=== PATIENT | male | born 1950 | race Caucasian/White ===

== ENCOUNTER 2022-07-27 19:35 | Inpatient (IN) ==
[2022-07-27] MEDS ORDERED: SODIUM CHLORIDE 0.9% 500 ML IV STA (20:04)
[2022-07-27] MEDS ORDERED: SODIUM CHLORIDE 0.9% 1000ML 2,000 ML IV ONE (20:15)
[2022-07-27] MEDS ORDERED: PIPERACILLIN/TAZOBACTAM 4.5 GM/120 ML BAG IV ONE (20:16)
--- NOTE | 2022-07-27 20:17 | Emergency Department Note ---
Impression & Plan Sepsis, Syncope, Anemia, Leukocytosis, Pyelonephritis, GUSTAVO (acute kidney injury) ED Provider Note NAME: CONNIE MENESES AGE: 71 SEX: M : 1950 ARRIVES VIA: Walk-In INFORMANT: Patient ED PROVIDER(S): Rock Marques DO CHIEF COMPLAINT: syncope HPI: Patient is a 71-year-old male with a past medical history of bladder cancer with a right nephrostomy tube in place who presents to the ER for syncopal event earlier today. Patient denies any head or neck pain. He notes he was on the ground for 1 to 2 hours as he was unable to get himself up. Family notes that he was a little confused yesterday. He denies any focal weakness or numbness in the arms or legs. He notes he is feeling slightly better right now. No chest pain or shortness of breath. No cough or congestion. No urinary symptoms but they are concerned that he may have a infection of his nephrostomy tube. PAST MEDICAL HISTORY:See Below PAST SURGICAL HISTORY:See Below FAMILY HISTORY:See Below SOCIAL HISTORY:See Below HOME MEDICATIONS:See Below ALLERGIES:See Below VITALS:See Below PHYSICAL EXAMINATION: GENERAL: Sitting up in bed, alert, well appearing, well nourished, no distress, non-toxic HEAD: Normal cephalic atraumatic EYE EXAM: normal conjunctiva. PERRL and EOM's grossly intact. OROPHARYNX: no exudate, no erythema, lips, buccal mucosa, and tongue normal and mucous membranes are moist NECK: supple, no nuchal rigidity, no adenopathy, non-tender CHEST: No reproducible tenderness LUNGS: Clear to auscultation. Normal chest wall mechanics HEART: no murmurs, S1 normal and S2 normal ABDOMEN: abdomen soft, non-tender, normo-active bowel sounds, no masses, no rebound or guarding. BACK: Nephrostomy tube in place on the right SKIN: no rashes and no bruising UPPER EXTREMITIES: upper extremities are grossly normal. LOWER EXTREMITIES: No pitting edema. NEURO EXAM: Normal sensorium, cranial nerves II-XII grossly intact, normal speech, no gross weakness of arms, no gross weakness of legs. No drift. Finger to nose intact. Gross sensation intact. MEDICAL DECISION MAKING: Patient is a 71-year-old male who presents ER for syncopal episode. IV was established blood work was obtained. External records were reviewed. Labs show leukocytosis of 35,000. Mild anemia at 7.9 down from baseline of what appears to be 9. INR unremarkable. BMP with a creatinine of 2.9 with known GUSTAVO. CO2 slightly low at 18 and a question of this secondary to renal failure. Troponin elevated at 124. Pro-Walker elevated at 91. UA does suggest a UTI with leuks whites and bacteria although contaminated. CT abdomen pelvis showed urothelial thickening bilaterally. Do favor this consistent with [place]. Patient was given IV fluids 2.5 L. He was given IV antibiotics. Updated bedside admitted to the hospital for further work-up. Triage Nursing notes reviewed. Limited review of prior medical records performed Vital Signs: reviewed and remarkable for hypotension and tachy Differential diagnosis: Differential diagnosis includes etiologies such as sepsis, UTI, pneumonia, metabolic, electrolyte abnormalities, cardiac sources, intracerebral event, t oxicologic, neurological, as well as others were entertained. ER treatment provided: See below Diagnostics interpreted by me include EKG and cardiac monitoring as listed below: -Cardiac Monitoring: An order was placed for continuous cardiac monitoring. The monitor shows a rate of 101 with sinus rhythm. -ECG: Sinus rhythm rate of 91 Normal axis No PVCs Mild ST segment -Laboratory studies:Interpreted by me as stated above in MDM and shown below. Imaging studies: Xrays: As interpreted by me: Portable AP upright 1 view of the chest shows no pneumonia CTs show: CT head and abdomen pelvis as described above Consultation(s): As described in MDM Procedures:none Critical Care: None Past Med/Surg History Medical History Bladder cancer Diabetes mellitus Dyslipidemia GERD (gastroesophageal reflux disease) HTN (hypertension) Surgical History S/P urological surgery Social History Smoking Status: Never smoker Preferred Language: Armenian Feels Safe at Home: Yes Allergies Allergies Allergy/AdvReac Type Severity Reaction Status Date / Time No Known Allergies Allergy Verified 07/27/22 21:21 Home Meds Home Medications Medication Instructions Recorded Confirmed allopurinol 100 mg tablet 100 mg PO QAM 01/02/22 07/27/22 atorvastatin 20 mg tablet 20 mg PO DAILY 01/02/22 07/27/22 cinnamon bark 500 mg capsule 2,000 mg PO DAILY 01/02/22 07/27/22 (Cinnamon) metformin 500 mg tablet,extended 500 mg PO DAILY 01/02/22 07/27/22 release 24 hr omeprazole 20 mg capsule,delayed 20 mg PO DAILYBB 01/02/22 07/27/22 release vitamin B complex 1 cap PO DAILY 01/02/22 07/27/22 acetaminophen 500 mg tablet 1,000 mg PO TID PRN Pain 07/27/22 07/27/22 (Tylenol Extra Strength) amlodipine 5 mg tablet 5 mg PO DAILY 07/27/22 07/27/22 linagliptin 5 mg tablet (Tradjenta) 5 mg PO DAILY 07/27/22 07/27/22 losartan 50 mg tablet 50 mg PO DAILY 07/27/22 07/27/22 sodium chloride 0.9 % (flush) 10 ml intra-catheter DAILY 07/27/22 07/27/22 thiamine HCl (vitamin B1) 50 mg 100 mg PO DAILY 07/27/22 07/27/22 tablet Results & Data (ED) Vital Signs Vital Signs - 24 hr 07/27/22 19:45 07/27/22 20:20 07/27/22 20:20 Temperature 36.3 C L Temperature Source Temporal Artery Scan Pulse Rate 103 H Pulse Rate [Apical] 85 Pulse Rate from SpO2 Sensor Pulse Rhythm Regular Pulse Strength Normal Respiratory Rate 18 20 Respiratory Effort / Characteristics Non-Labored Spontaneous Respiratory Depth Normal Respiratory Pattern Regular Blood Pressure 82/57 L Blood Pressure [Right Arm] 103/59 L Blood Pressure Mean 65 Blood Pressure Mean [Right Arm] 73 Blood Pressure Position Sitting Pulse Oximetry 98 98 98 Oxygen Delivery Method Room Air Room Air Room Air Sepsis Recent Fever Within 48 Hours No Sepsis New/Unexplained Change in Mental Status No Sepsis Action Taken by Nursing No Action Required 07/27/22 20:10 07/27/22 20:10 07/27/22 20:30 Temperature Temperature Source Pulse Rate 90 89 Pulse Rate [Apical] Pulse Rate from SpO2 Sensor 90 Pulse Rhythm Pulse Strength Respiratory Rate 18 Respiratory Effort / Characteristics Respiratory Depth Respiratory Pattern Blood Pressure 97/54 L Blood Pressure [Right Arm] Blood Pressure Mean 68 Blood Pressure Mean [Right Arm] Blood Pressure Position Pulse Oximetry 99 Oxygen Delivery Method Sepsis Recent Fever Within 48 Hours Sepsis New/Unexplained Change in Mental Status Sepsis Action Taken by Nursing 07/27/22 20:30 07/27/22 21:00 07/27/22 21:00 Temperature Temperature Source Pulse Rate 79 77 Pulse Rate [Apical] Pulse Rate from SpO2 Sensor 79 76 Pulse Rhythm Pulse Strength Respiratory Rate 15 16 Respiratory Effort / Characteristics Respiratory Depth Respiratory Pattern Blood Pressure 99/55 L Blood Pressure [Right Arm] Blood Pressure Mean 69 Blood Pressure Mean [Right Arm] Blood Pressure Position Pulse Oximetry 98 95 Oxygen Delivery Method Sepsis Recent Fever Within 48 Hours Sepsis New/Unexplained Change in Mental Status Sepsis Action Taken by Nursing 07/27/22 21:30 07/27/22 21:30 07/27/22 22:00 Temperature Temperature Source Pulse Rate 72 Pulse Rate [Apical] Pulse Rate from SpO2 Sensor 72 Pulse Rhythm Pulse Strength Respiratory Rate 16 Respiratory Effort / Characteristics Respiratory Depth Respiratory Pattern Blood Pressure 109/55 L 99/56 L Blood Pressure [Right Arm] Blood Pressure Mean 73 70 Blood Pressure Mean [Right Arm] Blood Pressure Position Pulse Oximetry 97 Oxygen Delivery Method Sepsis Recent Fever Within 48 Hours Sepsis New/Unexplained Change in Mental Status Sepsis Action Taken by Nursing 07/27/22 22:00 07/27/22 22:30 07/27/22 22:30 Temperature Temperature Source Pulse Rate 80 70 Pulse Rate [Apical] Pulse Rate from SpO2 Sensor 74 70 Pulse Rhythm Pulse Strength Respiratory Rate 14 18 Respiratory Effort / Characteristics Respiratory Depth Respiratory Pattern Blood Pressure 110/56 L Blood Pressure [Right Arm] Blood Pressure Mean 74 Blood Pressure Mean [Right Arm] Blood Pressure Position Pulse Oximetry 87 L 98 Oxygen Delivery Method Sepsis Recent Fever Within 48 Hours Sepsis New/Unexplained Change in Mental Status Sepsis Action Taken by Nursing 07/28/22 00:38 Temperature Temperature Source Pulse Rate 69 Pulse Rate [Apical] Pulse Rate from SpO2 Sensor Pulse Rhythm Pulse Strength Respiratory Rate Respiratory Effort / Characteristics Respiratory Depth Respiratory Pattern Blood Pressure Blood Pressure [Right Arm] Blood Pressure Mean Blood Pressure Mean [Right Arm] Blood Pressure Position Pulse Oximetry Oxygen Delivery Method Sepsis Recent Fever Within 48 Hours Sepsis New/Unexplained Change in Mental Status Sepsis Action Taken by Nursing Laboratory Data 07/27/22 22:35 07/27/22 20:08 Lab Results 07/27/22 07/27/22 07/27/22 Range/Units 20:08 20:08 20:08 WBC 35.13 H* (4.8-10.8) K/ul RBC 3.43 L (4.70-6.10) M/uL Hgb 7.9 L (14.0-18.0) g/dl Hct 24.8 L (42.0-52.0) % MCV 72.3 L (80.0-100.0) fL MCH 23.0 L (25.0-34.0) pg MCHC 31.9 L (32.0-36.0) g/dL RDW Std Deviation 45.5 (36.4-46.3) fL RDW Coeff of Krystal 17.4 H (11.5-14.5) % Plt Count 423 H (130-400) K/uL MPV 8.4 L (9.4-12.4) fL Immature Gran % (Auto) 1.3 % Neut % (Auto) 88.1 % Lymph % (Auto) 7.2 % [place] % (Auto) 3.0 % Eos % (Auto) 0.0 % Baso % (Auto) 0.4 % Neut # (Auto) 30.95 H (1.40-6.50) K/uL Lymph # (Auto) 2.53 (1.2-3.4) K/uL [place] # (Auto) 1.04 H (0.11-0.59) K/uL Eos # (Auto) 0.01 (0-0.50) K/uL Baso # (Auto) 0.13 (0-0.2) K/uL Immature Gran # (Auto) 0.47 H (0.01-0.20) K/uL Hypochromasia Present PT (9.0-12.0) Seconds INR (0.9-1.1) VBG pH (7.36-7.41) VBG pCO2 (38-50) mmHg VBG pO2 mmHg VBG HCO3 mmol/L VBG O2 Saturation % VBG Base Excess mEq/L Sodium 130 L (136-145) mmol/L Potassium 3.7 (3.5-5.1) mmol/L Chloride 100 (98-107) mmol/L Carbon Dioxide 18 L (21-32) mmol/L Anion Gap 12 H (3-11) BUN 70 H (6-23) mg/dl Creatinine 2.96 H (0.6-1.4) mg/dl Est Cr Clr Drug Dosing 22.2 ml/min Est GFR ( Amer) 23.2 ml/min Est GFR (Non-Af Amer) 20.0 ml/min BUN/Creatinine Ratio 23.6 H (10-20) Glucose 273 H (70-99(Fasting)) mg/dl Osmolality (280-300) mOsm/kg Lactate 1.5 (0.4-2.0) mmol/L Calcium 10.0 (8.6-10.3) mg/dl Magnesium (1.7-2.4) mg/dl Total Bilirubin 0.5 (0.2-1.0) mg/dl AST 18 (13-39) U/L ALT 11 (7-52) U/L Alkaline Phosphatase 141 H (34-104) U/L Ammonia (18-72) umol/L Total Creatine Kinase 478 H (30-223) U/L Troponin I High Sens 175.0 H* (0-20) pg/ml Total Protein 7.3 (6.0-8.3) gm/dl Albumin 3.0 L (3.4-5.0) gm/dl Globulin 4.3 H (2.5-4.0) gm/dl Albumin/Globulin Ratio 0.7 L (0.9-2) Lipase 24 (11-82) U/L Procalcitonin (0-0.5) ng/ml TSH (0.300-4.500) uIu/ml Urine Color Urine Appearance (Clear) Urine pH (4.5-7.5) Ur Specific [place] (1.000-1.030) Urine Protein (Negative) Urine Glucose (UA) (Negative) Urine Ketones (Negative) Urine Blood (Negative) Urine Nitrite (Negative) Urine Bilirubin (Negative) Urine Urobilinogen (Negative) Ur Leukocyte Esterase (Negative) Urine WBC (Auto) (0-5) /hpf Urine RBC (Auto) (0-4) /hpf U Hyaline Cast (Auto) (0-5) /lpf U Epithel Cells (Auto) (0-5) /lpf Urine Bacteria (Auto) (Negative) Amorphous Sediment (None Prsent) Urine Yeast Ethyl Alcohol mg/dL (<10.0) mg/dl SARS-CoV-2 (PCR) (Negative) Influenza Type A (PCR) (Neg) Influenza Type B (PCR) (Neg) RSV (RT-PCR) (Neg) Blood Type Antibody Screen 07/27/22 07/27/22 07/27/22 Range/Units 20:08 20:08 20:08 WBC (4.8-10.8) K/ul RBC (4.70-6.10) M/uL Hgb (14.0-18.0) g/dl Hct (42.0-52.0) % MCV (80.0-100.0) fL MCH (25.0-34.0) pg MCHC (32.0-36.0) g/dL RDW Std Deviation (36.4-46.3) fL RDW Coeff of Krystal (11.5-14.5) % Plt Count (130-400) K/uL MPV (9.4-12.4) fL Immature Gran % (Auto) % Neut % (Auto) % Lymph % (Auto) % [place] % (Auto) % Eos % (Auto) % Baso % (Auto) % Neut # (Auto) (1.40-6.50) K/uL Lymph # (Auto) (1.2-3.4) K/uL [place] # (Auto) (0.11-0.59) K/uL Eos # (Auto) (0-0.50) K/uL Baso # (Auto) (0-0.2) K/uL Immature Gran # (Auto) (0.01-0.20) K/uL Hypochromasia PT (9.0-12.0) Seconds INR (0.9-1.1) VBG pH (7.36-7.41) VBG pCO2 (38-50) mmHg VBG pO2 mmHg VBG HCO3 mmol/L VBG O2 Saturation % VBG Base Excess mEq/L Sodium (136-145) mmol/L Potassium (3.5-5.1) mmol/L Chloride (98-107) mmol/L Carbon Dioxide (21-32) mmol/L Anion Gap (3-11) BUN (6-23) mg/dl Creatinine (0.6-1.4) mg/dl Est Cr Clr Drug Dosing ml/min Est GFR ( Amer) ml/min Est GFR (Non-Af Amer) ml/min BUN/Creatinine Ratio (10-20) Glucose (70-99(Fasting)) mg/dl Osmolality (280-300) mOsm/kg Lactate (0.4-2.0) mmol/L Calcium (8.6-10.3) mg/dl Magnesium (1.7-2.4) mg/dl Total Bilirubin (0.2-1.0) mg/dl AST (13-39) U/L ALT (7-52) U/L Alkaline Phosphatase (34-104) U/L Ammonia (18-72) umol/L Total Creatine Kinase (30-223) U/L Troponin I High Sens (0-20) pg/ml Total Protein (6.0-8.3) gm/dl Albumin (3.4-5.0) gm/dl Globulin (2.5-4.0) gm/dl Albumin/Globulin Ratio (0.9-2) Lipase (11-82) U/L Procalcitonin 91.06 H (0-0.5) ng/ml TSH (0.300-4.500) uIu/ml Urine Color Urine Appearance (Clear) Urine pH (4.5-7.5) Ur Specific [place] (1.000-1.030) Urine Protein (Negative) Urine Glucose (UA) (Negative) Urine Ketones (Negative) Urine Blood (Negative) Urine Nitrite (Negative) Urine Bilirubin (Negative) Urine Urobilinogen (Negative) Ur Leukocyte Esterase (Negative) Urine WBC (Auto) (0-5) /hpf Urine RBC (Auto) (0-4) /hpf U Hyaline Cast (Auto) (0-5) /lpf U Epithel Cells (Auto) (0-5) /lpf Urine Bacteria (Auto) (Negative) Amorphous Sediment (None Prsent) Urine Yeast Ethyl Alcohol mg/dL < 10.0 (<10.0) mg/dl SARS-CoV-2 (PCR) NEGATIVE (Negative) Influenza Type A (PCR) Negative (Neg) Influenza Type B (PCR) Negative (Neg) RSV (RT-PCR) Negative (Neg) Blood Type Antibody Screen 07/27/22 07/27/22 07/27/22 Range/Units 20:08 20:08 20:08 WBC (4.8-10.8) K/ul RBC (4.70-6.10) M/uL Hgb (14.0-18.0) g/dl Hct (42.0-52.0) % MCV (80.0-100.0) fL MCH (25.0-34.0) pg MCHC (32.0-36.0) g/dL RDW Std Deviation (36.4-46.3) fL RDW Coeff of Krystal (11.5-14.5) % Plt Count (130-400) K/uL MPV (9.4-12.4) fL Immature Gran % (Auto) % Neut % (Auto) % Lymph % (Auto) % [place] % (Auto) % Eos % (Auto) % Baso % (Auto) % Neut # (Auto) (1.40-6.50) K/uL Lymph # (Auto) (1.2-3.4) K/uL [place] # (Auto) (0.11-0.59) K/uL Eos # (Auto) (0-0.50) K/uL Baso # (Auto) (0-0.2) K/uL Immature Gran # (Auto) (0.01-0.20) K/uL Hypochromasia PT 11.9 (9.0-12.0) Seconds INR 1.1 (0.9-1.1) VBG pH (7.36-7.41) VBG pCO2 (38-50) mmHg VBG pO2 mmHg VBG HCO3 mmol/L VBG O2 Saturation % VBG Base Excess mEq/L Sodium (136-145) mmol/L Potassium (3.5-5.1) mmol/L Chloride (98-107) mmol/L Carbon Dioxide (21-32) mmol/L Anion Gap (3-11) BUN (6-23) mg/dl Creatinine (0.6-1.4) mg/dl Est Cr Clr Drug Dosing ml/min Est GFR ( Amer) ml/min Est GFR (Non-Af Amer) ml/min BUN/Creatinine Ratio (10-20) Glucose (70-99(Fasting)) mg/dl Osmolality 304 H (280-300) mOsm/kg Lactate (0.4-2.0) mmol/L Calcium (8.6-10.3) mg/dl Magnesium (1.7-2.4) mg/dl Total Bilirubin (0.2-1.0) mg/dl AST (13-39) U/L ALT (7-52) U/L Alkaline Phosphatase (34-104) U/L Ammonia (18-72) umol/L Total Creatine Kinase (30-223) U/L Troponin I High Sens (0-20) pg/ml Total Protein (6.0-8.3) gm/dl Albumin (3.4-5.0) gm/dl Globulin (2.5-4.0) gm/dl Albumin/Globulin Ratio (0.9-2) Lipase (11-82) U/L Procalcitonin (0-0.5) ng/ml TSH 1.969 (0.300-4.500) uIu/ml Urine Color Urine Appearance (Clear) Urine pH (4.5-7.5) Ur Specific [place] (1.000-1.030) Urine Protein (Negative) Urine Glucose (UA) (Negative) Urine Ketones (Negative) Urine Blood (Negative) Urine Nitrite (Negative) Urine Bilirubin (Negative) Urine Urobilinogen (Negative) Ur Leukocyte Esterase (Negative) Urine WBC (Auto) (0-5) /hpf Urine RBC (Auto) (0-4) /hpf U Hyaline Cast (Auto) (0-5) /lpf U Epithel Cells (Auto) (0-5) /lpf Urine Bacteria (Auto) (Negative) Amorphous Sediment (None Prsent) Urine Yeast Ethyl Alcohol mg/dL (<10.0) mg/dl SARS-CoV-2 (PCR) (Negative) Influenza Type A (PCR) (Neg) Influenza Type B (PCR) (Neg) RSV (RT-PCR) (Neg) Blood Type Antibody Screen 07/27/22 07/27/22 07/27/22 Range/Units 21:18 22:35 22:35 WBC (4.8-10.8) K/ul RBC (4.70-6.10) M/uL Hgb (14.0-18.0) g/dl Hct (42.0-52.0) % MCV (80.0-100.0) fL MCH (25.0-34.0) pg MCHC (32.0-36.0) g/dL RDW Std Deviation (36.4-46.3) fL RDW Coeff of Krystal (11.5-14.5) % Plt Count (130-400) K/uL MPV (9.4-12.4) fL Immature Gran % (Auto) % Neut % (Auto) % Lymph % (Auto) % [place] % (Auto) % Eos % (Auto) % Baso % (Auto) % Neut # (Auto) (1.40-6.50) K/uL Lymph # (Auto) (1.2-3.4) K/uL [place] # (Auto) (0.11-0.59) K/uL Eos # (Auto) (0-0.50) K/uL Baso # (Auto) (0-0.2) K/uL Immature Gran # (Auto) (0.01-0.20) K/uL Hypochromasia PT (9.0-12.0) Seconds INR (0.9-1.1) VBG pH (7.36-7.41) VBG pCO2 (38-50) mmHg VBG pO2 mmHg VBG HCO3 mmol/L VBG O2 Saturation % VBG Base Excess mEq/L Sodium (136-145) mmol/L Potassium (3.5-5.1) mmol/L Chloride (98-107) mmol/L Carbon Dioxide (21-32) mmol/L Anion Gap (3-11) BUN (6-23) mg/dl Creatinine (0.6-1.4) mg/dl Est Cr Clr Drug Dosing ml/min Est GFR ( Amer) ml/min Est GFR (Non-Af Amer) ml/min BUN/Creatinine Ratio (10-20) Glucose (70-99(Fasting)) mg/dl Osmolality (280-300) mOsm/kg Lactate (0.4-2.0) mmol/L Calcium (8.6-10.3) mg/dl Magnesium (1.7-2.4) mg/dl Total Bilirubin (0.2-1.0) mg/dl AST (13-39) U/L ALT (7-52) U/L Alkaline Phosphatase (34-104) U/L Ammonia 14.0 L (18-72) umol/L Total Creatine Kinase (30-223) U/L Troponin I High Sens (0-20) pg/ml Total Protein (6.0-8.3) gm/dl Albumin (3.4-5.0) gm/dl Globulin (2.5-4.0) gm/dl Albumin/Globulin Ratio (0.9-2) Lipase (11-82) U/L Procalcitonin (0-0.5) ng/ml TSH (0.300-4.500) uIu/ml Urine Color [place] Urine Appearance Turbid A (Clear) Urine pH 5.0 (4.5-7.5) Ur Specific [place] 1.016 (1.000-1.030) Urine Protein 3+ H (Negative) Urine Glucose (UA) Negative (Negative) Urine Ketones Negative (Negative) Urine Blood 3+ H (Negative) Urine Nitrite Negative (Negative) Urine Bilirubin Negative (Negative) Urine Urobilinogen Negative (Negative) Ur Leukocyte Esterase 3+ H (Negative) Urine WBC (Auto) >30 H (0-5) /hpf Urine RBC (Auto) 5-10 H (0-4) /hpf U Hyaline Cast (Auto) 0 (0-5) /lpf U Epithel Cells (Auto) >30 H (0-5) /lpf Urine Bacteria (Auto) 2+ H (Negative) Amorphous Sediment Present A (None Prsent) Urine Yeast Not Reportable Ethyl Alcohol mg/dL (<10.0) mg/dl SARS-CoV-2 (PCR) (Negative) Influenza Type A (PCR) (Neg) Influenza Type B (PCR) (Neg) RSV (RT-PCR) (Neg) Blood Type A Negative Antibody Screen NEGATIVE 07/27/22 07/27/22 07/27/22 Range/Units 22:35 22:35 22:35 WBC (4.8-10.8) K/ul RBC (4.70-6.10) M/uL Hgb 6.3 L* (14.0-18.0) g/dl Hct 20.2 L* (42.0-52.0) % MCV (80.0-100.0) fL MCH (25.0-34.0) pg MCHC (32.0-36.0) g/dL RDW Std Deviation (36.4-46.3) fL RDW Coeff of Krystal (11.5-14.5) % Plt Count (130-400) K/uL MPV (9.4-12.4) fL Immature Gran % (Auto) % Neut % (Auto) % Lymph % (Auto) % [place] % (Auto) % Eos % (Auto) % Baso % (Auto) % Neut # (Auto) (1.40-6.50) K/uL Lymph # (Auto) (1.2-3.4) K/uL [place] # (Auto) (0.11-0.59) K/uL Eos # (Auto) (0-0.50) K/uL Baso # (Auto) (0-0.2) K/uL Immature Gran # (Auto) (0.01-0.20) K/uL Hypochromasia PT (9.0-12.0) Seconds INR (0.9-1.1) VBG pH 7.29 L (7.36-7.41) VBG pCO2 36 L (38-50) mmHg VBG pO2 22 mmHg VBG HCO3 17 mmol/L VBG O2 Saturation < 60.0 % VBG Base Excess -8.5 mEq/L Sodium (136-145) mmol/L Potassium (3.5-5.1) mmol/L Chloride (98-107) mmol/L Carbon Dioxide (21-32) mmol/L Anion Gap (3-11) BUN (6-23) mg/dl Creatinine (0.6-1.4) mg/dl Est Cr Clr Drug Dosing ml/min Est GFR ( Amer) ml/min Est GFR (Non-Af Amer) ml/min BUN/Creatinine Ratio (10-20) Glucose (70-99(Fasting)) mg/dl Osmolality (280-300) mOsm/kg Lactate (0.4-2.0) mmol/L Calcium (8.6-10.3) mg/dl Magnesium 1.6 L (1.7-2.4) mg/dl Total Bilirubin (0.2-1.0) mg/dl AST (13-39) U/L ALT (7-52) U/L Alkaline Phosphatase (34-104) U/L Ammonia (18-72) umol/L Total Creatine Kinase (30-223) U/L Troponin I High Sens 124.9 H* D (0-20) pg/ml Total Protein (6.0-8.3) gm/dl Albumin (3.4-5.0) gm/dl Globulin (2.5-4.0) gm/dl Albumin/Globulin Ratio (0.9-2) Lipase (11-82) U/L Procalcitonin (0-0.5) ng/ml TSH (0.300-4.500) uIu/ml Urine Color Urine Appearance (Clear) Urine pH (4.5-7.5) Ur Specific [place] (1.000-1.030) Urine Protein (Negative) Urine Glucose (UA) (Negative) Urine Ketones (Negative) Urine Blood (Negative) Urine Nitrite (Negative) Urine Bilirubin (Negative) Urine Urobilinogen (Negative) Ur Leukocyte Esterase (Negative) Urine WBC (Auto) (0-5) /hpf Urine RBC (Auto) (0-4) /hpf U Hyaline Cast (Auto) (0-5) /lpf U Epithel Cells (Auto) (0-5) /lpf Urine Bacteria (Auto) (Negative) Amorphous Sediment (None Prsent) Urine Yeast Ethyl Alcohol mg/dL (<10.0) mg/dl SARS-CoV-2 (PCR) (Negative) Influenza Type A (PCR) (Neg) Influenza Type B (PCR) (Neg) RSV (RT-PCR) (Neg) Blood Type Antibody Screen Administered Medications Discontinued Medications Sodium Chloride (Nss) 500 mls @ 999 mls/hr IV .Q31M STA Stop: 07/27/22 20:34 Last Infusion: 07/27/22 21:37 Dose: 0 mls/hr Documented By: Admin: 07/27/22 21:37 Dose: 999 mls/hr Documented By: CORKY Sodium Chloride (Nss 1000ml) 2,000 mls @ 999 mls/hr IV .Q2H1M ONE Stop: 07/27/22 22:15 Last Infusion: 07/27/22 21:37 Dose: 0 mls/hr Documented By: Admin: 07/27/22 20:23 Dose: 999 mls/hr Documented By: CORKY Piperacillin Sod/Tazobactam Sod (Zosyn) 4.5 gm in 120 mls @ 240 mls/hr IV NOW ONE Stop: 07/27/22 20:45 Last Infusion: 07/27/22 20:54 Dose: 0 mls/hr Documented By: Admin: 07/27/22 20:31 Dose: 240 mls/hr Documented By: CORKY Vancomycin HCl 1,500 mg/ (Sodium Chloride) 530 mls @ 200 mls/hr IV NOW ONE Stop: 07/28/22 00:08 Last Admin: 07/27/22 22:24 Dose: 200 mls/hr Documented By: CORKY Sodium Chloride (Nss 1000ml) 500 mls @ 999 mls/hr IV .Q31M ONE Stop: 07/27/22 22:00 Last Infusion: 07/27/22 22:25 Dose: 0 mls/hr Documented By: Admin: 07/27/22 21:51 Dose: 999 mls/hr Documented By: CORKY Thiamine HCl 100 mg/ Syringe 10 mls @ 2 mls/min IV NOW ONE Stop: 07/27/22 22:04 Last Admin: 07/27/22 22:25 Dose: 2 mls/min Documented By: CORKY Imaging Data Radiologist's Impression: Abdomen/Pelvis CT 07/27/22 20:15 CT OF THE ABDOMEN AND PELVIS WITHOUT CONTRAST CLINICAL HISTORY: Sepsis. Right nephrostomy tube in place. COMPARISON STUDY: No previous studies for comparison. TECHNIQUE: Axial images of the abdomen and pelvis were obtained without IV contrast. Images were reviewed in the axial, sagittal, and coronal planes. Automated exposure control was utilized for the study. A dose lowering [place] was utilized adhering to the principles of ALARA. FINDINGS: Moderate cardiomegaly and a small pericardial effusion are noted. Evaluation of the abdomen and pelvis is suboptimal on this unenhanced examination. There is mild splenomegaly. A 8 mm lateral segment hepatic lesion favors a cyst. There are gallstones within the gallbladder. There is no evidence for acute cholecystitis. The adrenal glands and pancreas are unremarkable. There is no biliary or pancreatic ductal dilatation. There is no hydronephrosis. A percutaneous right nephroureterostomy catheter is in place. No ureteral calculi are identified. There is urothelial thickening of the left ureter. There is also urothelial thickening with mild stranding adjacent to the right ureter. Mass- like thickening of the anterior wall the bladder is noted. This measures approximately 4 cm. The remainder of the bladder wall is irregular and thickened as well. Brachytherapy seeds within the prostate are noted. There is soft tissue thickening and fluid adjacent to the prostate and the base of the bladder. This extends to the adjacent medial bilateral pubic bones with associated small bone erosions of the medial bilateral pubic bones. No pathologic fracture is identified. Note is made of moderate perirectal stranding. There are prominent perirectal lymph nodes. There is also stranding adjacent to the bladder and the prostate. Mild rectal wall thickening is noted. There is no evidence for a bowel obstruction. Colonic diverticulosis is present without evidence for acute divert iculitis. There are multiple mildly enlarged pelvic lymph nodes. Index left external iliac lymph node on image 305 of [id number] measures 1.6 x 1.2 cm. Index right external iliac node measures 1.6 x 1.3 cm. IMPRESSION: 1. Right percutaneous nephroureterostomy catheter in place. No hydronephrosis. Urothelial thickening of the bilateral ureters which could be correlated with urinalysis to exclude an infectious process. No renal abscess. 2. Irregular mass-like thickening of the bladder wall, most pronounced anteriorly. This is suggestive of a urothelial neoplasm. 3. Soft tissue thickening and a small amount of associated fluid adjacent to the apex of the prostate. Associated subtle erosions of the medial bilateral pubic bones. These findings are nonspecific and may be neoplastic or infectious. 4. Multiple mildly enlarged pelvic lymph nodes, as described above. These may be reactive or neoplastic. 5. Pelvic infiltration, including perirectal stranding. This may be treatment related. A mild proctitis cannot be excluded. No extraluminal gas. 6. Small pericardial effusion. 7. Cholelithiasis. 8. No bowel obstruction. ACT 112: Negative or not required by law. Electronically signed by: Dylon Keene M.D. 07/27/2022 9:[address] 07/27/22 20:15 CT OF THE HEAD WITHOUT CONTRAST CLINICAL HISTORY: fall COMPARISON STUDY: No previous studies for comparison. TECHNIQUE: Helical axial images of the head were obtained without IV contrast. Automated exposure control was utilized for the study. A dose lowering technique was utilized adhering to the principles of ALARA. FINDINGS: No acute intracranial hemorrhage, midline shift or mass effect is present. The ventricular system is unremarkable. The basal cisterns are patent. No extra-axial collections are present. There are no findings to suggest acute dural sinus thrombosis or acute territorial infarct. No significant calvarial abnormalities are present. Visualized portions of the sinuses and mastoid air cells are clear. IMPRESSION: 1. No acute intracranial findings. 2. No acute calvarial fracture. ACT 112: Negative or not required by law. Electronically signed by: Dylon Keene M.D. 07/27/2022 8:54 PM Discharge Plan Visit Data Chief Complaint: Fall Stated Complaint: CHILLS,CONFUSION,FALL,WEAKNESS ED Provider: Rock Marques Discharge Problem: Sepsis, Syncope, Anemia, Leukocytosis, Pyelonephritis, GUSTAVO (acute kidney injury) Forms Stand Alone Forms: My [facility] Prescriptions Prescriptions: No Action metformin 500 mg tablet extended release 24 hr 500 mg PO DAILY allopurinol 100 mg tablet 100 mg PO QAM omeprazole 20 mg capsule,delayed release(DR/EC) 20 mg PO DAILYBB atorvastatin 20 mg tablet 20 mg PO DAILY vitamin B complex Capsule 1 cap PO DAILY cinnamon bark [Cinnamon] 500 mg Capsule 2,000 mg PO DAILY losartan 50 mg Tablet 50 mg PO DAILY amlodipine 5 mg Tablet 5 mg PO DAILY acetaminophen [Tylenol Extra Strength] 500 mg Tablet 1,000 mg PO TID PRN (Reason: Pain) thiamine HCl (vitamin B1) 50 mg Tablet 100 mg PO DAILY sodium chloride 0.9 % (flush) Syringe 10 ml intra-catheter DAILY Tradjenta 5 mg Tablet 5 mg PO DAILY Referrals Referrals: Carlitos Chaparro MD [Primary Care Provider] -
[2022-07-27 20:40] LABS: Hematocrit (blood only) 24.8 % (42.0-52.0); Hemoglobin 7.9 g/dl (14.0-18.0); Mean Corpuscular Hgb Conc 31.9 g/dL (32.0-36.0); Mean Corpuscular Volume 72.3 fL (80.0-100.0); Mean Platelet Volume 8.4 fL (9.4-12.4); Platelet Count 423 K/uL (130-400); RDW Coefficient of Variation 17.4 % (11.5-14.5); RDW Standard Deviation 45.5 fL (36.4-46.3); Red Blood Count 3.43 M/uL (4.70-6.10); White Blood Count 35.13 K/ul (4.8-10.8)
[2022-07-27 20:53] LABS: Albumin Globulin Ratio 0.7 (0.9-2); BUN Creatinine Ratio 23.6 (10-20); Bilirubin,Total 0.5 mg/dl (0.2-1.0); Creatinine Clr Calc Pharmacy 22.2 ml/min; Est GFR (African American) 23.2 ml/min; Globulin 4.3 gm/dl (2.5-4.0); Potassium 3.7 mmol/L (3.5-5.1); Total Protein 7.3 gm/dl (6.0-8.3)
--- NOTE | 2022-07-27 20:55 | CT Scan Report ---
CT OF THE HEAD WITHOUT CONTRAST CLINICAL HISTORY: fall COMPARISON STUDY: No previous studies for comparison. TECHNIQUE: Helical axial images of the head were obtained without IV contrast. Automated exposure con trol was utilized for the study. A dose lowering technique was utilized adhering to the principles o f ALARA. FINDINGS: No acute intracranial hemorrhage, midline shift or mass effect is present. The ventricular system is unremarkable. The basal cisterns are patent. No extra-axial collections are present. There are no findings to suggest acute dural sinus thrombosis or acute territorial infarct. No significant calvarial abnormalities are present. Visualized portions of the sinuses and mastoid air cells are ashly ar. IMPRESSION: 1. No acute intracranial findings. 2. No acute calvarial fracture. ACT 112: Negative or not required by law. Electronically signed by: Dylon Keene M.D. 07/27/2022 8:54 PM
[2022-07-27 20:57] LABS: Basophils # (auto) 0.13 K/uL (0-0.2); Basophils % (auto) 0.4 %; Eosinophils # (auto) 0.01 K/uL (0-0.50); Hypochromasia Present; Immature Granulocytes # (auto) 0.47 K/uL (0.01-0.20); Immature Granulocytes % (auto) 1.3 %; Lymphocytes # (auto) 2.53 K/uL (1.2-3.4); Lymphocytes % (auto) 7.2 %; Monocytes # (auto) 1.04 K/uL (0.11-0.59); Neutrophils # (auto) 30.95 K/uL (1.40-6.50); Neutrophils % (auto) 88.1 %
--- NOTE | 2022-07-27 21:13 | CT Scan Report ---
CT OF THE ABDOMEN AND PELVIS WITHOUT CONTRAST CLINICAL HISTORY: Sepsis. Right nephrostomy tube in place. COMPARISON STUDY: No previous studies for comparison. TECHNIQUE: Axial images of the abdomen and pelvis were obtained without IV contrast. Images were revi ewed in the axial, sagittal, and coronal planes. Automated exposure control was utilized for the angel dy. A dose lowering technique was utilized adhering to the principles of ALARA. FINDINGS: Moderate cardiomegaly and a small pericardial effusion are noted. Evaluation of the abdomen and pelvis is suboptimal on this unenhanced examination. There is mild splenomegaly. A 8 mm lateral segment hepatic lesion favors a cyst. There are gallstones within the gallbladder. There is no eviden ce for acute cholecystitis. The adrenal glands and pancreas are unremarkable. There is no biliary or pancreatic ductal dilatation. There is no hydronephrosis. A percutaneous right nephroureterostomy cat heter is in place. No ureteral calculi are identified. There is urothelial thickening of the left ure ter. There is also urothelial thickening with mild stranding adjacent to the right ureter. Mass-like thickening of the anterior wall the bladder is noted. This measures approximately 4 cm. The remainder of the bladder wall is irregular and thickened as well. Brachytherapy seeds within the prostate are noted. There is soft tissue thickening and fluid adjacent to the prostate and the base of the bladder . This extends to the adjacent medial bilateral pubic bones with associated small bone erosions of th e medial bilateral pubic bones. No pathologic fracture is identified. Note is made of moderate perire ctal stranding. There are prominent perirectal lymph nodes. There is also stranding adjacent to the b ladder and the prostate. Mild rectal wall thickening is noted. There is no evidence for a bowel obstr uction. Colonic diverticulosis is present without evidence for acute diverticulitis. There are multip le mildly enlarged pelvic lymph nodes. Index left external iliac lymph node on image 305 of [id number] measu res 1.6 x 1.2 cm. Index right external iliac node measures 1.6 x 1.3 cm. IMPRESSION: 1. Right percutaneous nephroureterostomy catheter in place. No hydronephrosis. Urothelial thickening of the bilateral ureters which could be correlated with urinalysis to exclude an infectious process. No renal abscess. 2. Irregular mass-like thickening of the bladder wall, most pronounced anteriorly. This is suggestive of a urothelial neoplasm. 3. Soft tissue thickening and a small amount of associated fluid adjacent to the apex of the prostate . Associated subtle erosions of the medial bilateral pubic bones. These findings are nonspecific and may be neoplastic or infectious. 4. Multiple mildly enlarged pelvic lymph nodes, as described above. These may be reactive or neoplast ic. 5. Pelvic infiltration, including perirectal stranding. This may be treatment related. A mild proctit is cannot be excluded. No extraluminal gas. 6. Small pericardial effusion. 7. Cholelithiasis. 8. No bowel obstruction. ACT 112: Negative or not required by law. Electronically signed by: Dylon Keene M.D. 07/27/2022 9:11 PM
[2022-07-27 21:16] LABS: Influenza A virus by PCR Negative (Neg); Influenza B virus by PCR Negative (Neg); RSV by PCR Negative (Neg); SARS CoV2 RNA(COVID-19) Ceph NEGATIVE (Negative)
[2022-07-27] MEDS ORDERED: VANCOMYCIN HCL 1,500 MG in SODIUM CHLORIDE 0.9% 500 ML IV ONE (21:30)
[2022-07-27] MEDS ORDERED: SODIUM CHLORIDE 0.9% 1000ML 500 ML IV ONE (21:30)
[2022-07-27] MEDS ORDERED: VANCOMYCIN CONSULT ACTIVE PRN (21:30)
[2022-07-27 21:49] LABS: Appearance Urine Turbid (Clear); Bacteria Urine Automated 2+ (Negative); Bilirubin Urine Negative (Negative); Blood Urine 3+ (Negative); Color Urine Orange; Epithelial Cell Urine Auto >30 /lpf (0-5); Glucose Urine UA Negative (Negative); Ketones Urine Negative (Negative); Leukocyte Esterase Urine 3+ (Negative); Nitrite Urine Negative (Negative); Protein Urine 3+ (Negative); Specific Gravity Urine 1.016 (1.000-1.030); Urobilinogen Urine Negative (Negative); WBC Urine Automated >30 /hpf (0-5)
[2022-07-27] MEDS ORDERED: THIAMINE HCL 100 MG in SYRINGE 9 ML IV ONE (22:00)
[2022-07-27 22:02] LABS: Amorphous Sediment Urine Present (None Prsent); Cast Urine Automated 0 /lpf (0-5)
[2022-07-27 22:10] LABS: INR 1.1 (0.9-1.1); Prothrombin Time 11.9 Seconds (9.0-12.0)
[2022-07-27 22:44] LABS: Base Excess VBG -8.5 mEq/L; HCO3 VBG 17 mmol/L; Oxygen Saturation VBG < 60.0 %; PCO2 VBG 36 mmHg (38-50); PO2 VBG 22 mmHg; pH VBG 7.29 (7.36-7.41)
[2022-07-27] MEDS ORDERED: LACTATED RINGER'S 1,000 ML IV ONE (22:50)
[2022-07-27 22:56] LABS: Hematocrit (blood only) 20.2 % (42.0-52.0); Hemoglobin 6.3 g/dl (14.0-18.0)
[2022-07-27 23:06] LABS: Magnesium 1.6 mg/dl (1.7-2.4)
[2022-07-27 23:51] LABS: Troponin I High Sensitivity 124.9 pg/ml (0-20)
[2022-07-28] MEDS ORDERED: MAGNESIUM SULFATE / D5W 1 GM/100 ML BAG IV ONE (00:28)
[2022-07-28] MEDS ORDERED: SODIUM CHLORIDE 0.9% 250 ML IV PRN (00:59)
--- NOTE | 2022-07-28 00:59 | History & Physical Report ---
Date of Service July 28, 2022 Assessment & Plan (1) Severe sepsis: Plan: SIRS plus ARF on CKD Secondary to complicated UTI/proctitis hx bladder cancer on Keytruda, right hydronephrosis status post percutaneous nephroureteral tube placement Syncope likely secondary to orthostasis given hypotension upon arrival at the ER Rule out cardiac dysfunction AGMA secondary to kidney dysfunction Rhabdomyolysis secondary to immobility following fall Troponin elevation secondary to illness Acute on chronic anemia secondary to bleed hx prostate cancer status post radiation DM 2 on oral medications, reasonable control as of recent hemoglobin A1c of 7.6 last June 2022 past tobacco/alcohol abuse PCU given hypotension CS, Vancomycin, Zosyn Appropriate to hold home BP meds for now Monitor creatinine response to IVF Nephrology consult if without improvement Follow troponin TTE Re: Syncope Anemia work-up, transfuse PRBC if hemoglobin less than 7 and or from symptomatic anemia TTE Re: Hypotension Basal bolus insulin, ISS BG goal 1 10-1 40, carb count coverage DVT prophylaxis. SCDs Re: bleed Full code Patient requesting updates from providers. Ms. Lisa Robert, contact #[phone]. Text document was generated using [employer] voice recognition software. It may contain grammatical or spelling errors. Kindly contact undersigned for clarification of any documentation item in question. History of Present Illness Primary Care Provider: Carlitos Chaparro MD History obtained from patient, family, and records. Medical history significant for hypertension, bladder cancer on Keytruda, right hydronephrosis status post percutaneous nephroureteral tube placement, prostate cancer status post radiation, CRI, DM 2 on oral medications, CRI (baseline creatinine 2,2), chronic anemia (baseline hemoglobin of 8), past alcohol abuse. 3 weeks ago, patient underwent IR guided right percutaneous nephro ureteral tube check and exchange at [facility]. Some flank discomfort and blood in the urine noted postprocedure. Yesterday, patient noted chills. Denies headache, chest pain, SOB. 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 Patient woke up on the bathroom floor and could not get up for a few hours. Denies Denies headache or chest pain. Usual shortness of breath on exertion. No abdominal pain. Patient constipated for days. No tongue biting or incontinence. Hotel staff checked on patient and brought him to the ER. Initial SBP at the ER 80s. IVF, vancomycin and Zosyn administered at the ER for sepsis. SBP currently 100s. 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 Allergies Allergy/AdvReac Type Severity Reaction Status Date / Time No Known Allergies Allergy Verified 07/27/22 21:21 Home Medications Medication Instructions Recorded Confirmed Type allopurinol 100 mg tablet 100 mg PO QAM 01/02/22 07/27/22 History atorvastatin 20 mg tablet 20 mg PO DAILY 01/02/22 07/27/22 History cinnamon bark 500 mg capsule 2,000 mg PO DAILY 01/02/22 07/27/22 History (Cinnamon) metformin 500 mg tablet,extended 500 mg PO DAILY 01/02/22 07/27/22 History release 24 hr omeprazole 20 mg capsule,delayed 20 mg PO DAILYBB 01/02/22 07/27/22 History release vitamin B complex 1 cap PO DAILY 01/02/22 07/27/22 History acetaminophen 500 mg tablet 1,000 mg PO TID PRN Pain 07/27/22 07/27/22 History (Tylenol Extra Strength) amlodipine 5 mg tablet 5 mg PO DAILY 07/27/22 07/27/22 History linagliptin 5 mg tablet (Tradjenta) 5 mg PO DAILY 07/27/22 07/27/22 History losartan 50 mg tablet 50 mg PO DAILY 07/27/22 07/27/22 History sodium chloride 0.9 % (flush) 10 ml intra-catheter DAILY 07/27/22 07/27/22 History thiamine HCl (vitamin B1) 50 mg 100 mg PO DAILY 07/27/22 07/27/22 History tablet Past Med/Surg History Medical History Bladder cancer Diabetes mellitus Dyslipidemia GERD (gastroesophageal reflux disease) HTN (hypertension) Surgical History S/P urological surgery Social History (Reviewed 01/30/22 @ 04:48 by CALVIN Frost Smoking Status: Unknown if ever smoked Hx Alcohol Use: No Hx Substance Use: No Preferred Language: Mohawk Communication Ability: Effective Landscape Architect Required: No Beliefs That Will Affect Care: None Current Living Situation: Alone Feels Safe at Home: Yes Safety Concerns: Feels Safe At This Time Assistive Devices: None Review of Systems Review of Systems: As per HPI, all other systems reviewed and negative Physical Exam Physical Exam: GENERAL: Slightly uncomfortable, ill-appearing, no respiratory distress SKIN: Pallor , warm HEENT: Pale palpebral conjunctivae, no ptosis, dry buccal mucosa NECK : Supple, no tenderness CHEST : Decreased breath sounds, no tenderness HEART : RRR, no obvious murmurs ABDOMEN: Some distention, nontender EXTREMITIES : No LE swelling/tenderness, no other conspicuous deformities noted NEUROLOGIC : Coherent, no facial asymmetry, gait and stance not assessed Results & Data Results & Data Vital Signs (Past 12 Hours) Vital Signs Temp Pulse Pulse Resp BP BP Pulse Ox 07/28/22 00:38 69 07/27/22 22:30 70 18 98 07/27/22 22:30 110/56 L 07/27/22 22:00 80 14 87 L 07/27/22 22:00 99/56 L 07/27/22 21:30 72 16 97 07/27/22 21:30 109/55 L 07/27/22 21:00 77 16 95 07/27/22 21:00 99/55 L 07/27/22 20:30 79 15 98 07/27/22 20:30 97/54 L 07/27/22 20:10 89 18 99 07/27/22 20:10 90 07/27/22 20:20 98 07/27/22 20:20 85 20 103/59 L 98 07/27/22 19:45 36.3 C L 103 H 18 82/57 L 98 O2 Del Method 07/28/22 00:38 07/27/22 22:30 07/27/22 22:30 07/27/22 22:00 07/27/22 22:00 07/27/22 21:30 07/27/22 21:30 07/27/22 21:00 07/27/22 21:00 07/27/22 20:30 07/27/22 20:30 07/27/22 20:10 07/27/22 20:10 07/27/22 20:20 Room Air 07/27/22 20:20 Room Air 07/27/22 19:45 Room Air Laboratory Results Laboratory Results WBC 35.13 K/ul (4.8-10.8) H* 07/27/22 20:08 RBC 3.43 M/uL (4.70-6.10) L 07/27/22 20:08 Hgb 6.3 g/dl (14.0-18.0) L* 07/27/22 22:35 Hct 20.2 % (42.0-52.0) L* 07/27/22 22:35 MCV 72.3 fL (80.0-100.0) L 07/27/22 20:08 MCH 23.0 pg (25.0-34.0) L 07/27/22 20:08 MCHC 31.9 g/dL (32.0-36.0) L 07/27/22 20:08 RDW Std Deviation 45.5 fL (36.4-46.3) 07/27/22 20:08 RDW Coeff of Krystal 17.4 % (11.5-14.5) H 07/27/22 20:08 Plt Count 423 K/uL (130-400) H 07/27/22 20:08 MPV 8.4 fL (9.4-12.4) L 07/27/22 20:08 Immature Gran % (Auto) 1.3 % 07/27/22 20:08 Neut % (Auto) 88.1 % 07/27/22 20:08 Lymph % (Auto) 7.2 % 07/27/22 20:08 [place] % (Auto) 3.0 % 07/27/22 20:08 Eos % (Auto) 0.0 % 07/27/22 20:08 Baso % (Auto) 0.4 % 07/27/22 20:08 Neut # (Auto) 30.95 K/uL (1.40-6.50) H 07/27/22 20:08 Lymph # (Auto) 2.53 K/uL (1.2-3.4) 07/27/22 20:08 [place] # (Auto) 1.04 K/uL (0.11-0.59) H 07/27/22 20:08 Eos # (Auto) 0.01 K/uL (0-0.50) 07/27/22 20:08 Baso # (Auto) 0.13 K/uL (0-0.2) 07/27/22 20:08 Immature Gran # (Auto) 0.47 K/uL (0.01-0.20) H 07/27/22 20:08 Hypochromasia Present 07/27/22 20:08 PT 11.9 Seconds (9.0-12.0) 07/27/22 20:08 INR 1.1 (0.9-1.1) 07/27/22 20:08 VBG pH 7.29 (7.36-7.41) L 07/27/22 22:35 VBG pCO2 36 mmHg (38-50) L 07/27/22 22:35 VBG pO2 22 mmHg 07/27/22 22:35 VBG HCO3 17 mmol/L 07/27/22 22:35 VBG O2 Saturation < 60.0 % 07/27/22 22:35 VBG Base Excess -8.5 mEq/L 07/27/22 22:35 Sodium 130 mmol/L (136-145) L 07/27/22 20:08 Potassium 3.7 mmol/L (3.5-5.1) 07/27/22 20:08 Chloride 100 mmol/L (98-107) 07/27/22 20:08 Carbon Dioxide 18 mmol/L (21-32) L 07/27/22 20:08 Anion Gap 12 (3-11) H 07/27/22 20:08 BUN 70 mg/dl (6-23) H 07/27/22 20:08 Creatinine 2.96 mg/dl (0.6-1.4) H 07/27/22 20:08 Est Cr Clr Drug Dosing 22.2 ml/min 07/27/22 20:08 Est GFR ( Amer) 23.2 ml/min 07/27/22 20:08 Est GFR (Non-Af Amer) 20.0 ml/min 07/27/22 20:08 BUN/Creatinine Ratio 23.6 (10-20) H 07/27/22 20:08 Glucose 273 mg/dl (70-99(Fasting)) H 07/27/22 20:08 Osmolality 304 mOsm/kg (280-300) H 07/27/22 20:08 Lactate 1.5 mmol/L (0.4-2.0) 07/27/22 20:08 Calcium 10.0 mg/dl (8.6-10.3) 07/27/22 20:08 Magnesium 1.6 mg/dl (1.7-2.4) L 07/27/22 22:35 Total Bilirubin 0.5 mg/dl (0.2-1.0) 07/27/22 20:08 AST 18 U/L (13-39) 07/27/22 20:08 ALT 11 U/L (7-52) 07/27/22 20:08 Alkaline Phosphatase 141 U/L (34-104) H 07/27/22 20:08 Ammonia 14.0 umol/L (18-72) L 07/27/22 22:35 Total Creatine Kinase 478 U/L (30-223) H 07/27/22 20:08 Troponin I High Sens 124.9 pg/ml (0-20) H* D 07/27/22 22:35 Total Protein 7.3 gm/dl (6.0-8.3) 07/27/22 20:08 Albumin 3.0 gm/dl (3.4-5.0) L 07/27/22 20:08 Globulin 4.3 gm/dl (2.5-4.0) H 07/27/22 20:08 Albumin/Globulin Ratio 0.7 (0.9-2) L 07/27/22 20:08 Lipase 24 U/L (11-82) 07/27/22 20:08 Procalcitonin 91.06 ng/ml (0-0.5) H 07/27/22 20:08 TSH 1.969 uIu/ml (0.300-4.500) 07/27/22 20:08 Urine Color [place] 07/27/22 21:18 Urine Appearance Turbid (Clear) A 07/27/22 21:18 Urine pH 5.0 (4.5-7.5) 07/27/22 21:18 Ur Specific [place] 1.016 (1.000-1.030) 07/27/22 21:18 Urine Protein 3+ (Negative) H 07/27/22 21:18 Urine Glucose (UA) Negative (Negative) 07/27/22 21:18 Urine Ketones Negative (Negative) 07/27/22 21:18 Urine Blood 3+ (Negative) H 07/27/22 21:18 Urine Nitrite Negative (Negative) 07/27/22 21:18 Urine Bilirubin Negative (Negative) 07/27/22 21:18 Urine Urobilinogen Negative (Negative) 07/27/22 21:18 Ur Leukocyte Esterase 3+ (Negative) H 07/27/22 21:18 Urine WBC (Auto) >30 /hpf (0-5) H 07/27/22 21:18 Urine RBC (Auto) 5-10 /hpf (0-4) H 07/27/22 21:18 U Hyaline Cast (Auto) 0 /lpf (0-5) 07/27/22 21:18 U Epithel Cells (Auto) >30 /lpf (0-5) H 07/27/22 21:18 Urine Bacteria (Auto) 2+ (Negative) H 07/27/22 21:18 Amorphous Sediment Present (None Prsent) A 07/27/22 21:18 Urine Yeast Not Reportable 07/27/22 21:18 Ethyl Alcohol mg/dL < 10.0 mg/dl (<10.0) 07/27/22 20:08 SARS-CoV-2 (PCR) NEGATIVE (Negative) 07/27/22 20:08 Influenza Type A (PCR) Negative (Neg) 07/27/22 20:08 Influenza Type B (PCR) Negative (Neg) 07/27/22 20:08 RSV (RT-PCR) Negative (Neg) 07/27/22 20:08 Blood Type A Negative 07/27/22 22:35 Antibody Screen NEGATIVE 07/27/22 22:35 Impressions Abdomen/Pelvis CT 07/27/22 20:15 CT OF THE ABDOMEN AND PELVIS WITHOUT CONTRAST CLINICAL HISTORY: Sepsis. Right nephrostomy tube in place. COMPARISON STUDY: No previous studies for comparison. TECHNIQUE: Axial images of the abdomen and pelvis were obtained without IV contrast. Images were reviewed in the axial, sagittal, and coronal planes. Automated exposure control was utilized for the study. A dose lowering technique was utilized adhering to the principles of ALARA. FINDINGS: Moderate cardiomegaly and a small pericardial effusion are noted. Evaluation of the abdomen and pelvis is suboptimal on this unenhanced examination. There is mild splenomegaly. A 8 mm lateral segment hepatic lesion favors a cyst. There are gallstones within the gallbladder. There is no evidence for acute cholecystitis. The adrenal glands and pancreas are unremarkable. There is no biliary or pancreatic ductal dilatation. There is no hydronephrosis. A percutaneous right nephroureterostomy catheter is in place. No ureteral calculi are identified. There is urothelial thickening of the left ureter. There is also urothelial thickening with mild stranding adjacent to the right ureter. Mass- like thickening of the anterior wall the bladder is noted. This measures appro ximately 4 cm. The remainder of the bladder wall is irregular and thickened as well. Brachytherapy seeds within the prostate are noted. There is soft tissue thickening and fluid adjacent to the prostate and the base of the bladder. This extends to the adjacent medial bilateral pubic bones with associated small bone erosions of the medial bilateral pubic bones. No pathologic fracture is identified. Note is made of moderate perirectal stranding. There are prominent perirectal lymph nodes. There is also stranding adjacent to the bladder and the prostate. Mild rectal wall thickening is noted. There is no evidence for a bowel obstruction. Colonic diverticulosis is present without evidence for acute diverticulitis. There are multiple mildly enlarged pelvic lymph nodes. Index left external iliac lymph node on image 305 of 425 measures 1.6 x 1.2 cm. Index right external iliac node measures 1.6 x 1.3 cm. IMPRESSION: 1. Right percutaneous nephroureterostomy catheter in place. No hydronephrosis. Urothelial thickening of the bilateral ureters which could be correlated with urinalysis to exclude an infectious process. No renal abscess. 2. Irregular mass-like thickening of the bladder wall, most pronounced anteriorly. This is suggestive of a urothelial neoplasm. 3. Soft tissue thickening and a small amount of associated fluid adjacent to the apex of the prostate. Associated subtle erosions of the medial bilateral pubic bones. These findings are nonspecific and may be neoplastic or infectious. 4. Multiple mildly enlarged pelvic lymph nodes, as described above. These may be reactive or neoplastic. 5. Pelvic infiltration, including perirectal stranding. This may be treatment related. A mild proctitis cannot be excluded. No extraluminal gas. 6. Small pericardial effusion. 7. Cholelithiasis. 8. No bowel obstruction. ACT 112: Negative or not required by law. Electronically signed by: Dylon Keene M.D. 07/27/2022 9:[address] 07/27/22 20:15 CT OF THE HEAD WITHOUT CONTRAST CLINICAL HISTORY: fall COMPARISON STUDY: No previous studies for comparison. TECHNIQUE: Helical axial images of the head were obtained without IV contrast. Automated exposure control was utilized for the study. A dose lowering technique was utilized adhering to the principles of ALARA. FINDINGS: No acute intracranial hemorrhage, midline shift or mass effect is present. The ventricular system is unremarkable. The basal cisterns are patent. No extra-axial collections are present. There are no findings to suggest acute dural sinus thrombosis or acute territorial infarct. No significant calvarial abnormalities are present. Visualized portions of the sinuses and mastoid air cells are clear. IMPRESSION: 1. No acute intracranial findings. 2. No acute calvarial fracture. ACT 112: Negative or not required by law. Electronically signed by: Dylon Keene M.D. 07/27/2022 8:54 PM Diagnostic Findings Chest x-ray as per my interpretation, cardiomegaly, atelectasis EKG as per my interpretation : Rate 90, NSR, normal axis, T wave abnormality septal leads
[2022-07-28] MEDS ORDERED: GLUCOSE 40% GEL 15 GM TUBE PO PRN (02:41)
[2022-07-28] MEDS ORDERED: CARBOHYDRATES FOR HYPOGLYCEMIA PO PRN (02:41)
[2022-07-28] MEDS ORDERED: GLUCAGON FOR INJ 1 MG VIAL SQ PRN (02:41)
[2022-07-28] MEDS ORDERED: ACETAMINOPHEN 325 MG TAB PO PRN (02:41)
[2022-07-28] MEDS ORDERED: DEXTROSE 50% 50 ML SYRINGE IV PRN (02:41)
[2022-07-28] MEDS ORDERED: GLUCOSE 10 TAB/TUBE PO PRN (02:41)
[2022-07-28] MEDS ORDERED: PROMETHAZINE HCL 6.25 MG in SODIUM CHLORIDE 0.9% 50 ML IV PRN (02:41)
[2022-07-28] MEDS: INSULIN ASPART PER UNIT CHARGE SC SCH ×5 (03:34→21:38)
[2022-07-28] MEDS: PANTOprazole 40 MG TAB PO SCH (05:52)
[2022-07-28 05:54] LABS: Base Excess VBG -8.2 mEq/L; HCO3 VBG 17 mmol/L; Oxygen Saturation VBG 86.2 %; PCO2 VBG 34 mmHg (38-50); PO2 VBG 53 mmHg; pH VBG 7.31 (7.36-7.41)
[2022-07-28] MEDS ORDERED: CEFEPIME 1,000 MG in SYRINGE 0 ML IV SCH (06:00)
[2022-07-28 06:11] LABS: Basophils % (auto) 0.5 %; Eosinophils # (auto) 0.15 K/uL (0-0.50); Eosinophils % (auto) 0.7 %; Hematocrit (blood only) 23.3 % (42.0-52.0); Hemoglobin 7.2 g/dl (14.0-18.0); Immature Granulocytes # (auto) 0.14 K/uL (0.01-0.20); Immature Granulocytes % (auto) 0.6 %; Lymphocytes # (auto) 2.38 K/uL (1.2-3.4); Lymphocytes % (auto) 10.9 %; Mean Corpuscular Hemoglobin 23.5 pg (25.0-34.0); Mean Corpuscular Hgb Conc 30.9 g/dL (32.0-36.0); Mean Corpuscular Volume 75.9 fL (80.0-100.0); Mean Platelet Volume 8.3 fL (9.4-12.4); Monocytes # (auto) 1.06 K/uL (0.11-0.59); Monocytes % (auto) 4.8 %; Neutrophils # (auto) 18.06 K/uL (1.40-6.50); Neutrophils % (auto) 82.5 %; Platelet Count 293 K/uL (130-400); RDW Coefficient of Variation 18.5 % (11.5-14.5); RDW Standard Deviation 50.3 fL (36.4-46.3); Red Blood Count 3.07 M/uL (4.70-6.10); White Blood Count 21.89 K/ul (4.8-10.8)
[2022-07-28 06:24] LABS: BUN Creatinine Ratio 26.2 (10-20); Calcium 8.4 mg/dl (8.6-10.3); Creatinine Clr Calc Pharmacy 24.5 ml/min; Est GFR (African American) 27.1 ml/min; Est GFR (Non-African American) 23.4 ml/min; Potassium 3.7 mmol/L (3.5-5.1)
[2022-07-28 06:37] LABS: Echinocytes 1+
[2022-07-28] MEDS ORDERED: VANCOMYCIN CONSULT ACTIVE PRN (06:56)
[2022-07-28] MEDS ORDERED: LACTULOSE SYRUP 30 GM/45 ML UDP PO STA (07:09)
--- NOTE | 2022-07-28 07:09 | XRay Report ---
XR chest 1V portable HISTORY: 71 years-old Male renal failure acute shortest breath with renal failure COMPARISON: CT abdomen and pelvis of same day TECHNIQUE: AP view of the chest. FINDINGS: Cardiac silhouette is enlarged. No pneumothorax, pleural effusion or overt pulmonary edema. Mild retr ocardiac left basilar opacities. Degenerative changes of the shoulders and spine. IMPRESSION: 1. Cardiomegaly without acute process. 2. Mild retrocardiac atelectasis. ACT 112: Negative or not required by law. The above report was generated using voice recognition software. It may contain grammatical, syntax o r spelling errors. Electronically signed by: Jae Zabala M.D. 07/28/2022 7:08 AM
[2022-07-28] MEDS: DOCUSATE SODIUM/SENNA 50/8.6MG TAB PO SCH (07:33)
[2022-07-28] MEDS: VITAMIN B COMPLEX TAB PO SCH (07:33)
[2022-07-28] MEDS: THIAMINE HCL 100 MG TAB PO SCH (07:34)
[2022-07-28] MEDS: allopurinoL 100 MG TAB PO SCH (07:34)
[2022-07-28] MEDS ORDERED: DAPTOmycin 425 MG in SYRINGE 0 ML IV SCH (08:00)
[2022-07-28] MEDS ORDERED: VANCOMYCIN HCL 750 MG in SODIUM CHLORIDE 0.9% 250 ML IV SCH (09:30)
--- NOTE | 2022-07-28 09:58 | Pharmacy Report ---
Pharmacy PK ABX Note - Date of Service July 28, 2022 - Assessment and Plan Assessment * 71 year old M admitted last night for Sepsis and complicated UTI. He has history of bladder cancer, CKD and Type 2 diabetes. Has nephrostomy tubes. * Around 3 weeks ago he underwent nephrostomy tube check procedure at [facility]. * Last night he was started on Vancomycin and Zosyn for treatment of Sepsis with complicated UTI/proctitis. * Blood and Urine cultures pending. Serum creatinine elevated. * Today is day 2 of antimicrobial therapy. Plan Vancomycin * Loading dose: 1500 mg (20 mg/kg) IV x 1 given last night ~22:00 * S.creatinine is elevated 2.96 mg/dl yesterday and 2.6 mg/dl today. CrCl = 24.5 ml/min today. * Since renal function is poor and not stable at this time, will utilize Vancomycin dosing based on levels. * Vancomycin 750 mg IV x1 ordered for this AM. Random Vancomycin level ordered with AM labs tomorrow. * Will assess the level tomorrow before re-dosing. Plan to re-dose if level is below 20 mcg/ml. Pharmacy will continue to follow and will adjust dose/frequency as necessary. Thank you. Pharmacy has transitioned to AUC monitoring for vancomycin. AUC/JUAN is the preferred PK/PD target and is associated with decreased risk of nephrotoxicity compared to traditional trough targets.
[2022-07-28 11:16] LABS: A calco-baum cmplx NotReported Not Detected (NotDetected); Bact fragilis Not Reported Not Detected (NotDetected); C auris Not Reported Not Detected (NotDetected); CTX-M Resistant Gene Not Detected (NotDetected); Calbicans Not Reported Not Detected (NotDetected); Candida glabrata Not Reported Not Detected (NotDetected); Candida krusei Not Reported Not Detected (NotDetected); Cneoformans/gatti Not Reported Not Detected (NotDetected); Cparapsilosis Not Reported Not Detected (NotDetected); Ctropicalis Not Reported Not Detected (NotDetected); E cloacae compx Not Reported Not Detected (NotDetected); Efaecalis Not Reported Not Detected (NotDetected); Efaecium Not Reported Not Detected (NotDetected); Enterobacterales Not Reported DETECTED (NotDetected); Escherichia coli Not Reported Not Detected (NotDetected); H influenzae Not Reported Not Detected (NotDetected); IMP Resistant Gene Not Detected (NotDetected); K aerogenes Not Reported Not Detected (NotDetected); KPC Resistant Gene Not Detected (NotDetected); Koxytoca Not Reported Not Detected (NotDetected); Kpneumoniae grp Not Reported DETECTED (NotDetected); Lmonocyt Not Reported Not Detected (NotDetected); N meningitidis Not Reported Not Detected (NotDetected); NDM Resistant Gene Not Detected (NotDetected); OXA 48 Like Resistant Gene Not Detected (NotDetected); P aeruginosa Not Reported Not Detected (NotDetected); Proteus spp Not Reported Not Detected (NotDetected); Salmonella spp Not Reported Not Detected (NotDetected); Smarcescens Not Reported Not Detected (NotDetected); Staph lugdunensis Not Reported Not Detected (NotDetected); Staph spp. Not Reported Not Detected (NotDetected); Staphaureus Not Reported Not Detected (NotDetected); Staphepi Not Reported Not Detected (NotDetected); Stenmaltophilia Not Reported Not Detected (NotDetected); Strep agal(GrpB) Not Reported Not Detected (NotDetected); Strep pneum Not Reported Not Detected (NotDetected); Strep pyog (GrpA) Not Reported Not Detected (NotDetected); Strep spp Not Reported Not Detected (NotDetected); VIM Resistant Gene Not Detected (NotDetected); mcr-1 Colistin Resistant Gene Not Detected (NotDetected)
[2022-07-28 11:23] LABS: Enterobacterales DETECTED (NotDetected); Klebsiella pneumoniae group DETECTED (NotDetected)
[2022-07-28 12:18] LABS: Hematocrit (blood only) 25.3 % (42.0-52.0); Hemoglobin 7.8 g/dl (14.0-18.0)
[2022-07-28] MEDS: LACTATED RINGER'S 1,000 ML IV SCH (12:35)
[2022-07-28] MEDS: PIPERACILLIN/TAZOBACTAM 4.5 GM in DEXTROSE 5% 100 ML IV SCH ×2 (12:36→20:37)
--- NOTE | 2022-07-28 14:33 | Hospitalist Progress Note ---
Date of Service July 28, 2022 Assessment & Plan (1) Severe sepsis: Plan: SIRS plus ARF on CKD Secondary to complicated UTI/proctitis hx bladder cancer on Keytruda, right hydronephrosis status post percutaneous nephroureteral tube placement Has been started on intravenous Zosyn and vancomycin Blood culture 1 out of 2 bottles and urine culture growing gram-negative bacilli-await further identification and sensitivity Patient has been feeling better We will get ID consult Continue with Zosyn and vancomycin for now Syncope likely secondary to orthostasis given hypotension upon arrival at the ER Has had fever the day before Extremely weak in the bathroom and difficulty to get up following the fall Likely secondary to sepsis and hypotension Rule out cardiac dysfunction -doubt any cardiac dysfunction Troponin elevation secondary to illness Bladder cancer Status post right percutaneous nephrostomy tube about 3 weeks ago Has been on Keytruda every 3 weeks and the next dose is on Oncologist Dr. Weiss hx prostate cancer status post radiation DM 2 on oral medications, reasonable control as of recent hemoglobin A1c of 7.6 last June 2022 Continue with SSI-Basal bolus insulin, ISS BG goal 1 10-1 40, carb count coverage past tobacco/alcohol abuse AGMA secondary to kidney dysfunction Rhabdomyolysis secondary to immobility following fall Acute on chronic anemia secondary to bleed Received 1 unit of blood transfusion Hemoglobin remains more than 7 Anemia work-up, transfuse PRBC if hemoglobin less than 7 and or from symptomatic anemia Will monitor DVT prophylaxis. SCDs Re: bleed Full code Patient requesting updates from providers. Ms. Lisa Robert, contact #[phone]. Admission and Anticipated Discharge Date Admission Date: July 28, 2022 Subjective 07/28/2022 The patient was seen and examined in telemetry unit History of CVA of the bladder and recent right percutaneous nephrostomy tube placement 3 weeks ago Was admitted with fall in the bathroom and generally weak to get up with the history of chills the day before Has been feeling much better since admission Review of Systems Review of Systems: All systems reviewed and are unremarkable except as noted below Physical Exam Physical Exam: Lying in bed comfortably Constitutional: + ill appearing and average body habitus Eyes: PERRL, conjunctivae normal, anicteric sclerae ENMT: external ear and nose normal, oropharynx normal Respiratory: no respiratory distress Auscultation: lungs clear to auscultation bilaterally Cardiovascular: Rate/Rhythm: regular rate and regular rhythm; not tachycardic Heart Sounds: normal S1, normal S2 and + murmur Extremities: no edema Gastrointestinal (Abdomen): Inspection/Auscultation: normal bowel sounds; abdomen not distended Percussion/Palpation: abdomen soft; abdomen nontender Right renal angle slightly tender Musculoskeletal: No acute arthritis involving any of the joint Neurologic: Alert, awake and oriented x3. No focal sensory or no motor deficit appreciated Psychiatric: A+Ox3, euthymic affect Lymphatic: no cervical or axillary lymphadenopathy Results & Data Results & Data Vital Signs (Past 12 Hours) Vital Signs Temp Pulse Pulse Resp BP BP Pulse Ox 07/28/22 11:37 36.4 C L 77 18 117/63 98 07/28/22 07:32 36.3 C L 71 20 104/45 L 99 07/28/22 06:10 36.4 C L 07/28/22 03:00 69 22 109/63 96 07/28/22 03:46 35 C L 70 16 102/60 98 07/28/22 03:17 68 07/28/22 02:45 35 C L 66 16 104/59 L 95 07/28/22 02:43 34.7 C L 72 18 110/59 L 99 O2 Del Method 07/28/22 11:37 Room Air 07/28/22 07:32 Room Air 07/28/22 06:10 07/28/22 03:00 Room Air 07/28/22 03:46 07/28/22 03:17 07/28/22 02:45 07/28/22 02:43 Room Air Laboratory Results Short CBC 07/27/22 07/27/22 07/28/22 Range/Units 20:08 22:35 05:19 WBC 35.13 H* 21.89 H (4.8-10.8) K/ul Hgb 7.9 L 6.3 L* 7.2 L (14.0-18.0) g/dl Hct 24.8 L 20.2 L* 23.3 L (42.0-52.0) % Plt Count 423 H 293 (130-400) K/uL 07/28/22 Range/Units 11:45 WBC (4.8-10.8) K/ul Hgb 7.8 L (14.0-18.0) g/dl Hct 25.3 L (42.0-52.0) % Plt Count (130-400) K/uL BMP 07/27/22 07/28/22 20:08 05:19 Sodium 130 L 135 L Potassium 3.7 3.7 Chloride 100 109 H Carbon Dioxide 18 L 17 L BUN 70 H 68 H Creatinine 2.96 H 2.60 H D Glucose 273 H 124 H Calcium 10.0 8.4 L Cardiac Enzymes 07/27/22 07/28/22 Range/Units 20:08 05:19 Total Creatine Kinase 478 H 520 H (30-223) U/L Liver Function 07/27/22 Range/Units 20:08 Total Bilirubin 0.5 (0.2-1.0) mg/dl AST 18 (13-39) U/L ALT 11 (7-52) U/L Alkaline Phosphatase 141 H (34-104) U/L Albumin 3.0 L (3.4-5.0) gm/dl Urine 07/27/22 Range/Units 21:18 Urine Color [place] Urine Appearance Turbid A (Clear) Urine pH 5.0 (4.5-7.5) Ur Specific [place] 1.016 (1.000-1.030) Urine Protein 3+ H (Negative) Urine Glucose (UA) Negative (Negative) Medications Administered Current Inpatient Medications Acetaminophen (Acetaminophen 325 Mg Tab) 650 mg PO Q4H PRN PRN Reason: Pain or Fever Stop: 08/27/22 02:40 Allopurinol ([facility]ol 100 Mg Tab) [facility] [place] Stop: 08/27/22 08:59 Last Admin: 07/28/22 07:34 Dose: 100 mg Dextrose (Dextrose 50% 50 Ml Syringe) 25 - 50 ml IV UD PRN; Protocol PRN Reason: Hypoglycemia Protocol Stop: 08/27/22 02:40 Glucagon (Glucagon For Inj 1 Mg Vial) 1 mg SQ UD PRN; Protocol PRN Reason: Hypoglycemia Protocol Stop: 08/27/22 02:40 Glucose (Glucose 10 Tab/Tube) 4 - 8 tab PO UD PRN; Protocol PRN Reason: Hypoglycemia Treatment Stop: 08/27/22 02:40 Glucose (Glucose 40% Gel 15 Gm Tube) 15 - 30 gm PO UD PRN; Protocol PRN Reason: Hypoglycemia Protocol Stop: 08/27/22 02:40 Promethazine HCl 6.25 mg/ (Sodium Chloride) 50.25 mls @ 201 mls/hr IV Q6H PRN PRN Reason: Nausea And Vomiting Stop: 08/27/22 02:40 Lactated Ringer's (Lr) 1,000 mls @ 80 mls/hr IV .[id number] [facility] Stop: 07/29/22 11:59 Last Admin: 07/28/22 12:35 Dose: 80 mls/hr Piperacillin Sod/Tazobactam (Sod 4.5 gm/ Dextrose) 120 mls @ 30 mls/hr IV Q8H [facility]; Protocol Stop: 08/07/22 11:59 Last Admin: 07/28/22 12:36 Dose: 30 mls/hr Insulin Aspart (Insulin Aspart Per Unit Charge) 0 units SC ACHS [facility] Stop: 08/27/22 03:29 Last Admin: 07/28/22 12:35 Dose: 2 units Miscellaneous (Carbohydrates For Hypoglycemia ) 15 - 30 gm PO UD PRN PRN Reason: Hypoglycemia Protocol Stop: 08/27/22 02:40 Miscellaneous Information (Vancomycin Consult Active) 1 each N/A UD PRN PRN Reason: Consult Stop: 08/27/22 06:55 Oxycodone HCl (Oxycodone Hcl Ir 5 Mg Tab (Immediate Release)) 5 mg PO Q4H PRN PRN Reason: Pain Stop: 08/11/22 02:40 Pantoprazole Sodium (Pantoprazole 40 Mg Tab) 40 mg PO DAILYBB [facility] Stop: 08/27/22 06:29 Last Admin: 07/28/22 05:52 Dose: 40 mg Senna/Docusate Sodium (Docusate Sodium/Senna 50/8.6mg Tab) 1 tab PO QAM [facility] Stop: 08/27/22 07:09 Last Admin: 07/28/22 07:33 Dose: 1 tab Thiamine HCl (Thiamine Hcl 100 Mg Tab) 100 mg PO DAILY [facility] Stop: 08/27/22 08:59 Last Admin: 07/28/22 07:34 Dose: 100 mg Vitamin B Complex (Vitamin B Complex Tab) 1 tab PO DAILY [facility] Stop: 08/27/22 08:59 Last Admin: 07/28/22 07:33 Dose: 1 tab
--- NOTE | 2022-07-29 00:26 | Electrocardiogram Report ---
Test Reason : Blood Pressure : / mmHG Vent. Rate : 091 BPM Atrial Rate : 091 BPM P-R Int : 142 ms QRS Dur : 080 ms QT Int : 382 ms P-R-T Axes : 045 018 034 degrees QTc Int : 469 ms Normal sinus rhythm ST elevation, consider early repolarization, pericarditis, or injury When compared with ECG of 04-MAY-2004 16:42, ST elevation is now present in inferolateral leads Confirmed by Jassi Doherty ([id number]) on 07/29/2022 12:25:58 AM Referred By: REFERRED SELF Confirmed By:Jassi Doherty
[2022-07-29] MEDS: PIPERACILLIN/TAZOBACTAM 4.5 GM in DEXTROSE 5% 100 ML IV SCH ×3 (04:57→20:39)
[2022-07-29] MEDS: LACTATED RINGER'S 1,000 ML IV SCH (05:00)
[2022-07-29 06:01] LABS: Hematocrit (blood only) 25.4 % (42.0-52.0); Hemoglobin 7.8 g/dl (14.0-18.0); Mean Corpuscular Hemoglobin 23.4 pg (25.0-34.0); Mean Corpuscular Hgb Conc 30.7 g/dL (32.0-36.0); Mean Corpuscular Volume 76.3 fL (80.0-100.0); Mean Platelet Volume 8.1 fL (9.4-12.4); Platelet Count 363 K/uL (130-400); RDW Coefficient of Variation 18.6 % (11.5-14.5); RDW Standard Deviation 50.7 fL (36.4-46.3); Red Blood Count 3.33 M/uL (4.70-6.10); White Blood Count 25.98 K/ul (4.8-10.8)
[2022-07-29 06:11] LABS: Albumin Globulin Ratio 0.7 (0.9-2); Albumin Level 2.6 gm/dl (3.4-5.0); BUN Creatinine Ratio 22.1 (10-20); Bilirubin,Total 0.4 mg/dl (0.2-1.0); Calcium 9.3 mg/dl (8.6-10.3); Creatinine Clr Calc Pharmacy 24.2 ml/min; Est GFR (African American) 26.8 ml/min; Est GFR (Non-African American) 23.1 ml/min; Globulin 3.7 gm/dl (2.5-4.0); Magnesium 1.9 mg/dl (1.7-2.4); Potassium 3.7 mmol/L (3.5-5.1); Total Protein 6.3 gm/dl (6.0-8.3)
[2022-07-29 06:25] LABS: Acanthocytes 2+; Basophils # (auto) 0.16 K/uL (0-0.2); Basophils % (auto) 0.6 %; Eosinophils # (auto) 0.32 K/uL (0-0.50); Eosinophils % (auto) 1.2 %; Immature Granulocytes # (auto) 0.21 K/uL (0.01-0.20); Immature Granulocytes % (auto) 0.8 %; Lymphocytes # (auto) 2.24 K/uL (1.2-3.4); Lymphocytes % (auto) 8.6 %; Monocytes # (auto) 1.07 K/uL (0.11-0.59); Monocytes % (auto) 4.1 %; Neutrophils # (auto) 21.98 K/uL (1.40-6.50); Neutrophils % (auto) 84.7 %; Polychromasia 1+
[2022-07-29] MEDS: PANTOprazole 40 MG TAB PO SCH (06:28)
[2022-07-29] MEDS: INSULIN ASPART PER UNIT CHARGE SC SCH ×4 (08:16→20:28)
[2022-07-29] MEDS: THIAMINE HCL 100 MG TAB PO SCH (08:45)
[2022-07-29] MEDS: DOCUSATE SODIUM/SENNA 50/8.6MG TAB PO SCH (08:45)
[2022-07-29] MEDS: allopurinoL 100 MG TAB PO SCH (08:45)
[2022-07-29] MEDS: VITAMIN B COMPLEX TAB PO SCH (08:45)
--- NOTE | 2022-07-29 11:33 | Hospitalist Progress Note ---
Date of Service July 29, 2022 Assessment & Plan (1) Severe sepsis: Plan: SIRS plus ARF on CKD Secondary to complicated UTI/proctitis hx bladder cancer on Keytruda, right hydronephrosis status post percutaneous nephroureteral tube placement Has been started on intravenous Zosyn and vancomycin Blood culture 1 out of 2 bottles and urine culture growing gram-negative bacilli-await further identification and sensitivity Patient has been feeling better We will get ID consult Continue with Zosyn and vancomycin for now Urine culture is growing Klebsiella pneumoniae which is more or less pansensitive Blood culture is growing gram-negative bacilli and further identification is pending We will continue Vanco and Zosyn for now until final blood cultures are back Discussed with Dr. Yang-we will let him know about final culture and decide on antibiotic Patient will have appointment with the urologist as an outpatient sooner than later following discharge Syncope likely secondary to orthostasis given hypotension upon arrival at the ER Has had fever the day before Extremely weak in the bathroom and difficulty to get up following the fall Likely secondary to sepsis and hypotension Rule out cardiac dysfunction -doubt any cardiac dysfunction Troponin elevation secondary to illness No cardiac issues Bladder cancer Status post right percutaneous nephrostomy tube about 3 weeks ago Has been on Keytruda every 3 weeks and the next dose is on Oncologist Dr. Weiss-Will inform Dr. Weiss about hospitalization and infection hx prostate cancer status post radiation DM 2 on oral medications, reasonable control as of recent hemoglobin A1c of 7.6 last June 2022 Continue with SSI-Basal bolus insulin, ISS BG goal 1 10-1 40, carb count coverage past tobacco/alcohol abuse AGMA secondary to kidney dysfunction Rhabdomyolysis secondary to immobility following fall Acute on chronic anemia secondary to bleed Received 1 unit of blood transfusion Hemoglobin remains more than 7 Anemia work-up, transfuse PRBC if hemoglobin less than 7 and or from symptomatic anemia Will monitor DVT prophylaxis. SCDs Re: bleed Full code Patient requesting updates from providers. Vira Lisa Robert, contact #[phone]. Admission and Anticipated Discharge Date Admission Date: July 28, 2022 Subjective 07/28/2022 The patient was seen and examined in telemetry unit History of carcinoma of the bladder and recent right percutaneous nephrostomy tube placement 3 weeks ago Was admitted with fall in the bathroom and generally weak to get up with the history of chills the day before Has been feeling much better since admission 07/29/2022 The patient was seen and examined in telemetry unit He has been feeling much better and denies any fever and or chills No abdominal pain, nausea and or vomiting Has had partial ID consult yesterday due to loss of connection Review of Systems Review of Systems: All systems reviewed and are unremarkable except as noted below Physical Exam Physical Exam: Lying in bed comfortably Constitutional: + ill appearing and average body habitus Eyes: PERRL, conjunctivae normal, anicteric sclerae ENMT: external ear and nose normal, oropharynx normal Respiratory: no respiratory distress Auscultation: lungs clear to auscultation bilaterally Cardiovascular: Rate/Rhythm: regular rate and regular rhythm; not tachycardic Heart Sounds: normal S1, normal S2 and + murmur Extremities: no edema Gastrointestinal (Abdomen): Inspection/Auscultation: normal bowel sounds; abdomen not distended Percussion/Palpation: abdomen soft; abdomen nontender Psychiatric: A+Ox3, euthymic affect Lymphatic: no cervical or axillary lymphadenopathy Results & Data Results & Data Vital Signs (Past 12 Hours) Vital Signs Temp Pulse Pulse Resp BP BP Pulse Ox 07/29/22 07:00 79 07/29/22 07:20 36.7 C 82 19 148/71 H 97 07/29/22 03:59 36.9 C 89 18 140/75 97 O2 Del Method 07/29/22 07:00 07/29/22 07:20 Room Air 07/29/22 03:59 Room Air Laboratory Results Short CBC 07/28/22 07/29/22 Range/Units 11:45 05:35 WBC 25.98 H (4.8-10.8) K/ul Hgb 7.8 L 7.8 L (14.0-18.0) g/dl Hct 25.3 L 25.4 L (42.0-52.0) % Plt Count 363 (130-400) K/uL BMP 07/29/22 05:35 Sodium 133 L Potassium 3.7 Chloride 107 Carbon Dioxide 17 L BUN 58 H Creatinine 2.63 H Glucose 126 H Calcium 9.3 Liver Function 07/29/22 Range/Units 05:35 Total Bilirubin 0.4 (0.2-1.0) mg/dl AST 20 (13-39) U/L ALT 14 (7-52) U/L Alkaline Phosphatase 90 (34-104) U/L Albumin 2.6 L (3.4-5.0) gm/dl Medications Administered Current Inpatient Medications Acetaminophen (Acetaminophen 325 Mg Tab) 650 mg PO Q4H PRN PRN Reason: Pain or Fever Stop: 08/27/22 02:40 Allopurinol (Allopurinol 100 Mg Tab) 100 mg PO QAM [facility] Stop: 08/27/22 08:59 Last Admin: 07/29/22 08:45 Dose: 100 mg Dextrose (Dextrose 50% 50 Ml Syringe) 25 - 50 ml IV UD PRN; Protocol PRN Reason: Hypoglycemia Protocol Stop: 08/27/22 02:40 Glucagon (Glucagon For Inj 1 Mg Vial) 1 mg SQ UD PRN; Protocol PRN Reason: Hypoglycemia Protocol Stop: 08/27/22 02:40 Glucose (Glucose 10 Tab/Tube) 4 - 8 tab PO UD PRN; Protocol PRN Reason: Hypoglycemia Treatment Stop: 08/27/22 02:40 Glucose (Glucose 40% Gel 15 Gm Tube) 15 - 30 gm PO UD PRN; Protocol PRN Reason: Hypoglycemia Protocol Stop: 08/27/22 02:40 Promethazine HCl 6.25 mg/ (Sodium Chloride) 50.25 mls @ 201 mls/hr IV Q6H PRN PRN Reason: Nausea And Vomiting Stop: 08/27/22 02:40 Lactated Ringer's (Lr) 1,000 mls @ 80 mls/hr IV .[id number] [facility] Stop: 07/29/22 11:59 Last Admin: 07/29/22 05:00 Dose: 80 mls/hr Piperacillin Sod/Tazobactam (Sod 4.5 gm/ Dextrose) 120 mls @ 30 mls/hr IV Q8H [facility]; Protocol Stop: 08/07/22 11:59 Last Infusion: 07/29/22 09:09 Dose: Infused Insulin Aspart ([facility] Per Unit Charge) [facility]: 08/27/22 03:29 Last Admin: 07/29/22 08:16 Dose: Not Given Miscellaneous (Carbohydrates For Hypoglycemia ) 15 - 30 gm PO UD PRN PRN Reason: Hypoglycemia Protocol Stop: 08/27/22 02:40 Oxycodone HCl (Oxycodone Hcl Ir 5 Mg Tab (Immediate Release)) 5 mg PO Q4H PRN PRN Reason: Pain Stop: 08/11/22 02:40 Pantoprazole Sodium (Pantoprazole 40 Mg Tab) 40 mg PO DAILYBB [facility] Stop: 08/27/22 06:29 Last Admin: 07/29/22 06:28 Dose: 40 mg Senna/Docusate Sodium (Docusate Sodium/Senna 50/8.6mg Tab) 1 tab PO QAM [facility] Stop: 08/27/22 07:09 Last Admin: 07/29/22 08:45 Dose: Not Given Thiamine HCl (Thiamine Hcl 100 Mg Tab) 100 mg PO DAILY [facility] Stop: 08/27/22 08:59 Last Admin: 07/29/22 08:45 Dose: 100 mg Vitamin B Complex (Vitamin B Complex Tab) 1 tab PO DAILY [facility] Stop: 08/27/22 08:59 Last Admin: 07/29/22 08:45 Dose: 1 tab
[2022-07-30] MEDS: PIPERACILLIN/TAZOBACTAM 4.5 GM in DEXTROSE 5% 100 ML IV SCH ×3 (04:21→20:46)
[2022-07-30] MEDS: PANTOprazole 40 MG TAB PO SCH (05:53)
[2022-07-30 06:54] LABS: Hematocrit (blood only) 24.9 % (42.0-52.0); Hemoglobin 7.7 g/dl (14.0-18.0); Mean Corpuscular Hemoglobin 23.4 pg (25.0-34.0); Mean Corpuscular Hgb Conc 30.9 g/dL (32.0-36.0); Mean Corpuscular Volume 75.7 fL (80.0-100.0); Mean Platelet Volume 8.5 fL (9.4-12.4); Platelet Count 380 K/uL (130-400); RDW Standard Deviation 52.4 fL (36.4-46.3); Red Blood Count 3.29 M/uL (4.70-6.10); White Blood Count 24.69 K/ul (4.8-10.8)
[2022-07-30 07:23] LABS: BUN Creatinine Ratio 18.6 (10-20); Calcium 9.1 mg/dl (8.6-10.3); Creatinine Clr Calc Pharmacy 22.3 ml/min; Est GFR (African American) 24.3 ml/min; Potassium 4.6 mmol/L (3.5-5.1)
[2022-07-30 07:34] LABS: Basophils # (auto) 0.12 K/uL (0-0.2); Basophils % (auto) 0.5 %; Eosinophils # (auto) 0.31 K/uL (0-0.50); Eosinophils % (auto) 1.3 %; Immature Granulocytes # (auto) 0.18 K/uL (0.01-0.20); Immature Granulocytes % (auto) 0.7 %; Lymphocytes # (auto) 2.43 K/uL (1.2-3.4); Lymphocytes % (auto) 9.8 %; Monocytes # (auto) 1.23 K/uL (0.11-0.59); Neutrophils # (auto) 20.42 K/uL (1.40-6.50); Neutrophils % (auto) 82.7 %; Polychromasia 1+; Tear Drop Cells 1+
[2022-07-30] MEDS: INSULIN ASPART PER UNIT CHARGE SC SCH ×4 (08:52→20:46)
[2022-07-30] MEDS: DOCUSATE SODIUM/SENNA 50/8.6MG TAB PO SCH (08:53)
[2022-07-30] MEDS: VITAMIN B COMPLEX TAB PO SCH (08:54)
[2022-07-30] MEDS: allopurinoL 100 MG TAB PO SCH (08:54)
[2022-07-30] MEDS: THIAMINE HCL 100 MG TAB PO SCH (08:54)
--- NOTE | 2022-07-30 13:07 | Hospitalist Progress Note ---
Date of Service July 30, 2022 Assessment & Plan (1) Severe sepsis: Plan: SIRS plus ARF on CKD Secondary to complicated UTI/proctitis hx bladder cancer on Keytruda, right hydronephrosis status post percutaneous nephroureteral tube placement Has been started on intravenous Zosyn and vancomycin Blood culture 1 out of 2 bottles and urine culture growing gram-negative bacilli-await further identification and sensitivity Patient has been feeling better We will get ID consult Continue with Zosyn and vancomycin for now Urine culture is growing Klebsiella pneumoniae which is more or less pansensitive Blood culture is growing gram-negative bacilli and further identification is pending We will continue Vanco and Zosyn for now until final blood cultures are back Discussed with Dr. Yang-we will let him know about final culture and decide on antibiotic Patient will have appointment with the urologist as an outpatient sooner than later following discharge White count remains elevated at 24,000. No fever and no chills and the patient has been getting better Blood culture 1 out of 2 bottle gram-negative bacilli and further identification is pending, urine culture and 1 out of 2 blood cultures positive for Klebsiella pneumoniae which seems to pansensitive Will await further identification of the culture and sensitivity We will get PT and OT evaluation for discharge tomorrow Syncope likely secondary to orthostasis given hypotension upon arrival at the ER Has had fever the day before Extremely weak in the bathroom and difficulty to get up following the fall Likely secondary to sepsis and hypotension Rule out cardiac dysfunction -doubt any cardiac dysfunction Troponin elevation secondary to illness No cardiac issues Echo of the heart showed-EF of 60 to 65%, moderate concentric LVH, mild mitral regurgitation, there is mild tricuspid regurgitation, Doppler findings do not suggest pulmonary hypertension, small circumferential pericardial effusion there are no echocardiographic indications of cardiac tamponade Bladder cancer Status post right percutaneous nephrostomy tube about 3 weeks ago Has been on Keytruda every 3 weeks and the next dose is on Oncologist Dr. Weiss-Will inform Dr. Weiss about hospitalization and infection hx prostate cancer status post radiation DM 2 on oral medications, reasonable control as of recent hemoglobin A1c of 7.6 last June 2022 Continue with SSI-Basal bolus insulin, ISS BG goal 1 10-1 40, carb count coverage past tobacco/alcohol abuse AGMA secondary to kidney dysfunction Rhabdomyolysis secondary to immobility following fall Acute on chronic anemia secondary to bleed Received 1 unit of blood transfusion Hemoglobin remains more than 7 Anemia work-up, transfuse PRBC if hemoglobin less than 7 and or from symptomatic anemia Will monitor DVT prophylaxis. SCDs Re: bleed Full code Patient requesting updates from providers. Ms. Lisa Robert, contact #[phone]. We will get PT and OT evaluation and possible discharge tomorrow or day after Admission and Anticipated Discharge Date Admission Date: July 28, 2022 Subjective 07/28/2022 The patient was seen and examined in telemetry unit History of carcinoma of the bladder and recent right percutaneous nephrostomy tube placement 3 weeks ago Was admitted with fall in the bathroom and generally weak to get up with the history of chills the day before Has been feeling much better since admission 07/29/2022 The patient was seen and examined in telemetry unit He has been feeling much better and denies any fever and or chills No abdominal pain, nausea and or vomiting Has had partial ID consult yesterday due to loss of connection 07/30/2022 The patient was seen and examined in telemetry unit He has been stable without any acute symptoms No fever and no chills, no abdominal pain and no nausea and/or vomiting Review of Systems Review of Systems: All systems reviewed and are unremarkable except as noted below Physical Exam Physical Exam: Lying in bed comfortably Constitutional: + ill appearing and average body habitus Eyes: PERRL, conjunctivae normal, anicteric sclerae ENMT: external ear and nose normal, oropharynx normal Respiratory: no respiratory distress Auscultation: lungs clear to auscultation bilaterally Cardiovascular: Rate/Rhythm: regular rate and regular rhythm; not tachycardic Heart Sounds: normal S1, normal S2 and + murmur Extremities: no edema Gastrointestinal (Abdomen): Inspection/Auscultation: normal bowel sounds; abdomen not distended Percussion/Palpation: abdomen soft; abdomen nontender Psychiatric: A+Ox3, euthymic affect Lymphatic: no cervical or axillary lymphadenopathy Results & Data Results & Data Vital Signs (Past 12 Hours) Vital Signs Temp Pulse Pulse Resp BP Pulse Ox O2 Del Method 07/30/22 11:21 37.1 C 82 19 137/67 97 Room Air 07/30/22 07:00 80 07/30/22 07:29 37.0 C 79 19 137/67 98 Room Air 07/30/22 03:45 36.9 C 87 17 146/69 H 96 Room Air Laboratory Results Short CBC 07/30/22 Range/Units 05:36 WBC 24.69 H (4.8-10.8) K/ul Hgb 7.7 L (14.0-18.0) g/dl Hct 24.9 L (42.0-52.0) % Plt Count 380 (130-400) K/uL BMP 07/30/22 05:36 Sodium 135 L Potassium 4.6 D Chloride 109 H Carbon Dioxide 20 L BUN 53 H Creatinine 2.85 H Glucose 138 H Calcium 9.1 Medications Administered Current Inpatient Medications Acetaminophen (Acetaminophen 325 Mg Tab) 650 mg PO Q4H PRN PRN Reason: Pain or Fever Stop: 08/27/22 02:40 Allopurinol (Allopurinol 100 Mg Tab) 100 mg PO QAM [facility] Stop: 08/27/22 08:59 Last Admin: 07/30/22 08:54 Dose: 100 mg Dextrose (Dextrose 50% 50 Ml Syringe) 25 - 50 ml IV UD PRN; Protocol PRN Reason: Hypoglycemia Protocol Stop: 08/27/22 02:40 Glucagon (Glucagon For Inj 1 Mg Vial) 1 mg SQ UD PRN; Protocol PRN Reason: Hypoglycemia Protocol Stop: 08/27/22 02:40 Glucose (Glucose 10 Tab/Tube) 4 - 8 tab PO UD PRN; Protocol PRN Reason: Hypoglycemia Treatment Stop: 08/27/22 02:40 Glucose (Glucose 40% Gel 15 Gm Tube) 15 - 30 gm PO UD PRN; Protocol PRN Reason: Hypoglycemia Protocol Stop: 08/27/22 02:40 Promethazine HCl 6.25 mg/ (Sodium Chloride) 50.25 mls @ 201 mls/hr IV Q6H PRN PRN Reason: Nausea And Vomiting Stop: 08/27/22 02:40 Piperacillin Sod/Tazobactam (Sod 4.5 gm/ Dextrose) 120 mls @ 30 mls/hr IV Q8H [facility]; Protocol Stop: 08/07/22 11:59 Last Admin: 07/30/22 12:07 Dose: 30 mls/hr Insulin Aspart (Insulin Aspart Per Unit Charge) 0 units SC ACHS [facility] Stop: 08/27/22 03:29 Last Admin: 07/30/22 12:03 Dose: 3 units Miscellaneous (Carbohydrates For Hypoglycemia ) 15 - 30 gm PO UD PRN PRN Reason: Hypoglycemia Protocol Stop: 08/27/22 02:40 Oxycodone HCl (Oxycodone Hcl Ir 5 Mg Tab (Immediate Release)) 5 mg PO Q4H PRN PRN Reason: Pain Stop: 08/11/22 02:40 Pantoprazole Sodium (Pantoprazole 40 Mg Tab) 40 mg PO DAILYBB [facility] Stop: 08/27/22 06:29 Last Admin: 07/30/22 05:53 Dose: 40 mg Senna/Docusate Sodium (Docusate Sodium/Senna 50/8.6mg Tab) 1 tab PO QAM [facility] Stop: 08/27/22 07:09 Last Admin: 07/30/22 08:53 Dose: Not Given Thiamine HCl (Thiamine Hcl 100 Mg Tab) 100 mg PO DAILY [facility] Stop: 08/27/22 08:59 Last Admin: 07/30/22 08:54 Dose: 100 mg Vitamin B Complex (Vitamin B Complex Tab) 1 tab PO DAILY [facility] Stop: 08/27/22 08:59 Last Admin: 07/30/22 08:54 Dose: 1 tab
[2022-07-31] MEDS ORDERED: LOPERAMIDE HCL 2 MG CAP PO PRN (02:15)
[2022-07-31] MEDS: PIPERACILLIN/TAZOBACTAM 4.5 GM in DEXTROSE 5% 100 ML IV SCH ×3 (04:23→20:49)
[2022-07-31] MEDS: PANTOprazole 40 MG TAB PO SCH (05:57)
[2022-07-31 06:48] LABS: Hematocrit (blood only) 27.5 % (42.0-52.0); Hemoglobin 8.3 g/dl (14.0-18.0); Mean Corpuscular Hemoglobin 23.5 pg (25.0-34.0); Mean Corpuscular Hgb Conc 30.2 g/dL (32.0-36.0); Mean Corpuscular Volume 77.9 fL (80.0-100.0); Mean Platelet Volume 8.3 fL (9.4-12.4); Platelet Count 409 K/uL (130-400); RDW Coefficient of Variation 19.1 % (11.5-14.5); RDW Standard Deviation 53.3 fL (36.4-46.3); Red Blood Count 3.53 M/uL (4.70-6.10)
[2022-07-31 07:05] LABS: BUN Creatinine Ratio 17.7 (10-20); Calcium 9.4 mg/dl (8.6-10.3); Creatinine Clr Calc Pharmacy 22.6 ml/min; Est GFR (African American) 24.6 ml/min; Est GFR (Non-African American) 21.2 ml/min; Potassium 4.3 mmol/L (3.5-5.1)
[2022-07-31 07:22] LABS: Basophils % (auto) 0.4 %; Eosinophils # (auto) 0.28 K/uL (0-0.50); Eosinophils % (auto) 1.1 %; Immature Granulocytes # (auto) 0.19 K/uL (0.01-0.20); Immature Granulocytes % (auto) 0.7 %; Lymphocytes # (auto) 2.45 K/uL (1.2-3.4); Lymphocytes % (auto) 9.6 %; Monocytes # (auto) 1.23 K/uL (0.11-0.59); Monocytes % (auto) 4.8 %; Neutrophils # (auto) 21.35 K/uL (1.40-6.50); Neutrophils % (auto) 83.4 %
[2022-07-31] MEDS: INSULIN ASPART PER UNIT CHARGE SC SCH ×4 (08:41→20:45)
[2022-07-31] MEDS: THIAMINE HCL 100 MG TAB PO SCH (10:09)
[2022-07-31] MEDS: allopurinoL 100 MG TAB PO SCH (10:09)
[2022-07-31] MEDS: VITAMIN B COMPLEX TAB PO SCH (10:09)
--- NOTE | 2022-07-31 11:36 | CT Scan Report ---
CT abd pelvis wo con CLINICAL HISTORY: R/O intraabdominal collectiom/Abscess TECHNIQUE: Helical axial images of the abdomen and pelvis were obtained. Automated dose lowering tech niques and/or adjustment according to patient size were utilized for this exam. This exam was perfor med without intravenous contrast. CT DOSE: 962.84 mGy.cm COMPARISON: Comparison is made to CT abdomen pelvis 07/27/2022 FINDINGS: Lower chest: No acute abnormality. Liver: Unremarkable. No focal lesions are seen. Gallbladder and biliary tree: Layering stones are seen in the gallbladder. Calcifications in the gall bladder wall are also noted. No intra- or extrahepatic biliary ductal dilation. Pancreas: Unremarkable, no focal lesions. Spleen: Splenomegaly is noted, the spleen measures 14.5 cm. Adrenals: Unremarkable. Kidneys and ureters: Right percutaneous nephrostomy tube to nephroureteral stent are seen. Prominence of the bilateral ureters noted. Bladder: Diffuse homogeneous wall thickening is seen. Irregular masslike lesion in the anterior wall is again seen. Reproductive organs: Brachytherapy seeds are seen in the prostate. Bowel: Diverticulosis is seen without evidence of diverticulitis. The appendix is normal. Perirectal fat stranding and nodularity is noted with minimal rectal wall thickening. Lymph nodes Retroperitoneal: Subcentimeter lymph nodes are noted. Pelvic: Left external iliac node measures up to 12 mm in short axis. Right external iliac nodes measu re up to 9 mm. Mesenteric: Unremarkable. Peritoneum: Normal. Vessels: Atherosclerotic calcifications are seen. Abdominal wall: Bilateral fat-containing inguinal hernias are seen. Bones: Degenerative changes in the visualized spine. IMPRESSION: 1. No evidence of abscess in this patient with sepsis. 2. The appendix is normal. Perirectal thickening and rectal wall thickening may be seen in proctitis . 3. Nephrostomy tube and nephroureteral stents noted. Hydroureter on the left is unchanged. 4. Redemonstration of irregular masslike density in the bladder wall compatible with known neoplasm. 5. Additional findings as above. ACT 112: Negative or not required by law. Electronically signed by: Geraldo Foy M.D. 07/31/2022 11:34 AM
--- NOTE | 2022-07-31 13:39 | Hospitalist Progress Note ---
Date of Service July 31, 2022 Assessment & Plan (1) Severe sepsis: Plan: SIRS plus ARF on CKD Secondary to complicated UTI/proctitis hx bladder cancer on Keytruda, right hydronephrosis status post percutaneous nephroureteral tube placement Has been started on intravenous Zosyn and vancomycin Blood culture 1 out of 2 bottles and urine culture growing gram-negative bacilli-await further identification and sensitivity Patient has been feeling better Continue with Zosyn and vancomycin for now Urine culture is growing Klebsiella pneumoniae which is more or less pansensitive Blood culture is growing gram-negative bacilli and further identification is pending We will continue Vanco and Zosyn for now until final blood cultures are back Discussed with Dr. Yang-we will let him know about final culture and decide on antibiotic Patient will have appointment with the urologist as an outpatient sooner than later following discharge White count remains elevated at 24,000. No fever and no chills and the patient has been getting better Blood culture 1 out of 2 bottle gram-negative bacilli and further identification is pending, urine culture and 1 out of 2 blood cultures positive for Klebsiella pneumoniae which seems to pansensitive Will await further identification of the culture and sensitivity-cultures came out positive for Klebsiella pneumoniae both in urine and blood culture. Repeat blood cultures taken on 07/31/2022 Has had terrible night yesterday with increasing abdominal pain, lower abdominal pressure and diarrhea Still complaining of abdominal discomfort this morning and noted to have mild fever of 37.8 last evening Repeat blood cultures were taken CT of the abdomen pelvis was done-which did not show any intra-abdominal abscess, any further increase in hydronephrosis on the left side or any other significant findings We will get a urology consult for further evaluation Syncope likely secondary to orthostasis given hypotension upon arrival at the ER Has had fever the day before Extremely weak in the bathroom and difficulty to get up following the fall Likely secondary to sepsis and hypotension Rule out cardiac dysfunction -doubt any cardiac dysfunction Troponin elevation secondary to illness No cardiac issues Echo of the heart showed-EF of 60 to 65%, moderate concentric LVH, mild mitral regurgitation, there is mild tricuspid regurgitation, Doppler findings do not suggest pulmonary hypertension, small circumferential pericardial effusion there are no echocardiographic indications of cardiac tamponade Bladder cancer Status post right percutaneous nephrostomy tube about 3 weeks ago Has been on Keytruda every 3 weeks and the next dose is on Oncologist Dr. Weiss-Will inform Dr. Weiss about hospitalization and infection Repeat CT of the abdomen pelvis showed: -IMPRESSION: 1. No evidence of abscess in this patient with sepsis. 2. The appendix is normal. Perirectal thickening and rectal wall thickening may be seen in proctitis. 3. Nephrostomy tube and nephroureteral stents noted. Hydroureter on the left is unchanged. 4. Redemonstration of irregular masslike density in the bladder wall compatible with known neoplasm. 5. Additional findings as above. Likely to need more pain medications hx prostate cancer status post radiation DM 2 on oral medications, reasonable control as of recent hemoglobin A1c of 7.6 last June 2022 Continue with SSI-Basal bolus insulin, ISS BG goal 1 10-1 40, carb count coverage past tobacco/alcohol abuse AGMA secondary to kidney dysfunction Rhabdomyolysis secondary to immobility following fall Acute on chronic anemia secondary to bleed Received 1 unit of blood transfusion Hemoglobin remains more than 7 Anemia work-up, transfuse PRBC if hemoglobin less than 7 and or from symptomatic anemia Will monitor DVT prophylaxis. SCDs Re: bleed Full code Patient requesting updates from providers. Ms. Lisa Robert, contact #[phone]. Appreciate PT and OT evaluation-did very well and recommended home Admission and Anticipated Discharge Date Admission Date: July 28, 2022 Subjective 07/28/2022 The patient was seen and examined in telemetry unit History of carcinoma of the bladder and recent right percutaneous nephrostomy tube placement 3 weeks ago Was admitted with fall in the bathroom and generally weak to get up with the history of chills the day before Has been feeling much better since admission 07/29/2022 The patient was seen and examined in telemetry unit He has been feeling much better and denies any fever and or chills No abdominal pain, nausea and or vomiting Has had partial ID consult yesterday due to loss of connection 07/30/2022 The patient was seen and examined in telemetry unit He has been stable without any acute symptoms No fever and no chills, no abdominal pain and no nausea and/or vomiting 07/31/2022 The patient was seen and examined in telemetry unit Since last night he has been having diarrhea was negative for C. difficile He has been complaining of lower abdominal discomfort and pressure which has been worsening No nausea or vomiting and he has had 1 episode of slightly high temperature last evening Review of Systems Review of Systems: All systems reviewed and are unremarkable except as noted below Physical Exam Physical Exam: Going to go for physical therapy and seems to be in distress Constitutional: + ill appearing and average body habitus Eyes: PERRL, conjunctivae normal, anicteric sclerae ENMT: external ear and nose normal, oropharynx normal Respiratory: no respiratory distress Auscultation: lungs clear to auscultation bilaterally Cardiovascular: Rate/Rhythm: regular rate and regular rhythm; not tachycardic Heart Sounds: normal S1, normal S2 and + murmur Extremities: no edema Gastrointestinal (Abdomen): Inspection/Auscultation: normal bowel sounds; abdomen not distended Percussion/Palpation: abdomen soft; abdomen nontender Musculoskeletal: No acute arthritis involving any joint Neurologic: Alert, awake and oriented x3 Psychiatric: A+Ox3, euthymic affect Lymphatic: no cervical or axillary lymphadenopathy Results & Data Results & Data Vital Signs (Past 12 Hours) Vital Signs Temp Pulse Pulse Pulse Resp BP Pulse Ox 07/31/22 11:52 36.8 C 103 H 19 165/85 H 100 07/31/22 07:00 95 H 07/31/22 07:42 36.7 C 117 H 20 177/98 H 99 07/31/22 03:39 37.3 C 87 18 155/73 H 98 07/31/22 02:00 O2 Del Method O2 Del Method 07/31/22 11:52 Room Air 07/31/22 07:00 07/31/22 07:42 Room Air 07/31/22 03:39 Room Air 07/31/22 02:00 Room Air Laboratory Results Short CBC 07/31/22 Range/Units 05:56 WBC 25.60 H (4.8-10.8) K/ul Hgb 8.3 L (14.0-18.0) g/dl Hct 27.5 L (42.0-52.0) % Plt Count 409 H (130-400) K/uL BMP 07/31/22 05:56 Sodium 133 L Potassium 4.3 Chloride 105 Carbon Dioxide 18 L BUN 50 H Creatinine 2.82 H Glucose 155 H Calcium 9.4 Medications Administered Current Inpatient Medications Acetaminophen (Acetaminophen 325 Mg Tab) 650 mg PO Q4H PRN PRN Reason: Pain or Fever Stop: 08/27/22 02:40 Allopurinol (Allopurinol 100 Mg Tab) 100 mg PO QAM [facility] Stop: 08/27/22 08:59 Last Admin: 07/31/22 10:09 Dose: Not Given Dextrose (Dextrose 50% 50 Ml Syringe) 25 - 50 ml IV UD PRN; Protocol PRN Reason: Hypoglycemia Protocol Stop: 08/27/22 02:40 Glucagon (Glucagon For Inj 1 Mg Vial) 1 mg SQ UD PRN; Protocol PRN Reason: Hypoglycemia Protocol Stop: 08/27/22 02:40 Glucose (Glucose 10 Tab/Tube) 4 - 8 tab PO UD PRN; Protocol PRN Reason: Hypoglycemia Treatment Stop: 08/27/22 02:40 Glucose (Glucose 40% Gel 15 Gm Tube) 15 - 30 gm PO UD PRN; Protocol PRN Reason: Hypoglycemia Protocol Stop: 08/27/22 02:40 Promethazine HCl 6.25 mg/ (Sodium Chloride) 50.25 mls @ 201 mls/hr IV Q6H PRN PRN Reason: Nausea And Vomiting Stop: 08/27/22 02:40 Piperacillin Sod/Tazobactam (Sod 4.5 gm/ Dextrose) 120 mls @ 30 mls/hr IV Q8H CARLOS; Protocol Stop: 08/07/22 11:59 Last Infusion: 07/31/22 08:24 Dose: Infused Insulin Aspart (Insulin Aspart Per Unit Charge) 0 units SC ACHS [facility] Stop: 08/27/22 03:29 Last Admin: 07/31/22 12:08 Dose: 3 units Loperamide HCl (Loperamide Hcl 2 Mg Cap) 2 mg PO UD PRN PRN Reason: Diarrhea Stop: 08/30/22 02:14 Last Admin: 07/31/22 02:52 Dose: 2 mg Miscellaneous (Carbohydrates For Hypoglycemia ) 15 - 30 gm PO UD PRN PRN Reason: Hypoglycemia Protocol Stop: 08/27/22 02:40 Oxycodone HCl (Oxycodone Hcl Ir 5 Mg Tab (Immediate Release)) 5 mg PO Q4H PRN PRN Reason: Pain Stop: 08/11/22 02:40 Pantoprazole Sodium (Pantoprazole 40 Mg Tab) 40 mg PO DAILYBB [facility] Stop: 08/27/22 06:29 Last Admin: 07/31/22 05:57 Dose: 40 mg Senna/Docusate Sodium (Docusate Sodium/Senna 50/8.6mg Tab) 1 tab PO QAM [facility] Stop: 08/27/22 07:09 Last Admin: 07/30/22 08:53 Dose: Not Given Thiamine HCl (Thiamine Hcl 100 Mg Tab) 100 mg PO DAILY CARLOS Stop: 08/27/22 08:59 Last Admin: 07/31/22 10:09 Dose: Not Given Vitamin B Complex (Vitamin B Complex Tab) 1 tab PO DAILY CARLOS Stop: 08/27/22 08:59 Last Admin: 07/31/22 10:09 Dose: Not Given
--- NOTE | 2022-07-31 14:58 | Urology Consultation ---
Date of Consultation July 31, 2022 Assessment & Plan (1) Sepsis: (2) UTI (urinary tract infection): (3) Bladder cancer: (4) GUSTAVO (acute kidney injury): Plan 71yo/M with a hx of bladder cancer on Keytruda and a right nephrostomy tube admitted with sepsis and GUSTAVO secondary to complicated UTI/proctitis. - Afebrile at present, hemodynamically stable. - Labs reviewed - WBC 25.60, Hemoglobin 8.3, Creatinine 2.82. - UCx 07/27 with Klebsiella and alpha strep not entero. BCx 07/27 with Klebsiella, repeat pending. - On IV Zosyn, follow cultures. - Right nephrostomy tube intact and draining cloudy yellow urine. Continue to monitor. - Repeat CT abd pelvis today shows no evidence of abscess, right nephrostomy tube and nephroureteral stent intact, unchanged left hydroureter, redemonstration of the irregular masslike density in the bladder. - If there is a suspicion for left-sided pyelonephritis, worsening infection, and/or renal function, will need transferred to a tertiary center with IR for a left-sided nephrostomy tube. - Continue supportive care and antibiotic therapy. - Recommend patient follow-up with his primary urologist at [facility] for continued care. Continue to follow with oncology. - Urology will follow along. Case discussed with Dr. Shah, on-call urologist. History of Present Illness Attending Physician: Trish Wills MD History of Present Illness 71-year-old male with a complicated urological history admitted with sepsis and GUSTAVO on CKD secondary to complicated UTI/proctitis. Patient follows with [facility] Dr. Weiss. Hx prostate cancer status post radiation. Hx Brachytherapy. Hx bladder cancer on Keytruda for 3 weeks, right hydronephrosis status post percutaneous nephroureteral tube placement. CT abd pelvis 07/31- 1. No evidence of abscess in this patient with sepsis. 2. The appendix is normal. Perirectal thickening and rectal wall thickening may be seen in proctitis. 3. Nephrostomy tube and nephroureteral stents noted. Hydroureter on the left is unchanged. 4. Redemonstration of irregular masslike density in the bladder wall compatible with known neoplasm. CT abd pelvis 07/27- . Right percutaneous nephroureterostomy catheter in place. No hydronephrosis. Urothelial thickening of the bilateral ureters which could be correlated with urinalysis to exclude an infectious process. No renal abscess. 2. Irregular mass-like thickening of the bladder wall, most pronounced anteriorly. This is suggestive of a urothelial neoplasm. 3. Soft tissue thickening and a small amount of associated fluid adjacent to the apex of the prostate. Associated subtle erosions of the medial bilateral pubic bones. These findings are nonspecific and may be neoplastic or infectious. 4. Multiple mildly enlarged pelvic lymph nodes, as described above. These may be reactive or neoplastic. 5. Pelvic infiltration, including perirectal stranding. This may be treatment related. A mild proctitis cannot be excluded. No extraluminal gas. 6. Small pericardial effusion. 7. Cholelithiasis. 8. No bowel obstruction. Pt examined at bedside this afternoon. No acute distress. at bedside. Has noted increasing abdominal pain and lower abdominal pressure. Has been having diarrhea. was negative for C. difficile. No nausea or vomiting. Afebrile at present. Tmax 37.8 yesterday evening. Right nephrostomy tube is intact and draining cloudy yellow urine. Allergies Allergy/AdvReac Type Severity Reaction Status Date / Time No Known Allergies Allergy Verified 07/27/22 21:21 Home Medications Medication Instructions Recorded Confirmed Type allopurinol 100 mg tablet 100 mg PO QAM 01/02/22 07/27/22 History atorvastatin 20 mg tablet 20 mg PO DAILY 01/02/22 07/27/22 History cinnamon bark 500 mg capsule 2,000 mg PO DAILY 01/02/22 07/27/22 History (Cinnamon) metformin 500 mg tablet,extended 500 mg PO DAILY 01/02/22 07/27/22 History release 24 hr omeprazole 20 mg capsule,delayed 20 mg PO DAILYBB 01/02/22 07/27/22 History release vitamin B complex 1 cap PO DAILY 01/02/22 07/27/22 History acetaminophen 500 mg tablet 1,000 mg PO TID PRN Pain 07/27/22 07/27/22 History (Tylenol Extra Strength) amlodipine 5 mg tablet 5 mg PO DAILY 07/27/22 07/27/22 History linagliptin 5 mg tablet (Tradjenta) 5 mg PO DAILY 07/27/22 07/27/22 History losartan 50 mg tablet 50 mg PO DAILY 07/27/22 07/27/22 History sodium chloride 0.9 % (flush) 10 ml intra-catheter DAILY 07/27/22 07/27/22 History thiamine HCl (vitamin B1) 50 mg 100 mg PO DAILY 07/27/22 07/27/22 History tablet Patient History Medical History Bladder cancer Diabetes mellitus Dyslipidemia GERD (gastroesophageal reflux disease) HTN (hypertension) Surgical History S/P urological surgery Social History Smoking Status: Unknown if ever smoked Hx Alcohol Use: No Hx Substance Use: No Preferred Language: Yakut Communication Ability: Effective Web Administrator Required: No Beliefs That Will Affect Care: None Current Living Situation: Alone Feels Safe at Home: Yes Safety Concerns: Feels Safe At This Time Assistive Devices: None Review of Systems Review of Systems: All systems reviewed & are unremarkable except as noted in HPI & below Physical Exam Constitutional: + ill appearing; no acute distress Eyes: PERRL, conjunctivae normal, anicteric sclerae ENMT: external ear and nose normal, oropharynx normal Neck: normal visual inspection Respiratory: no respiratory distress and no labored breathing Musculoskeletal: Head/Neck/Chest: normocephalic Skin: no rashes Neurologic: moves all extremities and awake Psychiatric: Orientation: alert and oriented x 3 Genitourinary: Right nephrostomy tube, draining cloudy yellow urine Results & Data Vital Signs (Past 12 Hours) Vital Signs Temp Pulse Pulse Pulse Resp BP Pulse Ox 07/31/22 11:52 36.8 C 103 H 19 165/85 H 100 07/31/22 07:00 95 H 07/31/22 07:42 36.7 C 117 H 20 177/98 H 99 07/31/22 03:39 37.3 C 87 18 155/73 H 98 O2 Del Method 07/31/22 11:52 Room Air 07/31/22 07:00 07/31/22 07:42 Room Air 07/31/22 03:39 Room Air PG Care Time/CCT Total # of Minutes Spent Total Time Spent with Patient: Total time spent is greater than 50% in coordination of care (as documented) at patient's floor/unit and/or counseling patient: Coding Level of Care Code 28852 INT INP/OBS CARE MIN Diagnoses Sepsis A41.9 UTI (urinary tract infection) N39.0 Bladder cancer C67.9 GUSTAVO (acute kidney injury) N17.9
[2022-07-31] MEDS ORDERED: SOD PHOSPHATE/SOD BIPHOSPHATE ENEMA 132 ML BTL PR STA (15:48)
[2022-07-31] MEDS: oxyCODONE HCL IR 5 MG TAB (IMMEDIATE RELEASE) PO PRN ×2 (16:38→20:55)
[2022-08-01] MEDS: oxyCODONE HCL IR 5 MG TAB (IMMEDIATE RELEASE) PO PRN ×2 (01:27→08:14)
[2022-08-01] MEDS: PIPERACILLIN/TAZOBACTAM 4.5 GM in DEXTROSE 5% 100 ML IV SCH (04:36)
[2022-08-01] MEDS: PANTOprazole 40 MG TAB PO SCH (05:59)
[2022-08-01 06:28] LABS: Basophils # (auto) 0.11 K/uL (0-0.2); Basophils % (auto) 0.5 %; Eosinophils # (auto) 0.41 K/uL (0-0.50); Eosinophils % (auto) 1.8 %; Hematocrit (blood only) 22.7 % (42.0-52.0); Immature Granulocytes # (auto) 0.16 K/uL (0.01-0.20); Immature Granulocytes % (auto) 0.7 %; Lymphocytes # (auto) 2.37 K/uL (1.2-3.4); Lymphocytes % (auto) 10.4 %; Mean Corpuscular Hemoglobin 23.7 pg (25.0-34.0); Mean Corpuscular Hgb Conc 30.8 g/dL (32.0-36.0); Mean Corpuscular Volume 76.9 fL (80.0-100.0); Mean Platelet Volume 8.2 fL (9.4-12.4); Monocytes # (auto) 1.11 K/uL (0.11-0.59); Monocytes % (auto) 4.9 %; Neutrophils # (auto) 18.62 K/uL (1.40-6.50); Neutrophils % (auto) 81.7 %; Platelet Count 320 K/uL (130-400); RDW Coefficient of Variation 19.1 % (11.5-14.5); RDW Standard Deviation 53.1 fL (36.4-46.3); Red Blood Count 2.95 M/uL (4.70-6.10); White Blood Count 22.78 K/ul (4.8-10.8)
[2022-08-01 06:46] LABS: BUN Creatinine Ratio 16.4 (10-20); Calcium 9.1 mg/dl (8.6-10.3); Creatinine Clr Calc Pharmacy 21.3 ml/min; Est GFR (African American) 22.9 ml/min; Est GFR (Non-African American) 19.8 ml/min
[2022-08-01 06:56] LABS: RBC Morphology Unremarkable
[2022-08-01] MEDS: INSULIN ASPART PER UNIT CHARGE SC SCH ×2 (08:03→12:09)
[2022-08-01] MEDS: VITAMIN B COMPLEX TAB PO SCH (08:15)
[2022-08-01] MEDS: THIAMINE HCL 100 MG TAB PO SCH (08:15)
[2022-08-01] MEDS: allopurinoL 100 MG TAB PO SCH (08:15)
--- NOTE | 2022-08-01 11:50 | Hospitalist Progress Note ---
Date of Service August 01, 2022 Assessment & Plan (1) Severe sepsis: Plan: SIRS plus ARF on CKD Secondary to complicated UTI/proctitis hx bladder cancer on Keytruda, right hydronephrosis status post percutaneous nephroureteral tube placement Has been started on intravenous Zosyn and vancomycin Blood culture 1 out of 2 bottles and urine culture growing gram-negative bacilli-await further identification and sensitivity Patient has been feeling better Continue with Zosyn and vancomycin for now Urine culture is growing Klebsiella pneumoniae which is more or less pansensitive Blood culture is growing gram-negative bacilli and further identification is pending We will continue Vanco and Zosyn for now until final blood cultures are back Discussed with Dr. Yang-we will let him know about final culture and decide on antibiotic Patient will have appointment with the urologist as an outpatient sooner than later following discharge White count remains elevated at 24,000. No fever and no chills and the patient has been getting better Blood culture 1 out of 2 bottle gram-negative bacilli and further identification is pending, urine culture and 1 out of 2 blood cultures positive for Klebsiella pneumoniae which seems to pansensitive Will await further identification of the culture and sensitivity-cultures came out positive for Klebsiella pneumoniae both in urine and blood culture. Repeat blood cultures taken on 07/31/2022 Has had terrible night yesterday with increasing abdominal pain, lower abdominal pressure and diarrhea Still complaining of abdominal discomfort this morning and noted to have mild fever of 37.8 last evening Repeat blood cultures were taken CT of the abdomen pelvis was done-which did not show any intra-abdominal abscess, any further increase in hydronephrosis on the left side or any other significant findings We will get a urology consult for further evaluation -appreciate input and recommendation for follow-up with his own urologist Discussed with ID and he will be given Cipro to continue for a total of 14 days of antibiotic He was strongly advised to have follow-up with his urologist sooner than later Syncope likely secondary to orthostasis given hypotension upon arrival at the ER Has had fever the day before Extremely weak in the bathroom and difficulty to get up following the fall Likely secondary to sepsis and hypotension Rule out cardiac dysfunction -doubt any cardiac dysfunction Troponin elevation secondary to illness No cardiac issues Echo of the heart showed-EF of 60 to 65%, moderate concentric LVH, mild mitral regurgitation, there is mild tricuspid regurgitation, Doppler findings do not suggest pulmonary hypertension, small circumferential pericardial effusion there are no echocardiographic indications of cardiac tamponade Bladder cancer Status post right percutaneous nephrostomy tube about 3 weeks ago Has been on Keytruda every 3 weeks and the next dose is on Oncologist Dr. Weiss-Will inform Dr. Weiss about hospitalization and infection Repeat CT of the abdomen pelvis showed: -IMPRESSION: 1. No evidence of abscess in this patient with sepsis. 2. The appendix is normal. Perirectal thickening and rectal wall thickening may be seen in proctitis. 3. Nephrostomy tube and nephroureteral stents noted. Hydroureter on the left is unchanged. 4. Redemonstration of irregular masslike density in the bladder wall compatible with known neoplasm. 5. Additional findings as above. Likely to need more pain medications Advised to see his oncologist as soon as possible as well hx prostate cancer status post radiation DM 2 on oral medications, reasonable control as of recent hemoglobin A1c of 7.6 last June 2022 Continue with SSI-Basal bolus insulin, ISS BG goal 1 10-1 40, carb count coverage past tobacco/alcohol abuse AGMA secondary to kidney dysfunction Rhabdomyolysis secondary to immobility following fall Acute on chronic anemia secondary to bleed Received 1 unit of blood transfusion Hemoglobin remains more than 7 Anemia work-up, transfuse PRBC if hemoglobin less than 7 and or from symptomatic anemia Will monitor DVT prophylaxis. SCDs Re: bleed Full code Patient requesting updates from providers. Ms. Lisa Robert, contact #[phone]. Appreciate PT and OT evaluation-did very well and recommended home We will be discharged home this afternoon Admission and Anticipated Discharge Date Admission Date: July 28, 2022 Subjective 07/28/2022 The patient was seen and examined in telemetry unit History of carcinoma of the bladder and recent right percutaneous nephrostomy tube placement 3 weeks ago Was admitted with fall in the bathroom and generally weak to get up with the history of chills the day before Has been feeling much better since admission 07/29/2022 The patient was seen and examined in telemetry unit He has been feeling much better and denies any fever and or chills No abdominal pain, nausea and or vomiting Has had partial ID consult yesterday due to loss of connection 07/30/2022 The patient was seen and examined in telemetry unit He has been stable without any acute symptoms No fever and no chills, no abdominal pain and no nausea and/or vomiting 07/31/2022 The patient was seen and examined in telemetry unit Since last night he has been having diarrhea was negative for C. difficile He has been complaining of lower abdominal discomfort and pressure which has been worsening No nausea or vomiting and he has had 1 episode of slightly high temperature last evening 08/01/2022 The patient was seen and examined in telemetry unit He has been feeling much better and denies any significant symptoms His diarrhea is improved and now has constipation Abdominal pain is better No fever and or chills Review of Systems Review of Systems: All systems reviewed and are unremarkable except as noted below Physical Exam Physical Exam: Going to go for physical therapy and seems to be in distress Constitutional: + ill appearing and average body habitus Eyes: PERRL, conjunctivae normal, anicteric sclerae ENMT: external ear and nose normal, oropharynx normal Respiratory: no respiratory distress Auscultation: lungs clear to auscultation bilaterally Cardiovascular: Rate/Rhythm: regular rate and regular rhythm; not tachycardic Heart Sounds: normal S1, normal S2 and + murmur Extremities: no edema Gastrointestinal (Abdomen): Inspection/Auscultation: normal bowel sounds; abdomen not distended Percussion/Palpation: abdomen soft; abdomen nontender Musculoskeletal: No acute arthritis involving any joint Neurologic: Alert, awake and oriented x3. Generally weak but no focal sensory or no motor deficit appreciated Psychiatric: A+Ox3, euthymic affect Lymphatic: no cervical or axillary lymphadenopathy Results & Data Results & Data Vital Signs (Past 12 Hours) Vital Signs Temp Pulse Pulse Resp BP BP O2 Del Method 08/01/22 08:24 36.7 C 80 16 131/62 Room Air 08/01/22 07:55 88 08/01/22 03:59 37.5 C 97 H 18 152/84 H Room Air 08/01/22 00:16 Room Air 07/31/22 23:49 89 Laboratory Results Short CBC 08/01/22 Range/Units 05:56 WBC 22.78 H (4.8-10.8) K/ul Hgb 7.0 L (14.0-18.0) g/dl Hct 22.7 L (42.0-52.0) % Plt Count 320 (130-400) K/uL [facility] 08/01/22 05:56 Sodium 132 L Potassium 4.0 Chloride 106 Carbon Dioxide 18 L BUN 49 H Creatinine 2.99 H Glucose 119 H Calcium 9.1 Medications Administered Current Inpatient Medications Acetaminophen (Acetaminophen 325 Mg Tab) 650 mg PO Q4H PRN PRN Reason: Pain or Fever Stop: 08/27/22 02:40 Allopurinol (Allopurinol 100 Mg Tab) 100 mg PO QAM [facility] Stop: 08/27/22 08:59 Last Admin: 08/01/22 08:15 Dose: 100 mg Ciprofloxacin (Ciprofloxacin 500 Mg Tab) 500 mg PO DAILY [facility] Stop: 08/11/22 11:44 Dextrose (Dextrose 50% 50 Ml Syringe) 25 - 50 ml IV UD PRN; Protocol PRN Reason: Hypoglycemia Protocol Stop: 08/27/22 02:40 Glucagon (Glucagon For Inj 1 Mg Vial) 1 mg SQ UD PRN; Protocol PRN Reason: Hypoglycemia Protocol Stop: 08/27/22 02:40 Glucose (Glucose 10 Tab/Tube) 4 - 8 tab PO UD PRN; Protocol PRN Reason: Hypoglycemia Treatment Stop: 08/27/22 02:40 Glucose (Glucose 40% Gel 15 Gm Tube) 15 - 30 gm PO UD PRN; Protocol PRN Reason: Hypoglycemia Protocol Stop: 08/27/22 02:40 Promethazine HCl 6.25 mg/ (Sodium Chloride) 50.25 mls @ 201 mls/hr IV Q6H PRN PRN Reason: Nausea And Vomiting Stop: 08/27/22 02:40 Insulin Aspart (Insulin Aspart Per Unit Charge) 0 units SC ACHS [facility] Stop: 08/27/22 03:29 Last Admin: 08/01/22 08:03 Dose: 2 units Loperamide HCl (Loperamide Hcl 2 Mg Cap) 2 mg PO UD PRN PRN Reason: Diarrhea Stop: 08/30/22 02:14 Last Admin: 07/31/22 02:52 Dose: 2 mg Miscellaneous (Carbohydrates For Hypoglycemia ) 15 - 30 gm PO UD PRN PRN Reason: Hypoglycemia Protocol Stop: 08/27/22 02:40 Oxycodone HCl (Oxycodone Hcl Ir 5 Mg Tab (Immediate Release)) 5 mg PO Q4H PRN PRN Reason: Pain Stop: 08/11/22 02:40 Last Admin: 08/01/22 08:14 Dose: 5 mg Pantoprazole Sodium (Pantoprazole 40 Mg Tab) 40 mg PO DAILYBB [facility] Stop: 08/27/22 06:29 Last Admin: 08/01/22 05:59 Dose: 40 mg Senna/Docusate Sodium (Docusate Sodium/Senna 50/8.6mg Tab) 1 tab PO QAM [facility] Stop: 08/27/22 07:09 Last Admin: 07/30/22 08:53 Dose: Not Given Thiamine HCl (Thiamine Hcl 100 Mg Tab) 100 mg PO DAILY [facility] Stop: 08/27/22 08:59 Last Admin: 08/01/22 08:15 Dose: 100 mg Vitamin B Complex (Vitamin B Complex Tab) 1 tab PO DAILY [facility] Stop: 08/27/22 08:59 Last Admin: 08/01/22 08:15 Dose: 1 tab
[2022-08-01] MEDS ORDERED: CIPROFLOXACIN 500 MG TAB PO SCH (12:00)
--- NOTE | 2022-08-01 14:33 | Urology Progress Note ---
Date of Service August 01, 2022 Assessment & Plan (1) Sepsis: (2) UTI (urinary tract infection): (3) Bladder cancer: (4) GUSTAVO (acute kidney injury): Plan 71yo/M with a complicated urological hx including bladder cancer on Keytruda and a right nephrostomy tube admitted with sepsis and GUSTAVO secondary to complicated UTI/proctitis. - Afebrile and hemodynamically stable. - Labs reviewed - WBC 25.60-22.78 today, Hemoglobin 7.0, Creatinine 2.99. - UCx 07/27 with Klebsiella and alpha strep not entero. BCx 07/27 with Klebsiella, repeat pending. - On IV Zosyn, follow cultures. ID consulted. - Right nephrostomy tube intact and draining marya colored urine. Continue to monitor. - Repeat CT abd pelvis yesterday shows no evidence of abscess, right nephrostomy tube and nephroureteral stent intact, unchanged left hydroureter, redemonstration of the irregular masslike density in the bladder. - If there is a suspicion for left-sided pyelonephritis, worsening infection, and/or renal function, will need transferred to a tertiary center with IR for a left-sided nephrostomy tube. - Continue supportive care and antibiotic therapy. - Recommend patient follow-up with his primary urologist at [facility] for continued care. Continue to follow with oncology. - Urology will sign-off. Please contact us with any further questions, concerns, or changes in patient status. Admission and Anticipated Discharge Date Admission Date: July 28, 2022 Subjective Pt examined at bedside this afternoon. Awake, resting in bed on arrival. No acute distress. at bedside. Feels much better today. Denies any significant pain at present. No fevers or chills. Right nephrostomy tube is intact and draining marya colored urine. Review of Systems Constitutional: as per Subjective / HPI Genitourinary: + as per Subjective / HPI Physical Exam Constitutional: no acute distress Respiratory: no respiratory distress and no labored breathing Neurologic: moves all extremities and awake Psychiatric: Orientation: alert and oriented x 3 Genitourinary: Right nephrostomy tube, draining marya urine Results & Data Vital Signs (Past 12 Hours) Vital Signs Temp Pulse Pulse Resp BP BP Pulse Ox 08/01/22 12:26 36.8 C 79 18 129/64 97 08/01/22 08:24 36.7 C 80 16 131/62 08/01/22 07:55 88 08/01/22 03:59 37.5 C 97 H 18 152/84 H O2 Del Method 08/01/22 12:26 Room Air 08/01/22 08:24 Room Air 08/01/22 07:55 08/01/22 03:59 Room Air PG Care Time/CCT Total # of Minutes Spent Total Time Spent with Patient: Total time spent is greater than 50% in coordination of care (as documented) at patient's floor/unit and/or counseling patient: Coding Level of Care Code 54293 SUB INP/OBS CARE 2/35MIN Diagnoses Sepsis A41.9 UTI (urinary tract infection) N39.0 Bladder cancer C67.9 GUSTAVO (acute kidney injury) N17.9
== END 2022-08-01 15:49 | disposition home or self-care (01) | DRG 872 ==
LOC: ED 19:35 → 2S 07-28 01:10
DX: Z85.46 Personal history of malignant neoplasm of prostate; R65.20 Severe sepsis without septic shock; Z79.84 Long term (current) use of oral hypoglycemic drugs; I95.9 Hypotension, unspecified; M62.82 Rhabdomyolysis; N13.4 Hydroureter; Z85.51 Personal history of malignant neoplasm of bladder; D53.9 Nutritional anemia, unspecified; Z93.6 Other artificial openings of urinary tract status; A41.9 Sepsis, unspecified organism; N39.0 Urinary tract infection, site not specified; N17.9 Acute kidney failure, unspecified; Z87.891 Personal history of nicotine dependence; Z79.899 Other long term (current) drug therapy

== ENCOUNTER 2022-08-11 15:31 | Inpatient (IN) ==
[2022-08-11 16:18] LABS: Appearance Urine Turbid (Clear); Bilirubin Urine Negative (Negative); Blood Urine 3+ (Negative); Color Urine Red; Glucose Urine UA Trace (Negative); Ketones Urine Negative (Negative); Leukocyte Esterase Urine 3+ (Negative); Nitrite Urine Negative (Negative); Protein Urine 3+ (Negative); Urobilinogen Urine Negative (Negative)
[2022-08-11 16:21] LABS: RBC Urine >30 /hpf (0-4)
[2022-08-11 16:22] LABS: WBC Urine >30 /hpf (0-5)
[2022-08-11 16:23] LABS: Bacteria Urine Negative (Negative); Epithelial Cell Urine 0-5 /lpf (0-5); Hematocrit (blood only) 27.8 % (42.0-52.0); Hemoglobin 8.5 g/dl (14.0-18.0); Hyaline Casts Urine 0-5 /lpf (0-5); Mean Corpuscular Hemoglobin 23.2 pg (25.0-34.0); Mean Corpuscular Hgb Conc 30.6 g/dL (32.0-36.0); Mean Platelet Volume 8.3 fL (9.4-12.4); Platelet Count 402 K/uL (130-400); RDW Coefficient of Variation 20.4 % (11.5-14.5); RDW Standard Deviation 56.2 fL (36.4-46.3); Red Blood Count 3.66 M/uL (4.70-6.10); White Blood Count 25.82 K/ul (4.8-10.8)
[2022-08-11] MEDS ORDERED: SODIUM CHLORIDE 0.9% 1000ML 500 ML IV ONE (16:35)
[2022-08-11 16:36] LABS: Albumin Globulin Ratio 0.7 (0.9-2); Albumin Level 3.2 gm/dl (3.4-5.0); BUN Creatinine Ratio 21.1 (10-20); Bilirubin,Total 0.5 mg/dl (0.2-1.0); Calcium 9.4 mg/dl (8.6-10.3); Creatinine Clr Calc Pharmacy 23.2 ml/min; Est GFR (African American) 24.4 ml/min; Globulin 4.5 gm/dl (2.5-4.0); Potassium 3.7 mmol/L (3.5-5.1); Total Protein 7.7 gm/dl (6.0-8.3)
[2022-08-11 16:43] LABS: Anisocytosis Present; Basophils # (auto) 0.19 K/uL (0-0.2); Basophils % (auto) 0.7 %; Eosinophils # (auto) 0.18 K/uL (0-0.50); Eosinophils % (auto) 0.7 %; Immature Granulocytes # (auto) 0.18 K/uL (0.01-0.20); Immature Granulocytes % (auto) 0.7 %; Lymphocytes # (auto) 2.11 K/uL (1.2-3.4); Lymphocytes % (auto) 8.2 %; Monocytes # (auto) 1.04 K/uL (0.11-0.59); Neutrophils # (auto) 22.12 K/uL (1.40-6.50); Neutrophils % (auto) 85.7 %; Polychromasia 1+
[2022-08-11] MEDS ORDERED: cefTRIAXone SODIUM 1,000 MG in DEXTROSE 5% AD-VAN 50 ML IV STA (16:51)
--- NOTE | 2022-08-11 17:20 | History & Physical Report ---
Date of Service August 11, 2022 Assessment & Plan (1) Acute renal failure: Plan: Baseline creat is 1.8-2.2 per outpatient record review. He was recently admitted for sepsis 2/2 catheter associated UTI and Klebsiella bacteremia, nephrostomy tube in place. HE has completed his outpatient antibiotics and appears resolved with no further infection at this time. Repeat blood and urine cultures are pending. as he has been feeling run down, with a persistently elevated WBC count and abnormal UA will empirically cover with broad spectrum antibiotics pending urine culture results and clinical improvement. There is also concern for blockage and mass given ongoing bladder cancer with new onset hematuria. Will consult urology for thoughts. There is no CVA tenderness today bilaterally. Patient does report pelvic pain that is intermittent, but feels this is related to constipation. He is not consistently using narcotics for this. On Keytruda nad reports most recent infusion was yesterday with a known side effect of constipation. He was given 1L NSS in the ER. Na also is 129. He reports eating and drinking. Will cont a small amt of IVF. Nephrology consulted. Holding off on repeat imaging given the last CT scan (reported below) was just performed 1-2 weeks ago. (2) Chronic kidney disease (CKD), stage III (moderate): Plan: plan as above. (3) Hyponatremia: Plan: Multifactorial. Treating with NSS now. urine studies ordered. Nephrology consulted. (4) Hematuria: Plan: New onset yesterday, this occurs intermittently per his report. Not on any blood thinners at this time. Hold DVT chemoprophylaxis as a result until this clears. Ordered urine microscopy although it is most likely the blood is coming from the known bladder cancer. (5) Complicated UTI (urinary tract infection): Plan: Abnormal UA. Recent infection was treated, however, given clinical decline and persistent groin pain (which also may be bladder tumor that persists, or constipation) will continue empiric antibiotics. (6) Bacteremia due to Klebsiella pneumoniae: Plan: Likely this has been treated. Repeating urine and blood cultures now to confirm. (7) Bladder cancer: Plan: Under the care of Dr. Weiss and Dr. Calvo. Muscle invasive bladder cancer with no known metastases (T2N2M0) s/p bladder tumor fulguration in fall 2021, immunotherapy with Keytruda since 02/2022. Last Keytruda infusion was 08/10/22. Cont per outpatient specialists. (8) Hydroureter: Plan: persistent, chronic. Right nephrostomy tube in place. Urology consulted to reassess. (9) DMII (diabetes mellitus, type 2): Plan: chronic, poorly controlled as outpatient with A1C in Debra os 7.6. Hold metformin and trajenta and continue with basal/bolus insulin. (10) Gout: Plan: chronic, stable. Cont allopurinol. (11) HTN (hypertension): Plan: chronic, stable. Cont amlodipine. (12) Constipation: Plan: chronic, uncomfortable. Cont with scheduled miralax and senna and will attempt a milk and molasses enema today. (13) Protein calorie malnutrition: Plan: 45 lb weight loss reported over the past 6 months. Weight is stable per his report for the time being. SCDs, DVT chemoprophy contraindicated given hematuria. Full code per my discussion with him on admission Dispo-to floor, PT/OT to evaluate Cristine He DO [facility] History of Present Illness Chief Complaint: abnormal labs Primary Care Provider: Carlitos Chaparro MD 71-year-old patient with history of bladder cancer on Keytruda and right hydronephrosis status post percutaneous nephroureteral tube placement prostate cancer postradiation CKD and diabetes presents as a referral from PCP office for abnormal lab results. PCP told him to get fluids and have kidneys evaluated. He was recently admitted to the hospital and discharged on 07/31/22 found to have Klebsiella bacteremia with a complicated UTI. Few weeks ago he underwent IR guided right percutaneous nephroureteral tube check and exchange at [facility]. He had developed flank discomfort and blood in the urine postprocedure with chills following this which turned into sepsis with gram- negative bacteremia. During the last admission infectious disease saw him and recommended continuation with cefepime and vancomycin as well as oral metronidazole. This was tapered to ciprofloxacin for total of 14 days at discharge. He also saw urology during the last hospital stay. Repeat CT of the abdomen pelvis at that time revealed no evidence of abscess with right nephrostomy tube and nephroureteral stent intact, unchanged left hydroureter and a redemonstration of the irregular masslike density in the bladder. No additional interventions were recommended at that time. Today he reports feeling weak, tired, feeling run down, constipated, intermittent groin pain likely related the constipation. Feels that flushing his nephrostomy tube twice daily gives him more relief, meaning he feels less urgency to void No appetite but weight is holding steady and he is eating. Dr Calvo is his urologist. urine in bag turned purple yesterday and is reportedly red today He wouldn't show me the bag because he had tight jeans on. Allergies Allergy/AdvReac Type Severity Reaction Status Date / Time No Known Allergies Allergy Verified 08/11/22 17:17 Home Medications Medication Instructions Recorded Confirmed Type allopurinol 100 mg tablet 100 mg PO QAM 01/02/22 08/11/22 History atorvastatin 20 mg tablet 20 mg PO DAILY 01/02/22 08/11/22 History cinnamon bark 500 mg capsule 2,000 mg PO DAILY 01/02/22 08/11/22 History (Cinnamon) metformin 500 mg tablet,extended 500 mg PO DAILY 01/02/22 08/11/22 History release 24 hr omeprazole 20 mg capsule,delayed 20 mg PO DAILYBB 01/02/22 08/11/22 History release vitamin B complex 1 cap PO DAILY 01/02/22 08/11/22 History acetaminophen 500 mg tablet 1,000 mg PO TID PRN Pain 07/27/22 08/11/22 History (Tylenol Extra Strength) amlodipine 5 mg tablet 5 mg PO DAILY 07/27/22 08/11/22 History linagliptin 5 mg tablet (Tradjenta) 5 mg PO DAILY 07/27/22 08/11/22 History sodium chloride 0.9 % (flush) 10 ml intra-catheter BID 07/27/22 08/11/22 History thiamine HCl (vitamin B1) 50 mg 50 mg PO DAILY 07/27/22 08/11/22 History tablet Past Med/Surg History Medical History Bladder cancer Chronic kidney disease (CKD), stage III (moderate) Diabetes mellitus DMII (diabetes mellitus, type 2) Dyslipidemia GERD (gastroesophageal reflux disease) Gout H/O prostate cancer HTN (hypertension) Melanoma Protein calorie malnutrition Surgical History H/O cystoscopy 12/2021 with fulguration of bladder tumor 11/2021 witth fulguration of bladder tumor H/O umbilical hernia repair History of mandibular surgery 1975 S/P urological surgery IR drainage catheter change right, 02/22 place percutaneous nephrostomy tube- [facility] Family History Brother Cancer Social History Smoking Status: Never smoker Tobacco Type: Smokeless Tobacco (Dip or Chew) Hx Alcohol Use: Yes Hx Substance Use: No Preferred Language: Portuguese Communication Ability: Effective Pathology Technician Required: No Beliefs That Will Affect Care: None Current Living Situation: Alone Feels Safe at Home: Yes Assistive Devices: None Review of Systems Review of Systems: All systems were reviewed and negative except as indicated on HPI above. Physical Exam Physical Exam: CONSTITUTIONAL: thin, vitals as above, generally well-appearing, NAD EYES: normal conjunctivae, no scleral icterus ENT: external ear and nose normal, oropharynx clear, MMM NECK: trachea midline RESPIRATORY: clear to auscultation bilaterally, no crackles, rales or wheezes, normal respiratory effort CARDIOVASCULAR: regular rate and rhythm, S1 and 2 heard without murmurs, gallops or rubs, no JVD, no peripheral edema CHEST: inspection of chest was normal GASTROINTESTINAL: soft, nontender, ND, no guarding MUSCULOSKELETAL: strength 5/5 throughout, head is normocephalic and atraumatic SKIN: warm and dry, posterior insertion of right nephrostomy tube. No surrounding redness or drainage present. NEUROLOGIC: CN 2-12 grossly intact, no sensory deficit, normal cognition, normal speech, no tremor PSYCHIATRIC: alert cooperative and oriented to person, place and time. Euthymic mood, makes good eye contact, language grossly intact, recent and remote memory grossly intact. Results & Data Results & Data Vital Signs (Past 12 Hours) Vital Signs Temp Pulse Pulse Resp BP BP Pulse Ox 08/11/22 16:26 90 20 117/54 L 98 08/11/22 15:32 36.7 C 97 H 18 143/76 H 99 O2 Del Method 08/11/22 16:26 Room Air 08/11/22 15:32 Room Air Laboratory Results Short CBC 08/11/22 Range/Units 15:47 WBC 25.82 H (4.8-10.8) K/ul Hgb 8.5 L (14.0-18.0) g/dl Hct 27.8 L (42.0-52.0) % Plt Count 402 H (130-400) K/uL BMP 08/11/22 15:47 Sodium 129 L Potassium 3.7 Chloride 100 Carbon Dioxide 18 L BUN 60 H Creatinine 2.84 H Glucose 231 H Calcium 9.4 Liver Function 08/11/22 Range/Units 15:47 Total Bilirubin 0.5 (0.2-1.0) mg/dl AST 11 L (13-39) U/L ALT 9 (7-52) U/L Alkaline Phosphatase 121 H (34-104) U/L Albumin 3.2 L (3.4-5.0) gm/dl Urine 08/11/22 Range/Units 15:47 Urine Color Red Urine Appearance Turbid A (Clear) Urine pH 6.0 (4.5-7.5) Ur Specific [place] 1.020 (1.000-1.030) Urine Protein 3+ H (Negative) Urine Glucose (UA) Trace H (Negative) Diagnostic Findings CT abd pelvis wo con CLINICAL HISTORY: R/O intraabdominal collectiom/Abscess TECHNIQUE: Helical axial images of the abdomen and pelvis were obtained. Automated dose lowering techniques and/or adjustment according to patient size were utilized for this exam. This exam was performed without intravenous contrast. CT DOSE: 962.84 mGy.cm COMPARISON: Comparison is made to CT abdomen pelvis 07/27/2022 FINDINGS: Lower chest: No acute abnormality. Liver: Unremarkable. No focal lesions are seen. Gallbladder and biliary tree: Layering stones are seen in the gallbladder. Calcifications in the gallbladder wall are also noted. No intra- or extrahepatic biliary ductal dilation. Pancreas: Unremarkable, no focal lesions. Spleen: Splenomegaly is noted, the spleen measures 14.5 cm. Adrenals: Unremarkable. Kidneys and ureters: Right percutaneous nephrostomy tube to nephroureteral stent are seen. Prominence of the bilateral ureters noted. Bladder: Diffuse homogeneous wall thickening is seen. Irregular masslike lesion in the anterior wall is again seen. Reproductive organs: Brachytherapy seeds are seen in the prostate. Bowel: Diverticulosis is seen without evidence of diverticulitis. The appendix is normal. Perirectal fat stranding and nodularity is noted with minimal rectal wall thickening. Lymph nodes Retroperitoneal: Subcentimeter lymph nodes are noted. Pelvic: Left external iliac node measures up to 12 mm in short axis. Right external iliac nodes measure up to 9 mm. Mesenteric: Unremarkable. Peritoneum: Normal. Vessels: Atherosclerotic calcifications are seen. Abdominal wall: Bilateral fat-containing inguinal hernias are seen. Bones: Degenerative changes in the visualized spine. IMPRESSION: 1. No evidence of abscess in this patient with sepsis. 2. The appendix is normal. Perirectal thickening and rectal wall thickening may be seen in proctitis. 3. Nephrostomy tube and nephroureteral stents noted. Hydroureter on the left is unchanged. 4. Redemonstration of irregular masslike density in the bladder wall compatible with known neoplasm. 5. Additional findings as above. ACT 112: Negative or not required by law. Electronically signed by: Geraldo Foy M.D. 07/31/2022 11:34 AM Dictated:07/31/22 1113 Transcribed: 07/31/22 1113 Medications Administered Current Inpatient Medications Ceftriaxone Sodium 1,000 mg/ (Dextrose) 50 mls @ 100 mls/hr IV NOW STA Stop: 08/11/22 17:20 Sodium Chloride (Nss) 500 mls @ 125 mls/hr IV .Q4H CARLOS Stop: 09/10/22 16:59 (4) Hematuria Hematuria type: gross Qualified Code(s): R31.0 - Gross hematuria
--- NOTE | 2022-08-11 18:35 | Emergency Department Note ---
History of Present Illness General Chief Complaint: Abnormal Labs/Diagnostic Testing Stated Complaint: ABNORMAL LABS, REFERRED BY DOCTOR Time Seen by Provider: 08/11/22 16:02 History of Present Illness Provider Complaint: + abnormal lab Associated symptoms: no fever, no chills, no chest pain, no shortness of breath, no rash, no nausea or no abdominal pain HPI narrative: 71-year-old male presents emergency department for abnormal labs. Patient states he had blood work done by Dr. Chaparro at [facility] and was told to come to the emergency department for abnormal labs. He states he is not sure what labs were abnormal. He reports constipation but no abdominal pain. No nausea or vomiting. No fevers. No chest pain difficulty breathing or coughing. Home Medications Medication Instructions Recorded Confirmed Type allopurinol 100 mg tablet 100 mg PO QAM 01/02/22 08/11/22 History atorvastatin 20 mg tablet 20 mg PO DAILY 01/02/22 08/11/22 History cinnamon bark 500 mg capsule 2,000 mg PO DAILY 01/02/22 08/11/22 History (Cinnamon) metformin 500 mg tablet,extended 500 mg PO DAILY 01/02/22 08/11/22 History release 24 hr omeprazole 20 mg capsule,delayed 20 mg PO DAILYBB 01/02/22 08/11/22 History release vitamin B complex 1 cap PO DAILY 01/02/22 08/11/22 History acetaminophen 500 mg tablet 1,000 mg PO TID PRN Pain 07/27/22 08/11/22 History (Tylenol Extra Strength) amlodipine 5 mg tablet 5 mg PO DAILY 07/27/22 08/11/22 History linagliptin 5 mg tablet (Tradjenta) 5 mg PO DAILY 07/27/22 08/11/22 History sodium chloride 0.9 % (flush) 10 ml intra-catheter BID 07/27/22 08/11/22 History thiamine HCl (vitamin B1) 50 mg 50 mg PO DAILY 07/27/22 08/11/22 History tablet ciprofloxacin HCl 500 mg tablet 500 mg PO DAILY 08/11/22 08/11/22 History (Cipro) Allergies Allergy/AdvReac Type Severity Reaction Status Date / Time No Known Allergies Allergy Verified 08/11/22 17:17 Past Med/Surg History Medical History Alcohol abuse Bladder cancer Chronic kidney disease (CKD), stage III (moderate) Diabetes mellitus DMII (diabetes mellitus, type 2) Dyslipidemia GERD (gastroesophageal reflux disease) Gout H/O prostate cancer HTN (hypertension) Melanoma Protein calorie malnutrition Surgical History H/O cystoscopy 12/2021 with fulguration of bladder tumor 11/2021 witth fulguration of bladder tumor H/O umbilical hernia repair History of mandibular surgery 1975 S/P urological surgery IR drainage catheter change right, 12/7 place percutaneous nephrostomy tube- [facility] Family History Brother Cancer Social History Smoking Status: Never smoker Tobacco Type: Smokeless Tobacco (Dip or Chew) Hx Alcohol Use: Yes Hx Substance Use: No Preferred Language: Syriac Communication Ability: Effective Mule Developer Required: No Beliefs That Will Affect Care: None Current Living Situation: Alone Feels Safe at Home: Yes Assistive Devices: None Physical Exam Vital Signs: Vital Signs - 24 hr 08/11/22 15:32 08/11/22 16:26 Temperature 36.7 C Temperature Source Temporal Artery Sc an Pulse Rate 97 H Pulse Rate [Right Finger] 90 Respiratory Rate 18 20 Respiratory Effort / Characteristics Non-Labored Respiratory Depth Normal Blood Pressure 143/76 H Blood Pressure [Ri ght Arm] 117/54 L Blood Pressure Jessa n 98 Blood Pressure Jessa n [Right Arm] 75 Pulse Oximetry 99 98 Oxygen Delivery Me thod Room Air Room Air Sepsis Recent Feve r Within 48 Hours No Sepsis New/Unexpla ined Change in Men gudelia Status No Sepsis Action Take n by Nursing No Action Required Physical Exam: Physical Exam GENERAL: oriented to person, place, and time. appears well-developed and well- nourished. HENT: Exam performed. - Head: Normocephalic and atraumatic. EYES: Conjunctivae and EOM are normal. Right eye exhibits no discharge. Left eye exhibits no discharge. No scleral icterus. NECK: Normal range of motion. Neck supple. No JVD present. CV: Normal rate, regular rhythm, normal heart sounds and intact distal pulses. There is no peripheral edema. Palpable radial pulses bue. PULM/CHEST: Effort normal and breath sounds normal. No respiratory distress. No stridor. no wheezes. no rales. ABD: The abdomen is soft. There is no tenderness. Right-sided nephrostomy tube present. NEURO: Motor and sensation grossly intact. SKIN: Skin is warm and dry. He is not diaphoretic. PSYCH: normal mood and affect. Behavior is normal. Judgment and thought content normal. Course Course 160: The patient was evaluated in room B12. A complete history and physical exam was performed Cardiac monitoring: An order was placed for continuous cardiac monitoring. The monitor shows a rate of 90 with sinus rhythm interpreted by ct 1650: Vital signs stable. Labs show leukocytosis of 25.82. This is stable for the patient as he has had leukocytosis the entire month of July 2022. Labs in the emergency department show a sodium of 129. BUN of 60. Creatinine 2.84. GFR 21. External medical records were obtained by Mark proposal manager writer and patient had blood work yesterday which showed BUN of 60 creatinine of 3.1 GFR of 21. When compared to the labs done from August 04, 2022 [facility] the patient's BUN then was 50, creatinine 2.7, GFR 25. Urinalysis is concerning for infection. Patient given dose of Rocephin in the emergency department. Discussed the case with [facility] nephrology on-call Dr. Moeller. He states Patient can be admitted for IV fluids and antibiotics and he will evaluate the patient in the morning. Discussed case with [facility] hospitalist team who stated to admit to Dr. He. Administered Medications Discontinued Medications Sodium Chloride (Nss 1000ml) 500 mls @ 999 mls/hr IV .Q31M ONE Stop: 08/11/22 17:05 Last Infusion: 08/11/22 17:45 Dose: 0 mls/hr Documented By: Admin: 08/11/22 16:39 Dose: 999 mls/hr Documented By: CORKY Ceftriaxone Sodium 1,000 mg/ (Dextrose) 50 mls @ 100 mls/hr IV NOW STA Stop: 08/11/22 17:20 Last Infusion: 08/11/22 18:32 Dose: 0 mls/hr Documented By: Admin: 08/11/22 18:00 Dose: 100 mls/hr Documented By: CORKY Medical Decision Making Medical Records Attestation: I reviewed the patient's medical records. External medical records were obtained by [facility] proposal manager writer and patient had blood work yesterday which showed BUN of 60 creatinine of 3.1 GFR of 21. When comp ared to the labs done from August 04, 2022 in the [facility] system the patient's BUN then was 50, creatinine 2.7, GFR 25. Laboratory Data Attestation: I reviewed the patient's lab results. 08/11/22 15:47 08/11/22 15:47 Lab Results 08/11/22 08/11/22 08/11/22 Range/Units 15:47 15:47 15:47 WBC 25.82 H (4.8-10.8) K/ul RBC 3.66 L (4.70-6.10) M/uL Hgb 8.5 L (14.0-18.0) g/dl Hct 27.8 L (42.0-52.0) % MCV 76.0 L (80.0-100.0) fL MCH 23.2 L (25.0-34.0) pg MCHC 30.6 L (32.0-36.0) g/dL RDW Std Deviation 56.2 H (36.4-46.3) fL RDW Coeff of Krystal 20.4 H (11.5-14.5) % Plt Count 402 H (130-400) K/uL MPV 8.3 L (9.4-12.4) fL Immature Gran % (Auto) 0.7 % Neut % (Auto) 85.7 % Lymph % (Auto) 8.2 % Cochran % (Auto) 4.0 % Eos % (Auto) 0.7 % Baso % (Auto) 0.7 % Neut # (Auto) 22.12 H (1.40-6.50) K/uL Lymph # (Auto) 2.11 (1.2-3.4) K/uL Cochran # (Auto) 1.04 H (0.11-0.59) K/uL Eos # (Auto) 0.18 (0-0.50) K/uL Baso # (Auto) 0.19 (0-0.2) K/uL Immature Gran # (Auto) 0.18 (0.01-0.20) K/uL Polychromasia 1+ Anisocytosis Present Sodium 129 L (136-145) mmol/L Potassium 3.7 (3.5-5.1) mmol/L Chloride 100 (98-107) mmol/L Carbon Dioxide 18 L (21-32) mmol/L Anion Gap 11 (3-11) BUN 60 H (6-23) mg/dl Creatinine 2.84 H (0.6-1.4) mg/dl Est Cr Clr Drug Dosing 23.2 ml/min Est GFR ( Amer) 24.4 ml/min Est GFR (Non-Af Amer) 21.0 ml/min BUN/Creatinine Ratio 21.1 H (10-20) Glucose 231 H (70-99(Fasting)) mg/dl Calcium 9.4 (8.6-10.3) mg/dl Total Bilirubin 0.5 (0.2-1.0) mg/dl AST 11 L (13-39) U/L ALT 9 (7-52) U/L Alkaline Phosphatase 121 H (34-104) U/L Total Protein 7.7 (6.0-8.3) gm/dl Albumin 3.2 L (3.4-5.0) gm/dl Globulin 4.5 H (2.5-4.0) gm/dl Albumin/Globulin Ratio 0.7 L (0.9-2) Urine Color Red Urine Appearance Turbid A (Clear) Urine pH 6.0 (4.5-7.5) Ur Specific [place] 1.020 (1.000-1.030) Urine Protein 3+ H (Negative) Urine Glucose (UA) Trace H (Negative) Urine Ketones Negative (Negative) Urine Blood 3+ H (Negative) Urine Nitrite Negative (Negative) Urine Bilirubin Negative (Negative) Urine Urobilinogen Negative (Negative) Ur Leukocyte Esterase 3+ H (Negative) Urine RBC >30 H (0-4) /hpf Urine WBC >30 H (0-5) /hpf Ur Epithelial Cells 0-5 (0-5) /lpf Urine Bacteria Negative (Negative) Hyaline Casts 0-5 (0-5) /lpf SARS-CoV-2, RNA, NAAT (NEGATIVE) 08/11/22 Range/Units 17:51 WBC (4.8-10.8) K/ul RBC (4.70-6.10) M/uL Hgb (14.0-18.0) g/dl Hct (42.0-52.0) % MCV (80.0-100.0) fL MCH (25.0-34.0) pg MCHC (32.0-36.0) g/dL RDW Std Deviation (36.4-46.3) fL RDW Coeff of Krystal (11.5-14.5) % Plt Count (130-400) K/uL MPV (9.4-12.4) fL Immature Gran % (Auto) % Neut % (Auto) % Lymph % (Auto) % Cochran % (Auto) % Eos % (Auto) % Baso % (Auto) % Neut # (Auto) (1.40-6.50) K/uL Lymph # (Auto) (1.2-3.4) K/uL Co[place]ran # (Auto) (0.11-0.59) K/uL Eos # (Auto) (0-0.50) K/uL Baso # (Auto) (0-0.2) K/uL Immature Gran # (Auto) (0.01-0.20) K/uL Polychromasia Anisocytosis Sodium (136-145) mmol/L Potassium (3.5-5.1) mmol/L Chloride (98-107) mmol/L Carbon Dioxide (21-32) mmol/L Anion Gap (3-11) BUN (6-23) mg/dl Creatinine (0.6-1.4) mg/dl Est Cr Clr Drug Dosing ml/min Est GFR ( Amer) ml/min Est GFR (Non-Af Amer) ml/min BUN/Creatinine Ratio (10-20) Glucose (70-99(Fasting)) mg/dl Calcium (8.6-10.3) mg/dl Total Bilirubin (0.2-1.0) mg/dl AST (13-39) U/L ALT (7-52) U/L Alkaline Phosphatase (34-104) U/L Total Protein (6.0-8.3) gm/dl Albumin (3.4-5.0) gm/dl Globulin (2.5-4.0) gm/dl Albumin/Globulin Ratio (0.9-2) Urine Color Urine Appearance (Clear) Urine pH (4.5-7.5) Ur Specific [place] (1.000-1.030) Urine Protein (Negative) Urine Glucose (UA) (Negative) Urine Ketones (Negative) Urine Blood (Negative) Urine Nitrite (Negative) Urine Bilirubin (Negative) Urine Urobilinogen (Negative) Ur Leukocyte Esterase (Negative) Urine RBC (0-4) /hpf Urine WBC (0-5) /hpf Ur Epithelial Cells (0-5) /lpf Urine Bacteria (Negative) Hyaline Casts (0-5) /lpf SARS-CoV-2, RNA, NAAT NEGATIVE (NEGATIVE) [facility] Narrative 1602: The patient was evaluated in room B12. A complete history and physical exam was performed Cardiac monitoring: An order was placed for continuous cardiac monitoring. The monitor shows a rate of 90 with sinus rhythm interpreted by ct 1650: Vital signs stable. Labs show leukocytosis of 25.82. This is stable for the patient as he has had leukocytosis the entire month of July 2022. Labs in the emergency department show a sodium of 129. BUN of 60. Creatinine 2.84. GFR 21. External medical records were obtained by Mark proposal manager writer and patient had blood work yesterday which showed BUN of 60 creatinine of 3.1 GFR of 21. When compared to the labs done from August 04, 2022 in the [facility] system the patient's BUN then was 50, creatinine 2.7, GFR 25. Urinalysis is concerning for infection. Patient given dose of Rocephin in the emergency department. Discussed the case with [facility] nephrology on-call Dr. Moeller. He states P atient can be admitted for IV fluids and antibiotics and he will evaluate the patient in the morning. Discussed case with [facility] hospitalist team who stated to admit to Dr. He. Impression & Plan UTI (urinary tract infection), GUSTAVO (acute kidney injury) Discharge Plan Visit Data Chief Complaint: Abnormal Labs/Diagnostic Testing Stated Complaint: ABNORMAL LABS, REFERRED BY DOCTOR ED Provider: Tian Gaitan Discharge Problem: UTI (urinary tract infection), GUSTAVO (acute kidney injury) Patient Disposition: Admitted As Inpatient Forms Stand Alone Forms: My [facility] Prescriptions Prescriptions: No Action metformin 500 mg tablet extended release 24 hr 500 mg PO DAILY Rx Instructions: PER PT "STOPPED THIS MED". allopurinol 100 mg tablet 100 mg PO QAM omeprazole 20 mg capsule,delayed release(DR/EC) 20 mg PO DAILYBB atorvastatin 20 mg tablet 20 mg PO DAILY vitamin B complex Capsule 1 cap PO DAILY cinnamon bark [Cinnamon] 500 mg Capsule 2,000 mg PO DAILY amlodipine 5 mg Tablet 5 mg PO DAILY acetaminophen [Tylenol Extra Strength] 500 mg Tablet 1,000 mg PO TID PRN (Reason: Pain) thiamine HCl (vitamin B1) 50 mg Tablet 50 mg PO DAILY sodium chloride 0.9 % (flush) Syringe 10 ml intra-catheter BID Tradjenta 5 mg Tablet 5 mg PO DAILY ciprofloxacin HCl [Cipro] 500 mg Tablet 500 mg PO DAILY Rx Instructions: STARTED 08/01/22 PER [facility] MED [facility]. Referrals Referrals: Carlitos Chaparro MD [Primary Care Provider] -
[2022-08-11] MEDS: SODIUM CHLORIDE 0.9% 500 ML IV SCH ×2 (19:30→22:11)
[2022-08-11] MEDS ORDERED: DEXTROSE 50% 50 ML SYRINGE IV PRN (21:26)
[2022-08-11] MEDS ORDERED: CARBOHYDRATES FOR HYPOGLYCEMIA PO PRN (21:26)
[2022-08-11] MEDS ORDERED: GLUCOSE 40% GEL 15 GM TUBE PO PRN (21:26)
[2022-08-11] MEDS ORDERED: GLUCAGON FOR INJ 1 MG VIAL SQ PRN (21:26)
[2022-08-11] MEDS ORDERED: ACETAMINOPHEN 325 MG TAB PO PRN (21:26)
[2022-08-11] MEDS ORDERED: SODIUM CHLORIDE 0.9% 1000ML 1,000 ML IV SCH (21:26)
[2022-08-11] MEDS ORDERED: POLYETHYLENE (MIRALAX) 17 GM PACK PO PRN (21:26)
[2022-08-11] MEDS ORDERED: GLUCOSE 10 TAB/TUBE PO PRN (21:26)
[2022-08-11] MEDS: POLYETHYLENE (MIRALAX) 17 GM PACK PO SCH (21:54)
[2022-08-11] MEDS: SENNA 8.6 MG TAB PO SCH (21:54)
[2022-08-11] MEDS: INSULIN ASPART PER UNIT CHARGE SC SCH (21:55)
[2022-08-11] MEDS: LANTUS PER UNIT CHARGE SQ SCH (21:55)
[2022-08-11] MEDS: HEPARIN SOD 5,000 UNIT/0.5 ML VIAL SQ SCH (22:00)
[2022-08-11 22:33] LABS: Appearance Urine Turbid (Clear); Bilirubin Urine Negative (Negative); Blood Urine 3+ (Negative); Color Urine Red; Glucose Urine UA Trace (Negative); Ketones Urine Negative (Negative); Leukocyte Esterase Urine 1+ (Negative); Nitrite Urine Negative (Negative); Protein Urine 3+ (Negative); Urobilinogen Urine Negative (Negative)
[2022-08-11 22:40] LABS: RBC Urine >30 /hpf (0-4); WBC Urine >30 /hpf (0-5)
[2022-08-11 22:41] LABS: Bacteria Urine Negative (Negative); Hyaline Casts Urine 0-5 /lpf (0-5)
[2022-08-11 23:43] LABS: Creatinine Urine Random 35.3 mg/dl
[2022-08-12] MEDS: PANTOprazole 40 MG TAB PO SCH (05:36)
[2022-08-12] MEDS: HEPARIN SOD 5,000 UNIT/0.5 ML VIAL SQ SCH ×2 (05:37→13:51)
[2022-08-12 07:14] LABS: Hemoglobin 6.9 g/dl (14.0-18.0); Mean Corpuscular Hgb Conc 31.4 g/dL (32.0-36.0); Mean Corpuscular Volume 76.7 fL (80.0-100.0); Mean Platelet Volume 8.2 fL (9.4-12.4); Platelet Count 318 K/uL (130-400); RDW Coefficient of Variation 20.2 % (11.5-14.5); RDW Standard Deviation 56.2 fL (36.4-46.3); Red Blood Count 2.87 M/uL (4.70-6.10); White Blood Count 20.38 K/ul (4.8-10.8)
[2022-08-12 07:25] LABS: BUN Creatinine Ratio 20.7 (10-20); Calcium 8.9 mg/dl (8.6-10.3); Creatinine Clr Calc Pharmacy 23.5 ml/min; Est GFR (African American) 25.8 ml/min; Est GFR (Non-African American) 22.3 ml/min; Magnesium 1.5 mg/dl (1.7-2.4); Phosphorus 3.8 mg/dl (2.5-4.9); Potassium 3.4 mmol/L (3.5-5.1)
[2022-08-12] MEDS ORDERED: SODIUM CHLORIDE 0.9% 250 ML IV PRN (07:48)
[2022-08-12] MEDS ORDERED: ACETAMINOPHEN 325 MG TAB PO ONE (07:48)
[2022-08-12] MEDS ORDERED: POTASSIUM CHLORIDE CRTAB 20 MEQ TABCR PO STA (08:05)
[2022-08-12] MEDS: INSULIN ASPART PER UNIT CHARGE SC SCH ×4 (08:22→21:07)
[2022-08-12] MEDS: LANTUS PER UNIT CHARGE SQ SCH ×2 (08:22→21:06)
[2022-08-12] MEDS: MAGNESIUM SULFATE / D5W 1 GM/100 ML BAG IV SCH ×2 (08:22→11:04)
[2022-08-12] MEDS: ATORVASTATIN 20 MG TAB PO SCH (08:23)
[2022-08-12] MEDS: THIAMINE HCL 50 MG TABLET PO SCH (08:23)
[2022-08-12] MEDS: amLODIPine BESYLATE 5 MG TAB PO SCH (08:23)
[2022-08-12] MEDS: allopurinoL 100 MG TAB PO SCH (08:23)
[2022-08-12] MEDS: POLYETHYLENE (MIRALAX) 17 GM PACK PO SCH ×2 (08:23→21:07)
[2022-08-12] MEDS: VITAMIN B COMPLEX TAB PO SCH (08:26)
--- NOTE | 2022-08-12 08:46 | Urology Consultation ---
Date of Consultation August 12, 2022 Assessment & Plan (1) Bladder cancer: (2) Hydroureter: (3) Complicated UTI (urinary tract infection): Plan Complex patient who required relatively extensive chart review and history review as his complex urological care has not been received through [facility] - but through [facility] Chronic hydro, chronic leukocytosis; undergoing bladder ca treatment now (Keytruda) for met TCC; R nephro-ureteral stent; no left sided drains; no spontaneous voiding through urethra; prior brachy/rad for prostate ca - unfortunately, despite my extensive review of his records, I have little additional advice to offer - he has had no new imaging, his labs are functionally stable from the time of his dc last week - his new cultures are pending - his right nephrostomy is functioning appropriately - his left side is undrained - but his bladder appears to be more abnormal around the left UO than the right - so any drainage of the left side would likely have to be via nephrostomy/nephroureteral stent placement (i.e. IR) - uncertain this is necessary right now - he also reports that he has not been voiding through his urethra for months - so all UoP is through the right nephrostomy (presumably siphoning from the left kidney/bladder in addition to draining the right kidney) - I would imagine this is a major contributing element to his CKD and also a reservoir for infection - ID previously consulted - and main treatment for infection will be abx - given his chronic left hydro and moderately distended bladder, it could be argued that adequate treatment of the infection may be contingent on elimination of the reservoir of reinfection (i.e nephrostomy placement to max drain left side and possible catheterization (likely difficult) to drain bladder). Given his hemodynamic stability and afebrile status, though, I think this would be extremely aggressive and more importantly, could easily be considered as an outpt (should discuss with Dr. Calvo and Luis Enrique - his primary urologists) - acutely, I do not feel there are any interventions at [facility] that we should pursue from a standpoint Greater than 60 minutes spent on the consultation, chart review, patient discussion/documentation today History of Present Illness Attending Physician: Fer Scott MD History of Present Illness 71y/o male, recently introduced to our service during a hospitalization, who now returns with a similar presentation hx of prostate ca s/p brachy and radiation hx of bladder ca - on immunotherapy (keytruda), chronic b/l hydro (right nephrostomy); adenopathy/met disease recently with positive cultures and admission/abx therapy CKD - cr has been around 2.6 for at least nthe past month - initial concern for rhabdo? interestingly, he reports he has not been voiding through his urethra for months (significant difficulties with hematuria/clot obstruction in late 2021 around the time of TURBT) anemia - tenative transfusion planned for today? leukocytosis (20 today - lowest in 1 month) cultures from last hospitalization - klebsiella new cultures pending now most recent imaging of the abd on 07/31 (prior admit) - appropriate right NU tube placement; left hydro (bladder was also quite distended at that time with contour abnormality at the base and visible brachy therapy seeds); some mild adenopathy (12mm largest node) - uncertain how this compares to his prior imaging ([facility]) no new imaging since arrival afebrile, hemodynamically stable came to the ER because of notable lab abnormalities discovered by PCP as an outp t - not because of subjective complaints subjectively today - feels ok. constipation is biggest bother. no left flank pain, no right flank pain. no suprapubic pain - nephrostomy had some blood earlier this week - but nothing currently Allergies Allergy/AdvReac Type Severity Reaction Status Date / Time No Known Allergies Allergy Verified 08/11/22 17:17 Home Medications Medication Instructions Recorded Confirmed Type allopurinol 100 mg tablet 100 mg PO QAM 01/02/22 08/11/22 History atorvastatin 20 mg tablet 20 mg PO DAILY 01/02/22 08/11/22 History cinnamon bark 500 mg capsule 2,000 mg PO DAILY 01/02/22 08/11/22 History (Cinnamon) metformin 500 mg tablet,extended 500 mg PO DAILY 01/02/22 08/11/22 History release 24 hr omeprazole 20 mg capsule,delayed 20 mg PO DAILYBB 01/02/22 08/11/22 History release vitamin B complex 1 cap PO DAILY 01/02/22 08/11/22 History acetaminophen 500 mg tablet 1,000 mg PO TID PRN Pain 07/27/22 08/11/22 History (Tylenol Extra Strength) amlodipine 5 mg tablet 5 mg PO DAILY 07/27/22 08/11/22 History linagliptin 5 mg tablet (Tradjenta) 5 mg PO DAILY 07/27/22 08/11/22 History sodium chloride 0.9 % (flush) 10 ml intra-catheter BID 07/27/22 08/11/22 History thiamine HCl (vitamin B1) 50 mg 50 mg PO DAILY 07/27/22 08/11/22 History tablet Patient History Medical History Bladder cancer Chronic kidney disease (CKD), stage III (moderate) Diabetes mellitus DMII (diabetes mellitus, type 2) Dyslipidemia GERD (gastroesophageal reflux disease) Gout H/O prostate cancer HTN (hypertension) Melanoma Protein calorie malnutrition Surgical History H/O cystoscopy 12/2021 with fulguration of bladder tumor 11/2021 witth fulguration of bladder tumor H/O umbilical hernia repair History of mandibular surgery 1975 S/P urological surgery IR drainage catheter change right, 02/22 place percutaneous nephrostomy tube- [facility] Family History Brother Cancer Social History Smoking Status: Unknown if ever smoked Tobacco Type: Smokeless Tobacco (Dip or Chew) Hx Alcohol Use: No Hx Substance Use: No Preferred Language: Slovak Communication Ability: Effective Plating Engineer Required: No Beliefs That Will Affect Care: None Current Living Situation: Alone Other Information That Helps Us Care for You: No Feels Safe at Home: Yes Safety Concerns: Feels Safe At This Time Assistive Devices: None Physical Exam Physical Exam: mild pallor nephrostomy draining appropriately - clear, site healthy no left CVA tenderness bladder non-tender, not massively distended Constitutional: well developed and well nourished Respiratory: no respiratory distress Cardiovascular: Extremities: no pedal edema Gastrointestinal (Abdomen): Inspection/Auscultation: abdomen normal to inspection Results & Data Vital Signs (Past 12 Hours) Vital Signs Temp Pulse Pulse Resp BP Pulse Ox O2 Del Method 08/12/22 07:40 37.0 C 77 18 142/69 H 96 Room Air 08/12/22 07:31 85 08/12/22 04:03 37.6 C H 80 20 143/68 H 95 Room Air 08/11/22 23:30 37.3 C 91 H 18 156/79 H 98 Room Air 08/12/22 01:04 96 H 08/11/22 21:00 36.9 C 96 H 18 183/91 H 100 Room Air PG Care Time/CCT Total # of Minutes Spent Total Time Spent with Patient: Total time spent is greater than 50% in coordination of care (as documented) at patient's floor/unit and/or counseling patient: Coding Level of Care Code 29021 IN/OBS CONSULT LVL 4,60M Diagnoses Bladder cancer C67.9 Hydroureter N13.4 Complicated UTI (urinary tract infection) N39.0
--- NOTE | 2022-08-12 09:21 | Nephrology Consultation ---
Date of Consultation August 12, 2022 Assessment & Plan (1) Acute renal failure: Patient with acute kidney injury likely ischemic ATN in setting of possible infection. Patient has leukocytosis and suspected UTI. He is receiving ceftriaxone. Admission creatinine was 2.99. Creatinine downtrending to 2.7 today. Patient is planned for blood transfusion today. After after transfusion we can continue Plasma-Lyte for maintenance around 75 mL/h. -We will continue to monitor renal function with daily BMP. -Avoid nephrotoxins (2) Chronic kidney disease (CKD), stage III (moderate): Patient with CKD stage III due to obstructive uropathy in setting of bladder cancer. Baseline creatinine in the lower twos. Patient has a nephrostomy tube. He has been evaluated by urology for his chronic hydronephrosis bilaterally. They recommended conservative management and outpatient urology follow-up (3) Anemia: Patient with anemia of renal disease in setting of bladder cancer and CKD. Hemoglobin of 6.9 today. He will be transfused 1 unit today. History of Present Illness Reason for Consultation: Acute kidney injury on CKD Requesting Physician: Dr. He Attending Physician: Fer Scott MD History of Present Illness This is 71-year-old male with history of bladder cancer complicated by bilateral hydronephrosis status post right nephrostomy tube, prostate cancer status postradiotherapy type 2 diabetes, hypertension, gout and CKD stage III baseline creatinine in the lower twos who was admitted yesterday with abnormal labs on recommendation of PCP. Outpatient creatinine was 2.99 which was higher than his baseline. Patient received his Keytruda 4 days ago. His main complaint is weakness. He denies shortness of breath or leg swelling. He also reports gross hematuria in the nephrostomy bag few days ago but clear today. White count was 20,000. Patient is getting ceftriaxone for suspected UTI. Blood and urine cultures are pending. His hemoglobin is 6.9 this morning and blood transfusion is being planned. Creatinine slightly down to 2.7. He also has mild metabolic acidosis with bicarb of 19. Allergies Allergy/AdvReac Type Severity Reaction Status Date / Time No Known Allergies Allergy Verified 08/11/22 17:17 Home Medications Medication Instructions Recorded Confirmed Type allopurinol 100 mg tablet 100 mg PO QAM 01/02/22 08/11/22 History atorvastatin 20 mg tablet 20 mg PO DAILY 01/02/22 08/11/22 History cinnamon bark 500 mg capsule 2,000 mg PO DAILY 01/02/22 08/11/22 History (Cinnamon) metformin 500 mg tablet,extended 500 mg PO DAILY 01/02/22 08/11/22 History release 24 hr omeprazole 20 mg capsule,delayed 20 mg PO DAILYBB 01/02/22 08/11/22 History release vitamin B complex 1 cap PO DAILY 01/02/22 08/11/22 History acetaminophen 500 mg tablet 1,000 mg PO TID PRN Pain 07/27/22 08/11/22 History (Tylenol Extra Strength) amlodipine 5 mg tablet 5 mg PO DAILY 07/27/22 08/11/22 History linagliptin 5 mg tablet (Tradjenta) 5 mg PO DAILY 07/27/22 08/11/22 History sodium chloride 0.9 % (flush) 10 ml intra-catheter BID 07/27/22 08/11/22 History thiamine HCl (vitamin B1) 50 mg 50 mg PO DAILY 07/27/22 08/11/22 History tablet Patient History Medical History Bladder cancer Chronic kidney disease (CKD), stage III (moderate) Diabetes mellitus DMII (diabetes mellitus, type 2) Dyslipidemia GERD (gastroesophageal reflux disease) Gout H/O prostate cancer HTN (hypertension) Melanoma Protein calorie malnutrition Surgical History H/O cystoscopy 12/2021 with fulguration of bladder tumor 11/2021 witth fulguration of bladder tumor H/O umbilical hernia repair History of mandibular surgery 1975 S/P urological surgery IR drainage catheter change right, 02/22 place percutaneous nephrostomy tube- [facility] Family History Brother Cancer Social History Smoking Status: Unknown if ever smoked Tobacco Type: Smokeless Tobacco (Dip or Chew) Hx Alcohol Use: No Hx Substance Use: No Preferred Language: Lithuanian Communication Ability: Effective Panel Sewer Required: No Beliefs That Will Affect Care: None Current Living Situation: Alone Other Information That Helps Us Care for You: No Feels Safe at Home: Yes Safety Concerns: Feels Safe At This Time Assistive Devices: None Review of Systems Review of Systems: All other systems were reviewed and negative except as noted in HPI Physical Exam Physical Exam: General exam: Appears comfortable, no acute distress HEENT: Pupils are equal and reactive to light Neck: No JVD, neck is supple trachea is midline Respiratory system: Clear breath sounds bilaterally. Gastrointestinal: Abdomen is soft, non distended, non tender, bowel sounds are present CVS: Regular rate and rhythm. No murmurs, rubs or gallops Musculoskeletal: No joint or muscle tenderness Extremities: Non tender, no edema, peripheral pulses are present Neuro: Oriented, no tremors, no focal neurological deficits Skin: No rashes Results & Data Vital Signs (Past 12 Hours) Vital Signs Temp Pulse Pulse Resp BP Pulse Ox O2 Del Method 08/12/22 07:40 37.0 C 77 18 142/69 H 96 Room Air 08/12/22 07:31 85 08/12/22 04:03 37.6 C H 80 20 143/68 H 95 Room Air 08/11/22 23:30 37.3 C 91 H 18 156/79 H 98 Room Air 08/12/22 01:04 96 H Laboratory Results 08/12/22 06:18 08/11/22 08/11/22 08/12/22 15:47 15:47 06:18 WBC 25.82 H RBC 3.66 L MCV 76.0 L MCH 23.2 L MCHC 30.6 L RDW Std Deviation 56.2 H RDW Coeff of Krystal 20.4 H Plt Count 402 H MPV 8.3 L Phosphorus 3.8 Albumin 3.2 L 08/12/22 06:18 WBC 20.38 H RBC 2.87 L MCV 76.7 L MCH 24.0 L MCHC 31.4 L RDW Std Deviation 56.2 H RDW Coeff of Krystal 20.2 H Plt Count 318 MPV 8.2 L Phosphorus Albumin
[2022-08-12] MEDS: cefTRIAXone SODIUM 1,000 MG in DEXTROSE 5% AD-VAN 50 ML IV SCH (13:14)
--- NOTE | 2022-08-12 15:47 | Hospitalist Progress Note ---
Date of Service August 12, 2022 Assessment & Plan (1) GUSTAVO (acute kidney injury): (2) Chronic kidney disease (CKD), stage III (moderate): Plan 71-year-old male with PMH of bladder cancer on Keytruda and right hydronephrosis status post percutaneous nephroureteral tube placement, prostate cancer status post radiation, CKD, DM presented to the hospital 08/11 upon referral from PCP office for abnormal lab results/kidney evaluation. He was recently admitted and discharged on 07/31/2022 when he was treated for Klebsiella bacteremia with a complicated UTI. Few weeks ago [employer] he underwent IR guided right percutaneous nephroureteral tube check and exchange at [facility] following which he got UTI and bacteremia. He has completed antibiotic course [employer]. He is being managed for the following: Acute renal failure over CKD stage III: likely ischemic ATN in setting of possible infection. Suspected UTI Hematuria: new onset/intermittent occurence per pt, resolved as of AM of 08/12 per pt. Per outpatient chart review, baseline creatinine of 1.8-2.2. Recent admission for sepsis secondary to catheter associated UTI and Klebsiella bacteremia. He completed his antibiotic course [employer]. He presented with a feeling of rundown and has persistently elevated WBC and abnormal UA at presentation. No CVA tenderness at presentation. Patient has right nephrostomy tube in place. Follow-up repeat blood and urine culture. Admitting creatinine of 2.84. Concern for blockage and mass given ongoing bladder cancer with new onset hematuria. Urology evaluated, no acute intervention as of now. Continue with broad spectrum antibiotic pending culture results. Nephro on board, plasma lyte at 75 ml/hr and bmp in AM. Constipation: Patient uses narcotics for pain management, is on Keytruda which has known side effect of constipation. Bowel regimen. Reports poor appetite but states he is eating. Hyponatremia: Multifactorial.Chronic, stable. Complicated UTI (urinary tract infection): Abnormal UA at presentation. Recent infection was treated, however, given clinical decline and persistent groin pain (which also may be bladder tumor that persists, or constipation) will continue empiric antibiotics. f/u on admitting urine and blood culture. Anemia: multifactorial, complicated by hematuria/ckd/cancer treatment/cancer itself. Hb 6.9 today, transfusing 1 unit prbc, will monitor HnH. Bladder cancer: Under the care of Dr. Weiss and Dr. Calvo. Muscle invasive bladder cancer with no known metastases (T2N2M0) s/p bladder tumor fulguration in fall 2021, immunotherapy with Keytruda since 02/2022. Last Keytruda infusion was 08/10/22. Cont per outpatient specialists. Hydroureter: persistent, chronic. Right nephrostomy tube in place. Urology consulted to reassess - appreciate recs. Other chronic medical conditions: Resume home meds as able DMII (diabetes mellitus, type 2): chronic, poorly controlled as outpatient with A1C in June os 7.6. Hold metformin and trajenta and continue with ba lacy/bolus insulin. Gout: chronic, stable. Cont allopurinol. HTN (hypertension): chronic, stable. Cont amlodipine. Protein calorie malnutrition: 45 lb weight loss reported over the past 6 months. Weight is stable per his report for the time being. DVT prophylaxis: SCDs, DVT chemoprophy contraindicated given hematuria. CODE STATUS: Full code Dispo-to floor, PT/OT to evaluate Admission and Anticipated Discharge Date Admission Date: August 11, 2022 Subjective Patient seen and examined at bedside as a follow-up of anemia, acute renal failure over CKD, hematuria. Patient was lying in bed, on room air, NAD, reports no new acute event overnight, reports having bloody urine collection since last 2 days which cleared today per patient, reports eating okay and moving bowels okay. Patient denies fever/chills/headache/dizziness. Patient's blood level was/hemoglobin level was 6.9 today morning. Blood transfusion consent was obtained, will transfuse 1 unit PRBC and follow-up H&H trend. Physical Exam Physical Exam: GENERAL: Alert and oriented x3. NAD, on RA. HEENT: No pallor, no icterus. Pupils equal, round and reactive to light. Oral mucosa moist. NECK: No JVD, no neck masses. HEART: S1 and S2 heard. Regular rate and rhythm. No murmur, no gallop. RESPIRATORY SYSTEM: Normal AP diameter. No accessory muscle use. No wheezing, no crackles. ABDOMEN: Soft, bowel sounds present, nontender, no distention. Rt nephrostomy tube and bag noted, yellow urine collection noted. CENTRAL NERVOUS SYSTEM: No facial droop. Speech is clear. Obeys simple commands. Moves extremities. EXTREMITIES: No edema, no erythema seen. Results & Data Results & Data Vital Signs (Past 12 Hours) Vital Signs Temp Pulse Pulse Resp BP BP Pulse Ox 08/12/22 12:54 36.4 C L 75 18 118/61 98 08/12/22 11:13 36.8 C 81 18 114/61 97 08/12/22 10:43 37.0 C 77 18 120/63 97 08/12/22 10:28 36.9 C 81 18 125/63 97 08/12/22 10:08 36.9 C 93 H 18 118/69 97 08/12/22 07:40 37.0 C 77 18 142/69 H 96 08/12/22 07:31 85 08/12/22 04:03 37.6 C H 80 20 143/68 H 95 O2 Del Method 08/12/22 12:54 08/12/22 11:13 08/12/22 10:43 08/12/22 10:28 08/12/22 10:08 08/12/22 07:40 Room Air 08/12/22 07:31 08/12/22 04:03 Room Air
[2022-08-12 15:56] LABS: Hematocrit (blood only) 24.6 % (42.0-52.0); Hemoglobin 7.9 g/dl (14.0-18.0)
[2022-08-12] MEDS: PLASMA-LYTE A 1,000 ML IV SCH (16:13)
[2022-08-12] MEDS: SENNA 8.6 MG TAB PO SCH (21:06)
[2022-08-12 22:50] LABS: Hematocrit (blood only) 26.1 % (42.0-52.0); Hemoglobin 8.3 g/dl (14.0-18.0)
[2022-08-13] MEDS: PLASMA-LYTE A 1,000 ML IV SCH ×2 (05:37→18:11)
[2022-08-13] MEDS: PANTOprazole 40 MG TAB PO SCH (05:37)
[2022-08-13 07:05] LABS: Hematocrit (blood only) 24.8 % (42.0-52.0); Mean Corpuscular Hemoglobin 24.2 pg (25.0-34.0); Mean Corpuscular Hgb Conc 32.3 g/dL (32.0-36.0); Mean Corpuscular Volume 74.9 fL (80.0-100.0); Mean Platelet Volume 8.3 fL (9.4-12.4); Platelet Count 360 K/uL (130-400); RDW Coefficient of Variation 20.2 % (11.5-14.5); RDW Standard Deviation 55.5 fL (36.4-46.3); Red Blood Count 3.31 M/uL (4.70-6.10); White Blood Count 21.55 K/ul (4.8-10.8)
[2022-08-13 07:22] LABS: BUN Creatinine Ratio 19.9 (10-20); Calcium 8.8 mg/dl (8.6-10.3); Creatinine Clr Calc Pharmacy 23.5 ml/min; Est GFR (African American) 25.8 ml/min; Est GFR (Non-African American) 22.3 ml/min; Phosphorus 3.4 mg/dl (2.5-4.9); Potassium 3.8 mmol/L (3.5-5.1)
[2022-08-13] MEDS: amLODIPine BESYLATE 5 MG TAB PO SCH (08:21)
[2022-08-13] MEDS: VITAMIN B COMPLEX TAB PO SCH (08:21)
[2022-08-13] MEDS: allopurinoL 100 MG TAB PO SCH (08:21)
[2022-08-13] MEDS: ATORVASTATIN 20 MG TAB PO SCH (08:21)
[2022-08-13] MEDS: THIAMINE HCL 50 MG TABLET PO SCH (08:21)
[2022-08-13] MEDS: LANTUS PER UNIT CHARGE SQ SCH ×2 (08:28→20:48)
[2022-08-13] MEDS: INSULIN ASPART PER UNIT CHARGE SC SCH ×4 (08:29→20:49)
[2022-08-13] MEDS: POLYETHYLENE (MIRALAX) 17 GM PACK PO SCH ×3 (09:04→20:52)
--- NOTE | 2022-08-13 09:27 | Urology Progress Note ---
Date of Service August 13, 2022 Assessment & Plan (1) Bladder cancer: (2) Hydroureter: Plan Stable overnight from a standpoint See notes from yesterday for management recommendations, however I defer all urological decisions to his primary urology team as he is a very complex patient who has had extensive prior discussions about management and I do not wish to change his plan acutely please call if any new questions arise during this hospitalization Admission and Anticipated Discharge Date Admission Date: August 11, 2022 Subjective No major changes overnight Reports that he feels relatively well No further bowel movements No hematuria from his nephrostomy, no urethral voiding overnight Physical Exam Physical Exam: Urine in the nephrostomy bag clear, no left CVA tenderness No suprapubic tenderness Constitutional: well developed and well nourished Respiratory: no respiratory distress Cardiovascular: Extremities: no pedal edema Gastrointestinal (Abdomen): Inspection/Auscultation: abdomen normal to inspection Results & Data Vital Signs (Past 12 Hours) Vital Signs Temp Pulse Pulse Pulse Resp BP Pulse Ox 08/13/22 07:15 36.9 C 86 16 120/60 98 08/13/22 07:01 85 08/13/22 04:06 37.7 C H 87 20 149/70 H 97 08/13/22 00:43 88 08/12/22 23:31 37.5 C 89 20 138/74 97 08/12/22 21:28 O2 Del Method 08/13/22 07:15 Room Air 08/13/22 07:01 08/13/22 04:06 Room Air 08/13/22 00:43 08/12/22 23:31 Room Air 08/12/22 21:28 Room Air PG Care Time/CCT Total # of Minutes Spent Total Time Spent with Patient: Total time spent is greater than 50% in coordination of care (as documented) at patient's floor/unit and/or counseling patient: Coding Level of Care Code 69694 SUB INP/OBS CARE 04/12MIN Diagnoses Bladder cancer C67.9 Hydroureter N13.4
--- NOTE | 2022-08-13 11:46 | Nephrology Progress Note ---
Date of Service August 13, 2022 Assessment & Plan (1) Acute renal failure: Plan: Patient with acute kidney injury likely ischemic ATN in setting of possible infection. Patient has leukocytosis and suspected UTI. He is receiving ceftriaxone. Admission creatinine was 2.99. Creatinine stable at 2.7 today. This might be new baseline. Stop fluids after the current bottle is finished. Patient is interested in going home. From renal standpoint he can be discharged but will need to follow-up with nephrology outpatient -Avoid nephrotoxins (2) Chronic kidney disease (CKD), stage III (moderate): Plan: Patient with CKD stage III due to obstructive uropathy in setting of bladder cancer. Baseline creatinine in the lower twos. Patient has a nephrostomy tube. He has been evaluated by urology for his chronic hydronephrosis bilaterally. They recommended conservative management and outpatient urology follow-up (3) Anemia: Plan: Patient with anemia of renal disease in setting of bladder cancer and CKD. He is status post blood transfusion 1 unit yesterday Admission and Anticipated Discharge Date Admission Date: August 11, 2022 Subjective Seen for acute kidney on CKD. He is receiving IV fluids. Patient would like to go home. No shortness of breath. Review of Systems Review of Systems: All other systems were reviewed and negative except as noted in HPI Physical Exam Physical Exam: General exam: Appears comfortable, no acute distress HEENT: Pupils are equal and reactive to light Neck: No JVD, neck is supple trachea is midline Respiratory system: Clear breath sounds bilaterally. Gastrointestinal: Abdomen is soft, non distended, non tender, bowel sounds are present CVS: Regular rate and rhythm. No murmurs, rubs or gallops Musculoskeletal: No joint or muscle tenderness Extremities: Non tender, no edema, peripheral pulses are present Neuro: Oriented, no tremors, no focal neurological deficits Skin: No rashes Results & Data Vital Signs (Past 12 Hours) Vital Signs Temp Pulse Pulse Pulse Resp BP Pulse Ox 08/13/22 11:20 37.0 C 79 20 118/68 98 08/13/22 07:15 36.9 C 86 16 120/60 98 08/13/22 07:01 85 08/13/22 04:06 37.7 C H 87 20 149/70 H 97 08/13/22 00:43 88 O2 Del Method 08/13/22 11:20 Room Air 08/13/22 07:15 Room Air 05/28/23 07:01 08/13/22 04:06 Room Air 08/13/22 00:43 Laboratory Results 08/13/22 06:21 08/13/22 08/13/22 06:21 06:21 WBC 21.55 H RBC 3.31 L MCV 74.9 L MCH 24.2 L MCHC 32.3 RDW Std Deviation 55.5 H RDW Coeff of Krystal 20.2 H Plt Count 360 MPV 8.3 L Phosphorus 3.4
[2022-08-13] MEDS: cefTRIAXone SODIUM 1,000 MG in DEXTROSE 5% AD-VAN 50 ML IV SCH (12:45)
--- NOTE | 2022-08-13 14:48 | Hospitalist Progress Note ---
Date of Service August 13, 2022 Assessment & Plan (1) GUSTAVO (acute kidney injury): (2) Chronic kidney disease (CKD), stage III (moderate): Plan 71-year-old male with PMH of bladder cancer on Keytruda and right hydronephrosis status post percutaneous nephroureteral tube placement, prostate cancer status post radiation, CKD, DM presented to the hospital 08/11 upon referral from PCP office for abnormal lab results/kidney evaluation. He was recently admitted and discharged on 07/31/2022 when he was treated for Klebsiella bacteremia with a complicated UTI. Few weeks ago [employer] he underwent IR guided right percutaneous nephroureteral tube check and exchange at [facility] following which he got UTI and bacteremia. He has completed antibiotic course [employer]. He is being managed for the following: Acute renal failure over CKD stage III: likely ischemic ATN in setting of possible infection. Suspected UTI Hematuria: new onset/intermittent occurence per pt, resolved as of AM of 08/12 per pt. Per outpatient chart review, baseline creatinine of 1.8-2.2. Recent admission for sepsis secondary to catheter associated UTI and Klebsiella bacteremia. He completed his antibiotic course [employer]. He presented with a feeling of rundown and has persistently elevated WBC and abnormal UA at presentation. No CVA tenderness at presentation. Patient has right nephrostomy tube in place. Follow-up repeat blood and urine culture - UCx contaminated, no gr 24 hours for blood Cx. Admitting creatinine of 2.84. around 2.7 today, this might be his new baseline, d/w nephro - close f/ u w/ nephro on DC. Urology evaluated, no acute intervention as of now. Continue with broad spectrum antibiotic pending culture results. Nephro on board, appreciate recs. Constipation: Patient uses narcotics for pain management, is on Keytruda which has known side effect of constipation. Bowel regimen. Reports poor appetite but states he is eating. Hyponatremia: Multifactorial.Chronic, stable. Complicated UTI (urinary tract infection): Abnormal UA at presentation. Recent infection was treated, however, given clinical decline and persistent groin pain (which also may be bladder tumor that persists, or constipation) will continue empiric antibiotics. f/u on admitting blood culture. Pt reports improvement in his s/s at presentation, will likely complete the course of atb at this time. Anemia: multifactorial, complicated by hematuria/ckd/cancer treatment/cancer itself. Hb 6.9 on 08/12, transfused 1 unit prbc, will monitor HnH. HnH stable. Bladder cancer: Under the care of Dr. Weiss and Dr. Calvo. Muscle invasive bladder cancer with no known metastases (T2N2M0) s/p bladder tumor fulguration in fall 2021, immunotherapy with Keytruda since 02/2022. Last Keytruda infusion was 08/10/22. Cont per outpatient specialists. Hydroureter: persistent, chronic. Right nephrostomy tube in place. Urology consulted to reassess - appreciate recs. f/u uro as OP. Other chronic medical conditions: Resume home meds as able DMII (diabetes mellitus, type 2): chronic, poorly controlled as outpatient with A1C in June os 7.6. Hold metformin and Tradjenta and continue with basal/bolus insulin. Gout: chronic, stable. Cont allopurinol. HTN (hypertension): chronic, stable. Cont amlodipine. Protein calorie malnutrition: 45 lb weight loss reported over the past 6 months. Weight is stable per his report for the time being. DVT prophylaxis: SCDs, DVT chemoprophy contraindicated given hematuria. CODE STATUS: Full code Dispo-to floor, PT/OT to evaluate, likely dc silvia. Admission and Anticipated Discharge Date Admission Date: August 11, 2022 Subjective Patient seen and examined at bedside as a follow-up of anemia, acute renal failure over CKD, hematuria. Patient was lying in bed, on room air, NAD, reports no new acute event overnight, reports having bloody urine collection since last 2 days [employer] which cleared 08/12 am per patient, reports eating okay and moving bowels okay. Patient denies fever/chills/headache/dizziness. Pt reports slowly feeling better. Patient's blood level was/hemoglobin level was 6.9 08/12 morning. s/p 1 unit prbc 08/12, Hb has been stable. Physical Exam Physical Exam: GENERAL: Alert and oriented x3. NAD, on RA. HEENT: No pallor, no icterus. Pupils equal, round and reactive to light. Oral mucosa moist. NECK: No JVD, no neck masses. HEART: S1 and S2 heard. Regular rate and rhythm. No murmur, no gallop. RESPIRATORY SYSTEM: Normal AP diameter. No accessory muscle use. No wheezing, no crackles. ABDOMEN: Soft, bowel sounds present, nontender, no distention. Rt nephrostomy tube and bag noted, yellow urine collection noted. CENTRAL NERVOUS SYSTEM: No facial droop. Speech is clear. Obeys simple commands. Moves extremities. EXTREMITIES: No edema, no erythema seen. Results & Data Results & Data Vital Signs (Past 12 Hours) Vital Signs Temp Pulse Pulse Pulse Resp BP Pulse Ox 08/13/22 11:20 37.0 C 79 20 118/68 98 08/13/22 07:15 36.9 C 86 16 120/60 98 08/13/22 07:01 85 08/13/22 04:06 37.7 C H 87 20 149/70 H 97 O2 Del Method 08/13/22 11:20 Room Air 08/13/22 07:15 Room Air 08/13/22 07:01 08/13/22 04:06 Room Air
[2022-08-13 20:20] LABS: Hemoglobin 7.6 g/dl (14.0-18.0)
[2022-08-13] MEDS: SENNA 8.6 MG TAB PO SCH (20:51)
--- NOTE | 2022-08-13 21:59 | Communication Note ---
Date of Service: August 13, 2022 Made aware by RN of blood clots in patient's [place] drainage. Patient without unusual flank/abdominal pain. AP Painless hematuria H&H now Transfuse PRBC if hemoglobin less than 7 and or for symptomatic anemia.
[2022-08-14] MEDS: PANTOprazole 40 MG TAB PO SCH (06:01)
[2022-08-14] MEDS: PLASMA-LYTE A 1,000 ML IV SCH (07:34)
[2022-08-14 07:57] LABS: Basophils # (auto) 0.16 K/uL (0-0.2); Basophils % (auto) 0.7 %; Eosinophils # (auto) 0.31 K/uL (0-0.50); Eosinophils % (auto) 1.4 %; Hematocrit (blood only) 26.2 % (42.0-52.0); Hemoglobin 8.2 g/dl (14.0-18.0); Immature Granulocytes # (auto) 0.14 K/uL (0.01-0.20); Immature Granulocytes % (auto) 0.7 %; Lymphocytes # (auto) 2.76 K/uL (1.2-3.4); Lymphocytes % (auto) 12.9 %; Mean Corpuscular Hemoglobin 24.3 pg (25.0-34.0); Mean Corpuscular Hgb Conc 31.3 g/dL (32.0-36.0); Mean Corpuscular Volume 77.5 fL (80.0-100.0); Mean Platelet Volume 8.1 fL (9.4-12.4); Monocytes # (auto) 1.08 K/uL (0.11-0.59); Neutrophils # (auto) 16.95 K/uL (1.40-6.50); Neutrophils % (auto) 79.3 %; Platelet Count 345 K/uL (130-400); RDW Coefficient of Variation 20.5 % (11.5-14.5); RDW Standard Deviation 57.8 fL (36.4-46.3); Red Blood Count 3.38 M/uL (4.70-6.10)
[2022-08-14 08:14] LABS: Anisocytosis Present; Polychromasia 1+
[2022-08-14 08:26] LABS: BUN Creatinine Ratio 19.4 (10-20); Calcium 8.8 mg/dl (8.6-10.3); Creatinine Clr Calc Pharmacy 23.8 ml/min; Est GFR (African American) 26.2 ml/min; Est GFR (Non-African American) 22.6 ml/min; Potassium 3.9 mmol/L (3.5-5.1)
[2022-08-14] MEDS: VITAMIN B COMPLEX TAB PO SCH (08:45)
[2022-08-14] MEDS: amLODIPine BESYLATE 5 MG TAB PO SCH (08:45)
[2022-08-14] MEDS: ATORVASTATIN 20 MG TAB PO SCH (08:46)
[2022-08-14] MEDS: allopurinoL 100 MG TAB PO SCH (08:46)
[2022-08-14] MEDS: THIAMINE HCL 50 MG TABLET PO SCH (08:46)
[2022-08-14] MEDS: LANTUS PER UNIT CHARGE SQ SCH (08:50)
[2022-08-14] MEDS: POLYETHYLENE (MIRALAX) 17 GM PACK PO SCH (08:51)
[2022-08-14] MEDS: INSULIN ASPART PER UNIT CHARGE SC SCH (08:51)
--- NOTE | 2022-08-14 09:35 | Nephrology Progress Note ---
Date of Service August 14, 2022 Assessment & Plan (1) Acute renal failure: Plan: Patient with acute kidney injury likely ischemic ATN in setting of possible infection. Patient has leukocytosis and suspected UTI. He is receiving ceftriaxone. Admission creatinine was 2.99. Creatinine stable at 2.7 today. This might be new baseline. Stop fluids. Patient is interested in going home. -From renal standpoint he can be discharged but will need to follow-up with n ephrology outpatient -Avoid nephrotoxins (2) Chronic kidney disease (CKD), stage III (moderate): Plan: Patient with CKD stage III due to obstructive uropathy in setting of bladder cancer. Baseline creatinine in the lower twos. Patient has a nephrostomy tube. He has been evaluated by urology for his chronic hydronephrosis bilaterally. They recommended conservative management and outpatient urology follow-up (3) Anemia: Plan: Patient with anemia of renal disease in setting of bladder cancer and CKD. He is status post blood transfusion 1 unit. Admission and Anticipated Discharge Date Admission Date: August 11, 2022 Subjective Seen for acute kidney injury on CKD. No shortness of breath. He had episode of slight hematuria which is again resolved this morning Review of Systems Review of Systems: All other systems were reviewed and negative except as noted in HPI Physical Exam Physical Exam: General exam: Appears comfortable, no acute distress HEENT: Pupils are equal and reactive to light Neck: No JVD, neck is supple trachea is midline Respiratory system: Clear breath sounds bilaterally. Gastrointestinal: Abdomen is soft, non distended, non tender, bowel sounds are present CVS: Regular rate and rhythm. No murmurs, rubs or gallops Musculoskeletal: No joint or muscle tenderness Extremities: Non tender, no edema, peripheral pulses are present Neuro: Oriented, no tremors, no focal neurological deficits Skin: No rashes Results & Data Vital Signs (Past 12 Hours) Vital Signs Temp Pulse Pulse Resp BP Pulse Ox O2 Del Method 08/14/22 08:15 37.0 C 92 H 20 147/70 H 96 Room Air 08/14/22 07:11 94 H 08/14/22 00:40 85 08/13/22 23:26 37.7 C H 89 20 149/74 H 96 Room Air Laboratory Results 08/14/22 07:31 08/14/22 07:31 WBC 21.40 H RBC 3.38 L MCV 77.5 L MCH 24.3 L MCHC 31.3 L RDW Std Deviation 57.8 H RDW Coeff of Krystal 20.5 H Plt Count 345 MPV 8.1 L
--- NOTE | 2022-08-14 11:54 | Discharge Summary ---
Date of Service August 14, 2022 Admission HPI Per Admitting Provider 71-year-old patient with history of bladder cancer on Keytruda and right hydronephrosis status post percutaneous nephroureteral tube placement prostate cancer postradiation CKD and diabetes presents as a referral from PCP office for abnormal lab results. PCP told him to get fluids and have kidneys evaluated. He was recently admitted to the hospital and discharged on 07/31/22 found to have Klebsiella bacteremia with a complicated UTI. Few weeks ago he underwent IR guided right percutaneous nephroureteral tube check and exchange at [facility]. He had developed flank discomfort and blood in the urine postprocedure with chills following this which turned into sepsis with gram- negative bacteremia. During the last admission infectious disease saw him and recommended continuation with cefepime and vancomycin as well as oral metronidazole. This was tapered to ciprofloxacin for total of 14 days at discharge. He also saw urology during the last hospital stay. Repeat CT of the abdomen pelvis at that time revealed no evidence of abscess with right nephrostomy tube and nephroureteral stent intact, unchanged left hydroureter and a redemonstration of the irregular masslike density in the bladder. No additional interventions were recommended at that time. Today he reports feeling weak, tired, feeling run down, constipated, intermittent groin pain likely related the constipation. Feels that flushing his nephrostomy tube twice daily gives him more relief, meaning he feels less urgency to void No appetite but weight is holding steady and he is eating. Dr Calvo is his urologist. urine in bag turned purple yesterday and is reportedly red today He wouldn't show me the bag because he had tight jeans on. Admission Exam Per Admitting Provider CONSTITUTIONAL: thin, vitals as above, generally well-appearing, NAD EYES: normal conjunctivae, no scleral icterus ENT: external ear and nose normal, oropharynx clear, MMM NECK: trachea midline RESPIRATORY: clear to auscultation bilaterally, no crackles, rales or wheezes, normal respiratory effort CARDIOVASCULAR: regular rate and rhythm, S1 and 2 heard without murmurs, gallops or rubs, no JVD, no peripheral edema CHEST: inspection of chest was normal GASTROINTESTINAL: soft, nontender, ND, no guarding MUSCULOSKELETAL: strength 5/5 throughout, head is normocephalic and atraumatic SKIN: warm and dry, posterior insertion of right nephrostomy tube. No surrounding redness or drainage present. NEUROLOGIC: CN 2-12 grossly intact, no sensory deficit, normal cognition, normal speech, no tremor PSYCHIATRIC: alert cooperative and oriented to person, place and time. Euthymic mood, makes good eye contact, language grossly intact, recent and remote memory grossly intact. Principal Diagnosis Acute renal failure over CKD stage III Suspected UTI Hematuria Constipation Discharge Exam GENERAL: Alert and oriented x3. NAD, on RA. HEENT: No pallor, no icterus. Pupils equal, round and reactive to light. Oral mucosa moist. NECK: No JVD, no neck masses. HEART: S1 and S2 heard. Regular rate and rhythm. No murmur, no gallop. RESPIRATORY SYSTEM: Normal AP diameter. No accessory muscle use. No wheezing, no crackles. ABDOMEN: Soft, bowel sounds present, nontender, no distention. Rt nephrostomy tube and bag noted, yellow urine collection noted. CENTRAL NERVOUS SYSTEM: No facial droop. Speech is clear. Obeys simple commands. Moves extremities. EXTREMITIES: No edema, no erythema seen. Discharge Data Allergies Allergy/AdvReac Type Severity Reaction Status Date / Time No Known Allergies Allergy Verified 08/11/22 17:17 Consultations 08/11/22 16:52 ED Decision to Admit Stat 08/11/22 17:27 Consult Urology Routine 08/11/22 21:26 Consult Nephrology Routine Hospital Course (1) GUSTAVO (acute kidney injury): (2) Chronic kidney disease (CKD), stage III (moderate): Plan 71-year-old male with PMH of bladder cancer on Keytruda and right hydronephrosis status post percutaneous nephroureteral tube placement, prostate cancer status post radiation, CKD, DM presented to the hospital 08/11 upon referral from PCP office for abnormal lab results/kidney evaluation. He was recently admitted and discharged on 07/31/2022 when he was treated for Klebsiella bacteremia with a complicated UTI. 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 following which he got UTI and bacteremia. 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 He was managed for the following: Acute renal failure over CKD stage III: likely ischemic ATN in setting of possible infection. Suspected UTI Hematuria: new onset/intermittent occurence per pt, resolved, uro recommends conservative Mx and OP f/u. Pt aware. Per outpatient chart review, baseline creatinine of 1.8-2.2. Recent admission for sepsis secondary to catheter associated UTI and Klebsiella bacteremia. 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 He presented with a feeling of rundown and has persistently elevated WBC and abnormal UA at presentation. No CVA tenderness at presentation. Patient has right nephrostomy tube in place. Follow-up repeat blood and urine culture - UCx contaminated, no gr 24 hours for blood Cx. Admitting creatinine of 2.84. around 2.68 today, this might be his new baseline, nephro on board - close f/ u w/ nephro on DC. Urology evaluated, no acute intervention as of now. f/u uro as OP. Pt aware. To complete atb course for suspected uti on dc. Constipation: Patient uses narcotics for pain management, is on Keytruda which has known side effect of constipation. Bowel regimen. Reports poor appetite but states he is eating. Pt advised to use OTC laxatives when needed. Hyponatremia: Multifactorial.Chronic, stable. Complicated UTI (urinary tract infection): Abnormal UA at presentation. Recent infection was treated, however, given clinical decline and persistent groin pain (which also may be bladder tumor that persists, or constipation) will continue empiric antibiotics. f/u on admitting blood culture. Pt reports improvement in his s/s at presentation, will likely complete the course of atb at this time. Anemia: multifactorial, complicated by hematuria/ckd/cancer treatment/cancer itself. Hb 6.9 on 08/12, transfused 1 unit prbc, will monitor HnH. HnH stable. Bladder cancer: Under the care of Dr. Weiss and Dr. Calvo. Muscle invasive bladder cancer with no known metastases (T2N2M0) s/p bladder tumor fulguration in fall 2021, immunotherapy with Keytruda since 02/2022. Last Keytruda infusion was 08/10/22. Cont per outpatient specialists. Hydroureter: persistent, chronic. Right nephrostomy tube in place. Urology consulted to reassess - appreciate recs. f/u uro as OP. Other chronic medical conditions: Resume home meds as able DMII (diabetes mellitus, type 2): chronic, poorly controlled as outpatient with A1C in June os 7.6. Hold metformin and Tradjenta and continue with basal/bolus insulin. Gout: chronic, stable. Cont allopurinol. HTN (hypertension): chronic, stable. Cont amlodipine. Protein calorie malnutrition: 45 lb weight loss reported over the past 6 months. Weight is stable per his report for the time being. DVT prophylaxis: SCDs, DVT chemoprophy contraindicated given hematuria. CODE STATUS: Full code Patient being discharged home with following instruction at the point of discharge: Follow-up with your primary care physician within a week time and likely you will need labs CBC/CMP/magnesium/phosphorus. Urology evaluated you for your hematuria and ongoing urological problems, follow-up with urology in 1 to 2 weeks time upon discharge. Follow-up with your kidney doctor in 2 to 3 weeks time upon discharge. For your constipation, you can use [id number] laxatives as needed. Follow-up with your outpatient cancer doctor as prior. For concern of your UTI, you will be prescribed antibiotic course to complete the course for UTI. Take your medications as prescribed. Please make sure that you are able to get your medications today by calling your pharmacy before you leave the hospital so that your treatment continuity is not broken. Home Health Attestation I certify that this patient is under my care and that I, or a physicians retail assistant store manager working with me, had a face to-face encounter that meets the home health [id number] encounter requirements with this patient. The encounter with the patient was in whole, or in part, for the following medical condition, which is the primary reason for home health care (list medical condition): I certify that, based on my findings, the following services are medically necessary home health services: My clinical findings support the need for the above services because: Further, I certify that my clinical findings support that this patient is homebound (i.e. absences from home require considerable and taxing effort and are for medical reasons or anabaptist services or infrequently or of short duration when for other reasons) because: Certification for Home Health Services: Based on the above findings, I certify that this patient is confined to the home and needs intermittent usp care, physical therapy and/or speech therapy or continues to need occupational therapy. The patient is under my care, and I have initiated the establishment of the plan of care. This patient will be followed by a physician who will periodically review the plan of care. Total Time Total Time Spent Total Time Spent (In Minutes): 45 Discharge Plan Discharge Items Patient Disposition: Home - Self-Care Reason For Visit: ACUTE ON CHRONIC KIDNEY FAILURE Discharge Diagnosis: Acute renal failure over CKD stage III Suspected UTI Hematuria Constipation Activity: Resume your previous activity Non-emergency contact: Primary Care Provider Call non-emergency contact if: you have any medication questions, your symptoms worsen, your pain is not controlled and your temperature is above 101 Follow-up/Referrals: Carlitos Chaparro MD [Primary Care Provider] - Diet: Carb Consistent or DM2 Addtl Attending Provider Instructions: Follow-up with your primary care physician within a week time and likely you will need labs CBC/CMP/magnesium/phosphorus. Urology evaluated you for your hematuria and ongoing urological problems, follow-up with urology in 1 to 2 weeks time upon discharge. Follow-up with your kidney doctor in 2 to 3 weeks time upon discharge. For your constipation, you can use [id number] laxatives as needed. Follow-up with your outpatient cancer doctor as prior. For concern of your UTI, you will be prescribed antibiotic course to complete the course for UTI. Take your medications as prescribed. Please make sure that you are able to get your medications today by calling your pharmacy before you leave the hospital so that your treatment continuity is not broken. Pending Studies at Discharge: Yes (Final results of your blood culture.) Stand-Alone Forms: [facility] [employer], Smoking Cessation Medications and DC Order Prescriptions: New cephalexin 500 mg tablet 500 mg PO Q8H 4 Days Qty: 12 0RF Probiotic 3 billion cell capsule 3,000 mmu cells PO DAILY 7 Days Qty: 7 0RF Rx Instructions: administer with a meal Continued metformin 500 mg tablet extended release 24 hr 500 mg PO DAILY Rx Instructions: PER PT "STOPPED THIS MED". allopurinol 100 mg tablet 100 mg PO QAM omeprazole 20 mg capsule,delayed release(DR/EC) 20 mg PO DAILYBB atorvastatin 20 mg tablet 20 mg PO DAILY vitamin B complex Capsule 1 cap PO DAILY cinnamon bark [Cinnamon] 500 mg Capsule 2,000 mg PO DAILY amlodipine 5 mg Tablet 5 mg PO DAILY acetaminophen [Tylenol Extra Strength] 500 mg Tablet 1,000 mg PO TID PRN (Reason: Pain) thiamine HCl (vitamin B1) 50 mg Tablet 50 mg PO DAILY sodium chloride 0.9 % (flush) Syringe 10 ml intra-catheter BID Tradjenta 5 mg Tablet 5 mg PO DAILY Discharge Orders: Discharge Order (Routine); Ordered 08/14/22 Ordered By: Fer Scott Admission Data Admit Date/Time: 08/11/22 17:26 Attending Provider: Fer Scott Admit Provider: Cristine He Primary Care Provider: Carlitos Chaparro Other Providers: Andrea De La Torre ; Cristine He ; Reggie Orr Other Interventions: Discharge Summary Assessment (RN) Last Done: 08/14/22 11:41
[2022-08-14] MEDS: cefTRIAXone SODIUM 1,000 MG in DEXTROSE 5% AD-VAN 50 ML IV SCH (12:02)
== END 2022-08-14 13:15 | disposition home or self-care (01) | DRG 689 ==
LOC: ED 15:31 → SUATTDRO 17:26 → 2N 17:26

== ENCOUNTER 2022-08-18 15:01 | Inpatient (IN) ==
[2022-08-18] MEDS ORDERED: SODIUM CHLORIDE 0.9% 500 ML IV STA (15:55)
[2022-08-18] MEDS ORDERED: MoRPHine SULFATE 4 MG/ML 1 ML CARP\\VIAL IV STA (15:55)
[2022-08-18] MEDS ORDERED: ONDANSETRON INJ 2 MG/ML 2 ML VIAL IV STA (15:55)
--- NOTE | 2022-08-18 16:09 | Emergency Department Note ---
Impression & Plan Bilateral flank pain, Hydronephrosis, Acute urinary retention, Obstructed nephrostomy tube ED Provider Note NAME: CONNIE MENESES AGE: 71 SEX: M : 1950 ARRIVES VIA: Walk-In INFORMANT: [Patient] ED PROVIDER(S): [Fazal Milan MD] CHIEF COMPLAINT: Flank pain HISTORY OF PRESENT ILLNESS: The patient is a 71-year-old male who had a right nephrostomy tube placed last February. He states it was last exchanged in early June, 2 months ago. The patient states that in the last 24 or so hours, he has noticed increasing flank pain and there has been some leakage of urine at the nephrostomy and tube connection site. He thinks the drainage tube may be clogged. He is still having some urine draining into the catheter bag. The patient also complains of constipation. He has dealt with this for some time. He has not had fever, chills, cough or congestion. He does not have any abdominal pain. The patient states that he has 2 pills left of antibiotic for a recent UTI. PMHx/PSHx: See Below SOCIAL HISTORY: See Below. PHYSICAL EXAM: GENERAL: Patient is in mild distress from pain. HEENT: No acute trauma, normocephalic atraumatic, mucous membranes moist, no nasal congestion. NECK: No stridor, no adenopathy, no meningismus, trachea is midline. LUNGS: Clear to auscultation bilaterally, no wheeze, no rhonchi, breath sounds equal. HEART: Without murmurs gallops or rubs, regular rate and rhythm. ABDOMEN: Soft, no peritonitis, no obvious abdominal distention. EXTREMITIES: No cyanosis or edema, full range of motion of all the joints without pain or difficulty, no signs for acute trauma. NEUROLOGIC: Oriented x 3, no acute motor or sensory deficits, no focal weakness. SKIN: No rash, no jaundice, no diaphoresis. Back: The patient has nephrostomy tube on the right. The insertion site looks without signs of infection, there is no leakage. There does seem to be some leakage of urine at the connection between the nephrostomy tube itself and the tube draining into his leg bag. There is significant debris in the drainage tube. There is some orange to yellow urine in the leg bag. DIFFERENTIAL DIAGNOSIS: Hydronephrosis, clogged nephrostomy tube, UTI, constipation, dehydration, electrolyte imbalance, among others. EMERGENCY DEPARTMENT COURSE/PROCEDURES: Prior/Outside records reviewed: Recent discharge summary. MEDICAL DECISION MAKING: There is a significant leukocytosis at 24,000, this has been documented before and seems baseline for the patient. The patient was anemic with a hemoglobin of 8.5, this is baseline for the patient. There is a normal platelet count. Sodium is low at 129. The patient has a history of a lower sodium. Creatinine was elevated at 2.54, this is baseline for the patient. Alk phos slightly elevated, the remaining liver enzymes were unremarkable. No evidence for pancreatitis. Urinalysis is suggestive of infection versus some contamination. Yeast was seen. No bacteria noted. COVID test returned negative. Abdominal and pelvis CT shows chronic findings of malignancy and urinary retention and urinary extravasation in the pelvis. Worsening hydronephrosis was seen. On exam, the patient appeared uncomfortable. There was minimal drainage in his nephrostomy bag. The patient had his nephrostomy tubing changed. This did not improve his draina ge. He then had the nephrostomy tube irrigated with really no improvement in the drainage. He was quite uncomfortable. He was ordered for IV saline, 1 L in total. He was ordered for IV morphine and IV Zofran for pain and nausea control. I did speak with Dr. Gregory of urology here at [facility]. He suggested attempting a Nash catheter. This was placed successfully and about 1400 cc of bloody urine drained. The patient felt markedly improved. I spoke with Dr. Pinto as well as Dr. Euceda at [facility]. Dr. Pinto was the urologist on-call. Dr. Euceda was the hospitalist. There are no beds currently available at [facility]. As the patient has had relief with the Nash catheter, emergent transfer was not felt warranted. The patient can be watched here in our hospital to ensure continued improvement in his hydronephrosis and to ensure stability of his creatinine. If he continues to do well, he can be discharged with the Nash catheter in place to have his nephrostomy tube changed electively early next week. If things worsen, he at that point may qualify for emergent transfer to [facility] for a more emergent nephrostomy exchange. The patient was happy with this plan. He was feeling markedly better after the Nash was placed. I did speak with case management, the on-call hospitalist was consulted. DISPOSITION: Patient's presentation and findings warrant a hospital stay. Past Med/Surg History Medical History Bladder cancer Chronic kidney disease (CKD), stage III (moderate) Diabetes mellitus DMII (diabetes mellitus, type 2) Dyslipidemia GERD (gastroesophageal reflux disease) Gout H/O prostate cancer HTN (hypertension) Melanoma Protein calorie malnutrition Surgical History H/O cystoscopy 12/2021 with fulguration of bladder tumor 11/2021 witth fulguration of bladder tumor H/O umbilical hernia repair History of mandibular surgery 1975 S/P urological surgery IR drainage catheter change right, 02/22 place percutaneous nephrostomy tube- GL Family History Brother Cancer Social History Smoking Status: Never smoker Tobacco Type: Smokeless Tobacco (Dip or Chew) Hx Alcohol Use: No Hx Substance Use: No Preferred Language: Czech Communication Ability: Effective Sports Media Required: No Beliefs That Will Affect Care: None Current Living Situation: Alone Feels Safe at Home: Yes Assistive Devices: None Allergies Allergies Allergy/AdvReac Type Severity Reaction Status Date / Time No Known Allergies Allergy Verified 08/18/22 22:07 Home Meds Home Medications Medication Instructions Recorded Confirmed allopurinol 100 mg tablet 100 mg PO QAM 01/02/22 08/18/22 cinnamon bark 500 mg capsule 2,000 mg PO DAILY 01/02/22 08/18/22 (Cinnamon) omeprazole 20 mg capsule,delayed 20 mg PO DAILYBB 01/02/22 08/18/22 release vitamin B complex 1 cap PO DAILY 01/02/22 08/18/22 acetaminophen 500 mg tablet 1,000 mg PO TID PRN Pain 07/27/22 08/18/22 (Tylenol Extra Strength) amlodipine 5 mg tablet 5 mg PO DAILY 07/27/22 08/18/22 linagliptin 5 mg tablet (Tradjenta) 5 mg PO DAILY 07/27/22 08/18/22 sodium chloride 0.9 % (flush) 10 ml intra-catheter BID 07/27/22 08/18/22 thiamine HCl (vitamin B1) 50 mg 50 mg PO DAILY 07/27/22 08/18/22 tablet ciprofloxacin HCl 500 mg tablet 500 mg PO TID 08/18/22 08/18/22 (Cipro) Previous Rx's Medication Instructions Recorded lactobacillus combination no.4 3 3,000 mmu cells PO DAILY 7 days #7 08/14/22 billion cell capsule (Probiotic) caps Results & Data (ED) Vital Signs Vital Signs - 24 hr 08/18/22 15:02 08/18/22 17:41 08/18/22 20:26 Temperature 36.5 C Temperature Source Temporal Artery Scan Pulse Rate 72 101 H Pulse Rate [Apical] 86 Pulse Rhythm [Apical] Pulse Strength [Apical] Respiratory Rate 20 18 Respiratory Effort / Characteristics Non-Labored Non-Labored Respiratory Depth Normal Normal Respiratory Pattern Blood Pressure 134/72 Blood Pressure [Right Arm] 142/73 H Blood Pressure Mean 92 Blood Pressure Mean [Right Arm] 96 Blood Pressure Position [Right Arm] Pulse Oximetry 99 99 Oxygen Delivery Method Room Air Room Air Sepsis Recent Fever Within 48 Hours No Sepsis New/Unexplained Change in Mental Status N/A Sepsis Action Taken by Nursing No Action Required 08/18/22 21:01 Temperature 36.4 C L Temperature Source Oral Pulse Rate Pulse Rate [Apical] 92 H Pulse Rhythm [Apical] Regular Pulse Strength [Apical] Normal Respiratory Rate 18 Respiratory Effort / Characteristics Non-Labored Spontaneous Respiratory Depth Normal Respiratory Pattern Regular Blood Pressure Blood Pressure [Right Arm] 164/84 H Blood Pressure Mean Blood Pressure Mean [Right Arm] 110 Blood Pressure Position [Right Arm] Lying Pulse Oximetry 98 Oxygen Delivery Method Room Air Sepsis Recent Fever Within 48 Hours Sepsis New/Unexplained Change in Mental Status Sepsis Action Taken by Shelter Medications Current Medication List: was personally reviewed by me Laboratory Data Attestation: I reviewed the patient's lab results. 08/18/22 15:56 08/18/22 15:56 Lab Results 08/18/22 08/18/22 08/18/22 Range/Units 15:56 15:56 18:40 WBC 24.73 H (4.8-10.8) K/ul RBC 3.56 L (4.70-6.10) M/uL Hgb 8.5 L (14.0-18.0) g/dl Hct 27.7 L (42.0-52.0) % MCV 77.8 L (80.0-100.0) fL MCH 23.9 L (25.0-34.0) pg MCHC 30.7 L (32.0-36.0) g/dL RDW Std Deviation 57.1 H (36.4-46.3) fL RDW Coeff of Krystal 20.0 H (11.5-14.5) % Plt Count 358 (130-400) K/uL MPV 8.1 L (9.4-12.4) fL Immature Gran % (Auto) 0.8 % Neut % (Auto) 85.5 % Lymph % (Auto) 8.1 % Gilpin % (Auto) 4.2 % Eos % (Auto) 0.6 % Baso % (Auto) 0.8 % Neut # (Auto) 21.14 H (1.40-6.50) K/uL Lymph # (Auto) 2.00 (1.2-3.4) K/uL Gilpin # (Auto) 1.04 H (0.11-0.59) K/uL Eos # (Auto) 0.15 (0-0.50) K/uL Baso # (Auto) 0.20 (0-0.2) K/uL Immature Gran # (Auto) 0.20 (0.01-0.20) K/uL Polychromasia 1+ Anisocytosis Present Sodium 129 L (136-145) mmol/L Potassium 4.2 (3.5-5.1) mmol/L Chloride 100 (98-107) mmol/L Carbon Dioxide 20 L (21-32) mmol/L Anion Gap 9 (3-11) BUN 64 H (6-23) mg/dl Creatinine 2.54 H (0.6-1.4) mg/dl Est Cr Clr Drug Dosing 25.9 ml/min Est GFR ( Amer) 27.9 ml/min Est GFR (Non-Af Amer) 24.1 ml/min BUN/Creatinine Ratio 25.2 H (10-20) Glucose 233 H (70-99(Fasting)) mg/dl Calcium 9.4 (8.6-10.3) mg/dl Total Bilirubin 0.5 (0.2-1.0) mg/dl AST 20 (13-39) U/L ALT 15 (7-52) U/L Alkaline Phosphatase 113 H (34-104) U/L Total Protein 7.0 (6.0-8.3) gm/dl Albumin 2.9 L (3.4-5.0) gm/dl Globulin 4.1 H (2.5-4.0) gm/dl Albumin/Globulin Ratio 0.7 L (0.9-2) Lipase 29 (11-82) U/L Procalcitonin (0-0.5) ng/ml Urine Color Rawlins Urine Appearance Cloudy A (Clear) Urine pH 6.5 (4.5-7.5) Ur Specific Ewing 1.008 (1.000-1.030) Urine Protein 3+ H (Negative) Urine Glucose (UA) Negative (Negative) Urine Ketones Negative (Negative) Urine Blood 3+ H (Negative) Urine Nitrite Negative (Negative) Urine Bilirubin Negative (Negative) Urine Urobilinogen Negative (Negative) Ur Leukocyte Esterase 3+ H (Negative) Urine WBC (Auto) >30 H (0-5) /hpf Urine RBC (Auto) >30 H (0-4) /hpf U Hyaline Cast (Auto) 5-10 H (0-5) /lpf U Epithel Cells (Auto) >30 H (0-5) /lpf Urine Bacteria (Auto) Negative (Negative) Ur Renal Epithelial Cell Not Reportable Urine Yeast Budding w/ Hyphae A (None Prsent) SARS-CoV-2, RNA, NAAT (NEGATIVE) 08/18/22 08/18/22 Range/Units 21:10 21:39 WBC (4.8-10.8) K/ul RBC (4.70-6.10) M/uL Hgb (14.0-18.0) g/dl Hct (42.0-52.0) % MCV (80.0-100.0) fL MCH (25.0-34.0) pg MCHC (32.0-36.0) g/dL RDW Std Deviation (36.4-46.3) fL RDW Coeff of Krystal (11.5-14.5) % Plt Count (130-400) K/uL MPV (9.4-12.4) fL Immature Gran % (Auto) % Neut % (Auto) % Lymph % (Auto) % [place] % (Auto) % Eos % (Auto) % Baso % (Auto) % Neut # (Auto) (1.40-6.50) K/uL Lymph # (Auto) (1.2-3.4) K/uL Gilpin # (Auto) (0.11-0.59) K/uL Eos # (Auto) (0-0.50) K/uL Baso # (Auto) (0-0.2) K/uL Immature Gran # (Auto) (0.01-0.20) K/uL Polychromasia Anisocytosis Sodium (136-145) mmol/L Potassium (3.5-5.1) mmol/L Chloride (98-107) mmol/L Carbon Dioxide (21-32) mmol/L Anion Gap (3-11) BUN (6-23) mg/dl Creatinine (0.6-1.4) mg/dl Est Cr Clr Drug Dosing ml/min Est GFR ( Amer) ml/min Est GFR (Non-Af Amer) ml/min BUN/Creatinine Ratio (10-20) Glucose (70-99(Fasting)) mg/dl Calcium (8.6-10.3) mg/dl Total Bilirubin (0.2-1.0) mg/dl AST (13-39) U/L ALT (7-52) U/L Alkaline Phosphatase (34-104) U/L Total Protein (6.0-8.3) gm/dl Albumin (3.4-5.0) gm/dl Globulin (2.5-4.0) gm/dl Albumin/Globulin Ratio (0.9-2) Lipase (11-82) U/L Procalcitonin 1.00 H (0-0.5) ng/ml Urine Color Urine Appearance (Clear) Urine pH (4.5-7.5) Ur Specific Ewing (1.000-1.030) Urine Protein (Negative) Urine Glucose (UA) (Negative) Urine Ketones (Negative) Urine Blood (Negative) Urine Nitrite (Negative) Urine Bilirubin (Negative) Urine Urobilinogen (Negative) Ur Leukocyte Esterase (Negative) Urine WBC (Auto) (0-5) /hpf Urine RBC (Auto) (0-4) /hpf U Hyaline Cast (Auto) (0-5) /lpf U Epithel Cells (Auto) (0-5) /lpf Urine Bacteria (Auto) (Negative) Ur Renal Epithelial Cell Urine Yeast (None Prsent) SARS-CoV-2, RNA, NAAT NEGATIVE (NEGATIVE) Administered Medications Discontinued Medications Sodium Chloride (Nss) 500 mls @ 999 mls/hr IV .Q31M STA Stop: 08/18/22 16:25 Last Infusion: 08/18/22 18:59 Dose: 0 mls/hr Documented By: Admin: 08/18/22 16:42 Dose: 999 mls/hr Documented By: NEGAR Sodium Chloride (Nss 1000ml) 500 mls @ 999 mls/hr IV .Q31M ONE Stop: 08/18/22 17:36 Last Infusion: 08/18/22 18:59 Dose: 0 mls/hr Documented By: Admin: 08/18/22 17:42 Dose: 999 mls/hr Documented By: SAYRA Lidocaine HCl (Lidocaine 2% Jelly 5 Ml Tube) Confirm Administered Dose 5 ml EXT .STK-MED ONE Stop: 08/18/22 20:01 Last Admin: 08/18/22 21:02 Dose: Not Given Documented By: NEGAR Lidocaine HCl (Lidocaine 2% Jelly 5 Ml Tube) 5 ml EXT NOW ONE Stop: 08/18/22 20:03 Last Admin: 08/18/22 20:44 Dose: 5 ml Documented By: NEGAR Morphine Sulfate (Morphine Sulfate 4 Mg/Ml 1 Ml Carp\Vial) 6 mg IV NOW STA Stop: 08/18/22 15:56 Last Admin: 08/18/22 20:11 Dose: 6 mg Documented By: NEGAR Morphine Sulfate (Morphine Sulfate 2 Mg/Ml Carp) Confirm Administered Dose 2 mg .ROUTE .STK-MED ONE Stop: 08/18/22 20:07 Last Admin: 08/18/22 21:02 Dose: Not Given Documented By: NEGAR Morphine Sulfate (Morphine Sulfate 4 Mg/Ml 1 Ml Carp\Vial) Confirm Administered Dose 4 mg .ROUTE .STK-MED ONE Stop: 08/18/22 20:07 Last Admin: 08/18/22 21:02 Dose: Not Given Documented By: NEGAR Ondansetron HCl (Ondansetron Inj 2 Mg/Ml 2 Ml Vial) 4 mg IV NOW STA Stop: 08/18/22 15:56 Last Admin: 08/18/22 20:12 Dose: 4 mg Documented By: NEGAR Ondansetron HCl (Ondansetron Inj 2 Mg/Ml 2 Ml Vial) Confirm Administered Dose 4 mg .ROUTE .friendfundK-MED ONE Stop: 08/18/22 20:08 Last Admin: 08/18/22 21:02 Dose: Not Given Documented By: NEGAR Imaging Data Radiologist's Impression: Abdomen/Pelvis CT 08/18/22 15:55 CT SCAN OF THE ABDOMEN AND PELVIS WITHOUT IV CONTRAST CLINICAL HISTORY: Right flank pain. Nephrostomy tube. COMPARISON STUDY: Abdominal CT dated 07/31/2022. TECHNIQUE: CT scan of the abdomen and pelvis is performed from the lung bases to the proximal femora. Images are reviewed in the axial, sagittal, and coronal planes. IV contrast was not administered for this examination. Note that the examination is suboptimal without IV contrast. A dose lowering technique was u tilized adhering to the principles of ALARA. CT DOSE: 1112.24 mGy.cm FINDINGS: Lung bases: The heart is enlarged noting a small to moderate pericardial effusion. The coronary arteries are densely calcified. There is diminished attenuation of the cardiac blood pool as compared to the myocardium suggesting anemia. The lung bases are clear. A small hiatal hernia is noted. Liver: The unenhanced liver is enlarged, measuring 20.8 cm in length. The liver is otherwise normal in contour and attenuation. There is no intrahepatic biliary ductal dilatation. A 13 mm cyst is noted in the left lobe. Gallbladder: There are calcified gallstones without CT evidence of acute santo cystitis. Spleen: The spleen is enlarged, measuring 15.3 cm in length. Pancreas: The unenhanced pancreas is grossly unremarkable. Adrenal glands: Unremarkable. Kidneys: The unenhanced kidneys are normal in size. There is moderate bilateral hydroureteronephrosis. This has increased bilaterally as compared to 07/31/2022. There is nonspecific bilateral perinephric stranding. A percutaneous nephrostomy tube is seen on the right. A right ureteral stent is in appropriate position. No calcifications are seen in the right ureter on the course of the stent. There is no evidence of contour deforming renal mass lesion. Urothelial thickening and periureteric inflammation is seen on the right. Moderate periureteric inflammation seen on the left. No renal calculi are identified. Abdominal vasculature: The abdominal aorta is normal in course and caliber noting moderate atherosclerotic calcification. Bowel: The rectal wall is circumferentially thickened with surrounding inflammation and tiny lymph nodes. No bowel obstruction is seen. There is mild colonic diverticulosis without CT evidence of acute diverticulitis. Moderate fecal retention is noted throughout the colon. The appendix is well-visualized and normal. Peritoneum: There is no intraperitoneal free air or abdominal ascites. Lymphadenopathy: Enlarged pelvic lymph nodes are unchanged. A left pelvic sidewall node on image #[id number] measures 1.9 x 1.4 cm. Prominent retroperitoneal lymph nodes measure up to 1.0 cm in short axis. Pelvic viscera: The prostate gland is enlarged and heterogeneous with evidence o f previous TURP. Brachytherapy implants are in place. The bladder is distended, and the wall is thickened and irregular. There is extensive asymmetric multifocal masslike bladder wall thickening. The largest focus measures up to 4.4 cm. There is extensive abnormal soft tissue thickening pelvis fluid extends inferiorly from the base of the bladder into the anterior pelvis and perineum. This likely represents a combination of tumor and urine. Skeletal structures: The skeletal structures are osteopenic. There is mild lumbosacral spondylosis. There is osteolytic destruction of the anterior pubic bone bilaterally. There are chronic/healed left-sided rib fractures. IMPRESSION: 1. A right-sided percutaneous nephrostomy tube and right ureteral stent are in place. 2. There is moderate bilateral hydroureteronephrosis. This has increased as compared to 07/31/2022. 3. There is nonspecific urothelial thickening in the right ureter with associated perinephric and periureteric stranding. This could be related to the presence of indwelling catheters. Correlate with clinical findings and urinalysis for evidence of superimposed infection. 4. 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 5. Soft tissue thickening and fluid extends inferiorly from the bladder into the anterior pelvis and inferiorly into the prostate and perineum. This likely represents a combination of tumor and urine, and there is associated erosive change within the pubic symphysis bilaterally. Correlate clinically for evidence of superimposed infection These findings are similar to previous. Correlate clinically. 6. Mild enlarged pelvic lymph nodes are unchanged and likely represent metastatic disease. There are also mildly enlarged retroperitoneal lymph nodes. 7. Hepatosplenomegaly. 8. Cholelithiasis. 9. Cardiomegaly with pericardial effusion. 10. The rectal wall is circumferentially thickened with surrounding inflammation. This could be treatment related. Correlate clinically for evidence of a nonspecific proctitis. 11. Additional findings as above. ACT 112: Negative or not required by law. Electronically signed by: Fazal Paulino M.D. 08/18/2022 5:09 PM Discharge Plan Visit Data Chief Complaint: Flank Pain Stated Complaint: FLUID BUILD UP, FLANK PAIN ED Provider: Fazal Milan Discharge Problem: Bilateral flank pain, Hydronephrosis, Acute urinary retention, Obstructed nephrostomy tube Patient Disposition: Admitted As Inpatient Condition: Fair Forms Stand Alone Forms: [facility] [place] Prescriptions Prescriptions: No Action allopurinol 100 mg tablet 100 mg PO QAM omeprazole 20 mg capsule,delayed release(DR/EC) 20 mg PO DAILYBB vitamin B complex Capsule 1 cap PO DAILY cinnamon bark [Cinnamon] 500 mg Capsule 2,000 mg PO DAILY amlodipine 5 mg Tablet 5 mg PO DAILY acetaminophen [Tylenol Extra Strength] 500 mg Tablet 1,000 mg PO TID PRN (Reason: Pain) thiamine HCl (vitamin B1) 50 mg Tablet 50 mg PO DAILY sodium chloride 0.9 % (flush) Syringe 10 ml intra-catheter BID Tradjenta 5 mg Tablet 5 mg PO DAILY Probiotic 3 billion cell capsule 3,000 mmu cells PO DAILY 7 Days Qty: 7 0RF Rx Instructions: administer with a meal ciprofloxacin HCl [Cipro] 500 mg Tablet 500 mg PO TID Referrals Referrals: Carlitos Chaparro MD [Primary Care Provider] -
[2022-08-18 16:32] LABS: Hematocrit (blood only) 27.7 % (42.0-52.0); Hemoglobin 8.5 g/dl (14.0-18.0); Mean Corpuscular Hemoglobin 23.9 pg (25.0-34.0); Mean Corpuscular Hgb Conc 30.7 g/dL (32.0-36.0); Mean Corpuscular Volume 77.8 fL (80.0-100.0); Mean Platelet Volume 8.1 fL (9.4-12.4); Platelet Count 358 K/uL (130-400); RDW Standard Deviation 57.1 fL (36.4-46.3); Red Blood Count 3.56 M/uL (4.70-6.10); White Blood Count 24.73 K/ul (4.8-10.8)
[2022-08-18 16:50] LABS: Albumin Globulin Ratio 0.7 (0.9-2); Albumin Level 2.9 gm/dl (3.4-5.0); BUN Creatinine Ratio 25.2 (10-20); Bilirubin,Total 0.5 mg/dl (0.2-1.0); Calcium 9.4 mg/dl (8.6-10.3); Creatinine Clr Calc Pharmacy 25.9 ml/min; Est GFR (African American) 27.9 ml/min; Est GFR (Non-African American) 24.1 ml/min; Globulin 4.1 gm/dl (2.5-4.0); Potassium 4.2 mmol/L (3.5-5.1)
[2022-08-18 16:56] LABS: Anisocytosis Present; Basophils % (auto) 0.8 %; Eosinophils # (auto) 0.15 K/uL (0-0.50); Eosinophils % (auto) 0.6 %; Immature Granulocytes % (auto) 0.8 %; Lymphocytes % (auto) 8.1 %; Monocytes # (auto) 1.04 K/uL (0.11-0.59); Monocytes % (auto) 4.2 %; Neutrophils # (auto) 21.14 K/uL (1.40-6.50); Neutrophils % (auto) 85.5 %; Polychromasia 1+
[2022-08-18] MEDS ORDERED: SODIUM CHLORIDE 0.9% 1000ML 500 ML IV ONE (17:06)
--- NOTE | 2022-08-18 17:10 | CT Scan Report ---
CT SCAN OF THE ABDOMEN AND PELVIS WITHOUT IV CONTRAST CLINICAL HISTORY: Right flank pain. Nephrostomy tube. COMPARISON STUDY: Abdominal CT dated 07/31/2022. TECHNIQUE: CT scan of the abdomen and pelvis is performed from the lung bases to the proximal femora. Images are reviewed in the axial, sagittal, and coronal planes. IV contrast was not administered for this examination. Note that the examination is suboptimal without IV contrast. A dose lowering techn ique was utilized adhering to the principles of ALARA. CT DOSE: 1112.24 mGy.cm FINDINGS: Lung bases: The heart is enlarged noting a small to moderate pericardial effusion. The coronary arter ies are densely calcified. There is diminished attenuation of the cardiac blood pool as compared to t he myocardium suggesting anemia. The lung bases are clear. A small hiatal hernia is noted. Liver: The unenhanced liver is enlarged, measuring 20.8 cm in length. The liver is otherwise normal i n contour and attenuation. There is no intrahepatic biliary ductal dilatation. A 13 mm cyst is noted in the left lobe. Gallbladder: There are calcified gallstones without CT evidence of acute cholecystitis. Spleen: The spleen is enlarged, measuring 15.3 cm in length. Pancreas: The unenhanced pancreas is grossly unremarkable. Adrenal glands: Unremarkable. Kidneys: The unenhanced kidneys are normal in size. There is moderate bilateral hydroureteronephrosis . This has increased bilaterally as compared to 07/31/2022. There is nonspecific bilateral perinephric stranding. A percutaneous nephrostomy tube is seen on the right. A right ureteral stent is in approp riate position. No calcifications are seen in the right ureter on the course of the stent. There is n o evidence of contour deforming renal mass lesion. Urothelial thickening and periureteric inflammatio n is seen on the right. Moderate periureteric inflammation seen on the left. No renal calculi are anthony ntified. Abdominal vasculature: The abdominal aorta is normal in course and caliber noting moderate atheroscle rotic calcification. Bowel: The rectal wall is circumferentially thickened with surrounding inflammation and tiny lymph no porter. No bowel obstruction is seen. There is mild colonic diverticulosis without CT evidence of acute diverticulitis. Moderate fecal retention is noted throughout the colon. The appendix is well-visuali zed and normal. Peritoneum: There is no intraperitoneal free air or abdominal ascites. Lymphadenopathy: Enlarged pelvic lymph nodes are unchanged. A left pelvic sidewall node on image #[id number] measures 1.9 x 1.4 cm. Prominent retroperitoneal lymph nodes measure up to 1.0 cm in short axis. Pelvic viscera: The prostate gland is enlarged and heterogeneous with evidence of previous TURP. Brac hytherapy implants are in place. The bladder is distended, and the wall is thickened and irregular. T here is extensive asymmetric multifocal masslike bladder wall thickening. The largest focus measures up to 4.4 cm. There is extensive abnormal soft tissue thickening pelvis fluid extends inferiorly from the base of the bladder into the anterior pelvis and perineum. This likely represents a combination of tumor and urine. Skeletal structures: The skeletal structures are osteopenic. There is mild lumbosacral spondylosis. T here is osteolytic destruction of the anterior pubic bone bilaterally. There are chronic/healed left- sided rib fractures. IMPRESSION: 1. A right-sided percutaneous nephrostomy tube and right ureteral stent are in place. 2. There is moderate bilateral hydroureteronephrosis. This has increased as compared to 07/31/2022. 3. There is nonspecific urothelial thickening in the right ureter with associated perinephric and per iureteric stranding. This could be related to the presence of indwelling catheters. Correlate with cl inical findings and urinalysis for evidence of superimposed infection. 4. 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 5. Soft tissue thickening and fluid extends inferiorly from the bladder into the anterior pelvis and inferiorly into the prostate and perineum. This likely represents a combination of tumor and urine, a nd there is associated erosive change within the pubic symphysis bilaterally. Correlate clinically fo r evidence of superimposed infection These findings are similar to previous. Correlate clinically. 6. Mild enlarged pelvic lymph nodes are unchanged and likely represent metastatic disease. There are also mildly enlarged retroperitoneal lymph nodes. 7. Hepatosplenomegaly. 8. Cholelithiasis. 9. Cardiomegaly with pericardial effusion. 10. The rectal wall is circumferentially thickened with surrounding inflammation. This could be treat ment related. Correlate clinically for evidence of a nonspecific proctitis. 11. Additional findings as above. ACT 112: Negative or not required by law. Electronically signed by: Fazal Paulino M.D. 08/18/2022 5:09 PM
[2022-08-18 19:39] LABS: Appearance Urine Cloudy (Clear); Bacteria Urine Automated Negative (Negative); Bilirubin Urine Negative (Negative); Blood Urine 3+ (Negative); Color Urine Orange; Epithelial Cell Urine Auto >30 /lpf (0-5); Glucose Urine UA Negative (Negative); Ketones Urine Negative (Negative); Leukocyte Esterase Urine 3+ (Negative); Nitrite Urine Negative (Negative); Protein Urine 3+ (Negative); Specific Gravity Urine 1.008 (1.000-1.030); Urobilinogen Urine Negative (Negative); WBC Urine Automated >30 /hpf (0-5); pH Urine 6.5 (4.5-7.5)
[2022-08-18] MEDS ORDERED: LIDOCAINE 2% JELLY 5 ML TUBE EXT ONE ×2 (20:00→20:02)
[2022-08-18 20:04] LABS: RBC Urine Automated >30 /hpf (0-4)
[2022-08-18] MEDS ORDERED: MoRPHine SULFATE 4 MG/ML 1 ML CARP\\VIAL ONE (20:06)
[2022-08-18] MEDS ORDERED: MoRPHine SULFATE 2 MG/ML CARP ONE (20:06)
[2022-08-18] MEDS ORDERED: ONDANSETRON INJ 2 MG/ML 2 ML VIAL ONE (20:07)
[2022-08-18] MEDS ORDERED: amLODIPine BESYLATE 5 MG TAB PO ONE (21:45)
--- NOTE | 2022-08-18 22:14 | History & Physical Report ---
Date of Service August 18, 2022 Assessment & Plan (1) Sepsis: Plan: Recurrent complicated UTIs hx bladder cancer on Keytruda, right hydronephrosis status post percutaneous nephroureteral tube placement Bacteriuria and funguria on today's specimen hypertension, elevated upon arrival at the ER prostate cancer status post radiation CRI, creatinine at baseline Chronic hyponatremia chronic anemia, hemoglobin at baseline DM 2 on oral medications, reasonable control as of recent hemoglobin A1c of 7.6 last June 2022 Constipation past alcohol abuse PCU given tachycardia CS, Zosyn Diflucan given history instrumentation, urologic catheter devices [facility] ID consult Re: Recurrent complicated UTI, funguria Urology consult Re: obstructive uropathy Basal bolus insulin, ISS BG goal 1 10-1 40, carb count coverage Bowel regimen DVT prophylaxis. SCDs Re: bleed Full code Patient requests for to be given periodic updates. Ms. Lisa Robert, contact #[phone]. Text document was generated using Siperian voice recognition software. It may contain grammatical or spelling errors. Kindly contact undersigned for clarification of any documentation item in question. History of Present Illness Chief Complaint: Right flank pain, nephrostomy tube issue Primary Care Provider: Carlitos Chaparro MD History obtained from patient and records. Medical history significant for hypertension, bladder cancer on Keytruda, right hydronephrosis status post percutaneous nephroureteral tube placement, prostate cancer status post radiation, DM 2 on oral medications, CRI (baseline creatinine 2,2), chronic hyponatremia, chronic anemia (baseline hemoglobin of 8), past alcohol abuse. Two admissions last month for complicated UTI, kidney dysfunction. Recent confinement August 11 to 2022. No growth on urine CS. Patient discharged on Keflex course. Yesterday, patient noted increasing right flank pain and leakage through nephrostomy tube collection site. Decreased urine catheter bag drainage. Last bowel movement was last week. Patient denies chest pain, SOB. Worsening hydronephrosis noted on CT. Minimal drainage in his nephrostomy bag despite nephrostomy tube change/irrigation at the ER. Nash catheter inserted at the ER following [facility] urologist recommendation with n ote of 1400 cc of bloody urine drainage. Transfer to tertiary center recommended for nephrostomy tube exchange. As per ER provider, no urologist cylinder honer at [facility] this weekend. No beds at [facility] currently. [facility] urologist on-call (Dr. Pinto) recommended keeping patient at [facility] overnight and discharging patient home with Nash catheter if with good urine drainage and kidney function stable. Patient to keep his follow-up appointment with his local [facility] urologist next week. Patient later noted to be tachycardic (heart rate 150s) and febrile at the ER. 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 Allergies Allergy/AdvReac Type Severity Reaction Status Date / Time No Known Allergies Allergy Verified 08/18/22 22:07 Home Medications Medication Instructions Recorded Confirmed Type allopurinol 100 mg tablet 100 mg PO QAM 01/02/22 08/18/22 History cinnamon bark 500 mg capsule 2,000 mg PO DAILY 01/02/22 08/18/22 History (Cinnamon) omeprazole 20 mg capsule,delayed 20 mg PO DAILYBB 01/02/22 08/18/22 History release vitamin B complex 1 cap PO DAILY 01/02/22 08/18/22 History acetaminophen 500 mg tablet 1,000 mg PO TID PRN Pain 07/27/22 08/18/22 History (Tylenol Extra Strength) amlodipine 5 mg tablet 5 mg PO DAILY 07/27/22 08/18/22 History linagliptin 5 mg tablet (Tradjenta) 5 mg PO DAILY 07/27/22 08/18/22 History sodium chloride 0.9 % (flush) 10 ml intra-catheter BID 07/27/22 08/18/22 History thiamine HCl (vitamin B1) 50 mg 50 mg PO DAILY 07/27/22 08/18/22 History tablet lactobacillus combination no.4 3 3,000 mmu cells PO DAILY 7 days #7 08/14/22 08/18/22 Rx billion cell capsule (Probiotic) caps ciprofloxacin HCl 500 mg tablet 500 mg PO TID 08/18/22 08/18/22 History (Cipro) Past Med/Surg History Medical History Bladder cancer Chronic kidney disease (CKD), stage III (moderate) Diabetes mellitus DMII (diabetes mellitus, type 2) Dyslipidemia GERD (gastroesophageal reflux disease) Gout H/O prostate cancer HTN (hypertension) Melanoma Protein calorie malnutrition Surgical History H/O cystoscopy 12/2021 with fulguration of bladder tumor 11/2021 witth fulguration of bladder tumor H/O umbilical hernia repair History of mandibular surgery 1975 S/P urological surgery IR drainage catheter change right, 02/22 place percutaneous nephrostomy tube- [facility] Family History Brother Cancer Social History Smoking Status: Never smoker Tobacco Type: Smokeless Tobacco (Dip or Chew) Hx Alcohol Use: No Hx Substance Use: No Preferred Language: Armenian Communication Ability: Effective Toll Test Worker Required: No Beliefs That Will Affect Care: None Current Living Situation: Alone Other Information That Helps Us Care for You: No Feels Safe at Home: Yes Assistive Devices: None Review of Systems Review of Systems: As per HPI, all other systems reviewed and negative Physical Exam Physical Exam: GENERAL: Slightly uncomfortable, no respiratory distress SKIN: Pallor, warm HEENT: Pale palpebral conjunctivae, no ptosis, dry buccal mucosa NECK : Supple, no tenderness CHEST : Decreased breath sounds, no tenderness HEART : Tachycardic, no obvious murmurs ABDOMEN: Some distention, right flank tenderness EXTREMITIES : No LE swelling/tenderness, no other conspicuous deformities noted NEUROLOGIC : Coherent, no facial asymmetry, gait and stance not assessed Results & Data Results & Data Vital Signs (Past 12 Hours) Vital Signs Temp Pulse Pulse Resp BP BP Pulse Ox 08/18/22 21:01 36.4 C L 92 H 18 164/84 H 98 08/18/22 20:26 101 H 08/18/22 17:41 86 18 142/73 H 99 08/18/22 15:02 36.5 C 72 20 134/72 99 O2 Del Method 08/18/22 21:01 Room Air 08/18/22 20:26 08/18/22 17:41 Room Air 08/18/22 15:02 Room Air Laboratory Results Laboratory Results WBC 24.73 K/ul (4.8-10.8) H 08/18/22 15:56 RBC 3.56 M/uL (4.70-6.10) L 08/18/22 15:56 Hgb 8.5 g/dl (14.0-18.0) L 08/18/22 15:56 Hct 27.7 % (42.0-52.0) L 08/18/22 15:56 MCV 77.8 fL (80.0-100.0) L 08/18/22 15:56 MCH 23.9 pg (25.0-34.0) L 08/18/22 15:56 MCHC 30.7 g/dL (32.0-36.0) L 08/18/22 15:56 RDW Std Deviation 57.1 fL (36.4-46.3) H 08/18/22 15:56 RDW Coeff of Krystal 20.0 % (11.5-14.5) H 08/18/22 15:56 Plt Count 358 K/uL (130-400) 08/18/22 15:56 MPV 8.1 fL (9.4-12.4) L 08/18/22 15:56 Immature Gran % (Auto) 0.8 % 08/18/22 15:56 Neut % (Auto) 85.5 % 08/18/22 15:56 Lymph % (Auto) 8.1 % 08/18/22 15:56 Sunflower % (Auto) 4.2 % 08/18/22 15:56 Eos % (Auto) 0.6 % 08/18/22 15:56 Baso % (Auto) 0.8 % 08/18/22 15:56 Neut # (Auto) 21.14 K/uL (1.40-6.50) H 08/18/22 15:56 Lymph # (Auto) 2.00 K/uL (1.2-3.4) 08/18/22 15:56 Sunflower # (Auto) 1.04 K/uL (0.11-0.59) H 08/18/22 15:56 Eos # (Auto) 0.15 K/uL (0-0.50) 08/18/22 15:56 Baso # (Auto) 0.20 K/uL (0-0.2) 08/18/22 15:56 Immature Gran # (Auto) 0.20 K/uL (0.01-0.20) 08/18/22 15:56 Polychromasia 1+ 08/18/22 15:56 Anisocytosis Present 08/18/22 15:56 Sodium 129 mmol/L (136-145) L 08/18/22 15:56 Potassium 4.2 mmol/L (3.5-5.1) 08/18/22 15:56 Chloride 100 mmol/L (98-107) 08/18/22 15:56 Carbon Dioxide 20 mmol/L (21-32) L 08/18/22 15:56 Anion Gap 9 (3-11) 08/18/22 15:56 BUN 64 mg/dl (6-23) H 08/18/22 15:56 Creatinine 2.54 mg/dl (0.6-1.4) H 08/18/22 15:56 Est Cr Clr Drug Dosing 25.9 ml/min 08/18/22 15:56 Est GFR ( Amer) 27.9 ml/min 08/18/22 15:56 Est GFR (Non-Af Amer) 24.1 ml/min 08/18/22 15:56 BUN/Creatinine Ratio 25.2 (10-20) H 08/18/22 15:56 Glucose 233 mg/dl (70-99(Fasting)) H 08/18/22 15:56 Calcium 9.4 mg/dl (8.6-10.3) 08/18/22 15:56 Total Bilirubin 0.5 mg/dl (0.2-1.0) 08/18/22 15:56 AST 20 U/L (13-39) 08/18/22 15:56 ALT 15 U/L (7-52) 08/18/22 15:56 Alkaline Phosphatase 113 U/L (34-104) H 08/18/22 15:56 Total Protein 7.0 gm/dl (6.0-8.3) 08/18/22 15:56 Albumin 2.9 gm/dl (3.4-5.0) L 08/18/22 15:56 Globulin 4.1 gm/dl (2.5-4.0) H 08/18/22 15:56 Albumin/Globulin Ratio 0.7 (0.9-2) L 08/18/22 15:56 Lipase 29 U/L (11-82) 08/18/22 15:56 Procalcitonin 1.00 ng/ml (0-0.5) H 08/18/22 21:39 Urine Color [place] 08/18/22 18:40 Urine Appearance Cloudy (Clear) A 08/18/22 18:40 Urine pH 6.5 (4.5-7.5) 08/18/22 18:40 Ur Specific [place] 1.008 (1.000-1.030) 08/18/22 18:40 Urine Protein 3+ (Negative) H 08/18/22 18:40 Urine Glucose (UA) Negative (Negative) 08/18/22 18:40 Urine Ketones Negative (Negative) 08/18/22 18:40 Urine Blood 3+ (Negative) H 08/18/22 18:40 Urine Nitrite Negative (Negative) 08/18/22 18:40 Urine Bilirubin Negative (Negative) 08/18/22 18:40 Urine Urobilinogen Negative (Negative) 08/18/22 18:40 Ur Leukocyte Esterase 3+ (Negative) H 08/18/22 18:40 Urine WBC (Auto) >30 /hpf (0-5) H 08/18/22 18:40 Urine RBC (Auto) >30 /hpf (0-4) H 08/18/22 18:40 U Hyaline Cast (Auto) 5-10 /lpf (0-5) H 08/18/22 18:40 U Epithel Cells (Auto) >30 /lpf (0-5) H 08/18/22 18:40 Urine Bacteria (Auto) Negative (Negative) 08/18/22 18:40 Ur Renal Epithelial Cell Not Reportable 08/18/22 18:40 Urine Yeast Budding w/ Hyphae (None Prsent) A 08/18/22 18:40 SARS-CoV-2, RNA, NAAT NEGATIVE (NEGATIVE) 08/18/22 21:10 Impressions Abdomen/Pelvis CT 08/18/22 15:55 CT SCAN OF THE ABDOMEN AND PELVIS WITHOUT IV CONTRAST CLINICAL HISTORY: Right flank pain. Nephrostomy tube. COMPARISON STUDY: Abdominal CT dated 07/31/2022. TECHNIQUE: CT scan of the abdomen and pelvis is performed from the lung bases to the proximal femora. Images are reviewed in the axial, sagittal, and coronal planes. IV contrast was not administered for this examination. Note that the examination is suboptimal without IV contrast. A dose lowering technique was utilized adhering to the principles of ALARA. CT DOSE: 1112.24 mGy.cm FINDINGS: Lung bases: The heart is enlarged noting a small to moderate pericardial effusion. The coronary arteries are densely calcified. There is diminished attenuation of the cardiac blood pool as compared to the myocardium suggesting anemia. The lung bases are clear. A small hiatal hernia is noted. Liver: The unenhanced liver is enlarged, measuring 20.8 cm in length. The liver is otherwise normal in contour and attenuation. There is no intrahepatic biliary ductal dilatation. A 13 mm cyst is noted in the left lobe. Gallbladder: There are calcified gallstones without CT evidence of acute cholecystitis. Spleen: The spleen is enlarged, measuring 15.3 cm in length. Pancreas: The unenhanced pancreas is grossly unremarkable. Adrenal glands: Unremarkable. Kidneys: The unenhanced kidneys are normal in size. There is moderate bilateral hydroureteronephrosis. This has increased bilaterally as compared to 07/31/2022. There is nonspecific bilateral perinephric stranding. A percutaneous nephrostomy tube is seen on the right. A right ureteral stent is in appropriate position. No calcifications are seen in the right ureter on the course of the stent. There is no evidence of contour deforming renal mass lesion. Urothelial thickening and periureteric inflammation is seen on the right. Moderate periureteric inflammation seen on the left. No renal calculi are identified. Abdominal vasculature: The abdominal aorta is normal in course and caliber noting moderate atherosclerotic calcification. Bowel: The rectal wall is circumferentially thickened with surrounding inflammation and tiny lymph nodes. No bowel obstruction is seen. There is mild colonic diverticulosis without CT evidence of acute diverticulitis. Moderate fecal retention is noted throughout the colon. The appendix is well-visualized and normal. Peritoneum: There is no intraperitoneal free air or abdominal ascites. Lymphadenopathy: Enlarged pelvic lymph nodes are unchanged. A left pelvic sidewall node on image #[id number] measures 1.9 x 1.4 cm. Prominent retroperitoneal lymph nodes measure up to 1.0 cm in short axis. Pelvic viscera: The prostate gland is enlarged and heterogeneous with evidence of previous TURP. Brachytherapy implants are in place. The bladder is distended, and the wall is thickened and irregular. There is extensive asymmetric multifocal masslike bladder wall thickening. The largest focus measures up to 4.4 cm. There is extensive abnormal soft tissue thickening pelvis fluid extends inferiorly from the base of the bladder into the anterior pelvis and perineum. This likely represents a combination of tumor and urine. Skeletal structures: The skeletal structures are osteopenic. There is mild lumbosacral spondylosis. There is osteolytic destruction of the anterior pubic bone bilaterally. There are chronic/healed left-sided rib fractures. IMPRESSION: 1. A right-sided percutaneous nephrostomy tube and right ureteral stent are in place. 2. There is moderate bilateral hydroureteronephrosis. This has increased as compared to 07/31/2022. 3. There is nonspecific urothelial thickening in the right ureter with associated perinephric and periureteric stranding. This could be related to the presence of indwelling catheters. Correlate with clinical findings and urinalysis for evidence of superimposed infection. 4. 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 5. Soft tissue thickening and fluid extends inferiorly from the bladder into the anterior pelvis and inferiorly into the prostate and perineum. This likely represents a combination of tumor and urine, and there is associated erosive change within the pubic symphysis bilaterally. Correlate clinically for evidence of superimposed infection These findings are similar to previous. Correlate clinically. 6. Mild enlarged pelvic lymph nodes are unchanged and likely represent metastatic disease. There are also mildly enlarged retroperitoneal lymph nodes. 7. Hepatosplenomegaly. 8. Cholelithiasis. 9. Cardiomegaly with pericardial effusion. 10. The rectal wall is circumferentially thickened with surrounding inflammation. This could be treatment related. Correlate clinically for evidence of a nonspecific proctitis. 11. Additional findings as above. ACT 112: Negative or not required by law. Electronically signed by: Fazal Paulino M.D. 08/18/2022 5:09 PM Diagnostic Findings EKG as per my interpretation :Rate 160, sinus tachycardia, normal axis, no ischemia
[2022-08-18] MEDS ORDERED: PIPERACILLIN/TAZOBACTAM 4.5 GM/120 ML BAG IV STA (22:29)
[2022-08-18] MEDS ORDERED: POLYETHYLENE (MIRALAX) 17 GM PACK PO STA (22:31)
[2022-08-18] MEDS ORDERED: LACTULOSE SYRUP 20 GM/30 ML UDC PO STA (22:31)
[2022-08-18] MEDS ORDERED: DOCUSATE SODIUM/SENNA 50/8.6MG TAB PO STA (22:31)
[2022-08-18] MEDS ORDERED: HYDROmorphone INJ 0.5 MG/0.5 ML SYR IV PRN (22:31)
[2022-08-18] MEDS ORDERED: PROMETHAZINE HCL 6.25 MG in SODIUM CHLORIDE 0.9% 50 ML IV PRN (22:31)
[2022-08-18] MEDS ORDERED: oxyCODONE HCL IR 5 MG TAB (IMMEDIATE RELEASE) PO PRN (22:31)
[2022-08-18] MEDS ORDERED: SODIUM CHLORIDE 0.9% 1000ML 1,000 ML IV STA (22:45)
--- NOTE | 2022-08-18 22:45 | Urology Consultation ---
Date of Consultation August 18, 2022 Assessment & Plan (1) Hydronephrosis: I discussed with the treating emergency room physician and he is being admitted on the hospitalist service. We recommend proceeding as follows from a urology perspective: Maintain Nash catheter to gravity drainage. At the time of my visit with the patient that he has noted nearly 100% improvement of his symptomatology. As noted in the HPI of this document urology at [facility] recommends maintaining Nash catheter and if patient shows continued clinical improvement he can be discharged with this modality with outpatient follow-up. It is noteworthy to mention the patient notes that he has a follow-up appointment with Dr. Ernie Calvo of [facility] urology this coming August 22. He will be encouraged to keep this appointment if he is discharged from the hospital. If Nash catheter fails to continue to provide the patient significant relief consideration will have to be given to transferring the patient to a facility where patient can have his percutaneous nephrostomy tube exchanged as we do not have the capabilities at this facility. Recommend following serial labs As there is concern for the potential of a urinary tract infection patient has been placed on Zosyn. Antibiotics to be continued until appropriate culture data is obtained at which time antibiotics to be further tailored based on these results. Patient is also noted to have some yeast on his urinalysis but we will defer to the medical service treatment of this with an antifungal. Additional recommendations will be based on patient's clinical course as it unfolds History of Present Illness Reason for Consultation: Hydronephrosis History of Present Illness This is a 71-year-old male with an underlying history of prostate and bladder cancer. He is currently under the care of Dr. Weiss of [facility] hematology/oncology. Patient says he is currently not undergoing traditional chemotherapy but has been getting Keytruda. The patient notes that secondary to his cancer he has had to have a right percutaneous nephrostomy placed and this was placed in February 2022 at [facility]. Patient says that this nephrostomy tube was exchanged in June of this year. He notes he was doing well with this nephrostomy tube and it was draining well until approximately 3 days ago the patient noted that the drainage seemed to decrease. Patient denies any fevers, shakes, or chills but did note some significant right flank pain. He has not had any nausea or vomiting or abdominal pain. Patient notes over the ensuing 3 days his problems seem to get worse prompting his visit to the emergency department. Since arrival to the hospital the patient has had labs and imaging which I independent reviewed. Chest x-ray did not reveal any pleural effusions or pneumonia. A CT scan of the abdomen and pelvis showed the patient had a right- sided percutaneous nephrostomy as well as a right ureteral stent in place. There is noted to be bilateral hydronephrosis of a moderate nature which has increased compared to 07/31/2022. There are some nonspecific urothelial thickening in the right ureter with some perinephric stranding. There is also soft tissue thickening and fluid extending inferior from the bladder into the anterior pelvis into the prostate and perineum felt to represent either tumor in urine or combination of the 2. Labs include a CBC her white blood cell count was 24.7. Review of patient's labs show that over the past month his baseline white blood cell count has been in 20-25,000 range. Hemoglobin and hematocrit were 8.5 and 27.7. These values did not represent a precipitous drop from previous values. His platelet count was within the normal range. Sodium was n oted to be 129. His potassium was normal. BUN and creatinine were 64 and 2.5. Over the past month the patient's baseline creatinine has run at approximately 2.6-2.8. A urinalysis showed cloudy urine which was negative for nitrites. There was 3+ leukocyte Estrace and greater than 30 white blood cells per high- power field. There is no bacteria on this study. There was budding hyphae a noted. A COVID test was negative. Due to the findings on CT scan and clinical presentation it seems as though the patient's nephrostomy tube was not functioning properly. The nursing staff tried to flush and irrigate the patient's nephrostomy tube to no avail. The treating emergency room physician noted that he did discuss with Dr. Gregory of [facility] physician group urology who recommended placing a Nash catheter. When the Nash catheter was placed the patient had a large amount of urine in excess of 1 L retrieved and the patient noted symptomatic relief with this modality. The treating emergency room physician subsequently discussed the case with the patient's urologist at [facility] in [place] and they noted that as the patient has achieved symptomatic relief he can be monitored at [facility] for the present time. If the Nash catheter subsequently fails to provide the necessary relief and improvement of this problem consideration be given to transfer to [facility] for exchange of his percutaneous nephrostomy. At the time of my interview the patient was resting comfortably in bed and he was in no distress. Allergies Allergy/AdvReac Type Severity Reaction Status Date / Time No Known Allergies Allergy Verified 08/18/22 22:07 Home Medications Medication Instructions Recorded Confirmed Type allopurinol 100 mg tablet 100 mg PO QAM 01/02/22 08/18/22 History cinnamon bark 500 mg capsule 2,000 mg PO DAILY 01/02/22 08/18/22 History (Cinnamon) omeprazole 20 mg capsule,delayed 20 mg PO DAILYBB 01/02/22 08/18/22 History release vitamin B complex 1 cap PO DAILY 01/02/22 08/18/22 History acetaminophen 500 mg tablet 1,000 mg PO TID PRN Pain 07/27/22 08/18/22 History (Tylenol Extra Strength) amlodipine 5 mg tablet 5 mg PO DAILY 07/27/22 08/18/22 History linagliptin 5 mg tablet (Tradjenta) 5 mg PO DAILY 07/27/22 08/18/22 History sodium chloride 0.9 % (flush) 10 ml intra-catheter BID 07/27/22 08/18/22 History thiamine HCl (vitamin B1) 50 mg 50 mg PO DAILY 07/27/22 08/18/22 History tablet lactobacillus combination no.4 3 3,000 mmu cells PO DAILY 7 days #7 08/14/22 08/18/22 Rx billion cell capsule (Probiotic) caps ciprofloxacin HCl 500 mg tablet 500 mg PO TID 08/18/22 08/18/22 History (Cipro) Patient History Medical History Bladder cancer Chronic kidney disease (CKD), stage III (moderate) Diabetes mellitus DMII (diabetes mellitus, type 2) Dyslipidemia GERD (gastroesophageal reflux disease) Gout H/O prostate cancer HTN (hypertension) Melanoma Protein calorie malnutrition Surgical History H/O cystoscopy 12/2021 with fulguration of bladder tumor 11/2021 witth fulguration of bladder tumor H/O umbilical hernia repair History of mandibular surgery 1975 S/P urological surgery IR drainage catheter change right, 02/22 place percutaneous nephrostomy tube- [facility] Family History Brother Cancer Social History Smoking Status: Never smoker Tobacco Type: Smokeless Tobacco (Dip or Chew) Hx Alcohol Use: No Hx Substance Use: No Preferred Language: Armenian Communication Ability: Effective Vortex Operator Required: No Beliefs That Will Affect Care: None Current Living Situation: Alone Other Information That Helps Us Care for You: No Feels Safe at Home: Yes Assistive Devices: None Review of Systems Constitutional: no fever and no chills Ear, Nose, Mouth, Throat: no hearing loss Respiratory: no cough and no dyspnea Cardiovascular: no chest pain Gastrointestinal: no abdominal pain, no nausea and no vomiting Genitourinary: + as per Subjective / HPI Musculoskeletal: + back pain (Right flank) Integumentary: no rash Neurologic: no localized weakness Physical Exam Constitutional: WD/WN, vitals as above Eyes: no conjunctival abnormality ENMT: Ears: no hearing impairment and no external ear abnormality Mouth: no oropharynx abnormality Neck: trachea midline Respiratory: normal respiratory effort; no respiratory distress and no labored breathing Cardiovascular: Rate/Rhythm: regular rate and regular rhythm Vessels: dorsalis pedis pulses present and radial pulses present Gastrointestinal (Abdomen): Abdomen is soft, nonrigid, and nondistended. Palpation did not cause pain. There is no rebound tenderness or guarding Musculoskeletal: No calf tenderness Skin: no rashes Neurologic: moves all extremities Psychiatric: A+Ox3, euthymic affect Results & Data Vital Signs (Past 12 Hours) Vital Signs Temp Pulse Pulse Resp BP BP Pulse Ox 08/18/22 21:01 36.4 C L 92 H 18 164/84 H 98 08/18/22 20:26 101 H 08/18/22 17:41 86 18 142/73 H 99 08/18/22 15:02 36.5 C 72 20 134/72 99 O2 Del Method 08/18/22 21:01 Room Air 08/18/22 20:26 08/18/22 17:41 Room Air 08/18/22 15:02 Room Air PG Care Time/CCT Total # of Minutes Spent Total Time Spent with Patient: Total time spent is greater than 50% in coordination of care (as documented) at patient's floor/unit and/or counseling patient: Coding Level of Care Code 18607 INT INP/OBS CARE 375MIN Diagnoses Hydronephrosis N13.30 Hydronephrosis type: unspecified (1) Hydronephrosis Hydronephrosis type: unspecified Qualified Code(s): N13.30 - Unspecified hydronephrosis
[2022-08-18 23:00] LABS: Magnesium 1.8 mg/dl (1.7-2.4)
[2022-08-18] MEDS ORDERED: ACETAMINOPHEN 1,000 MG/100 ML VIAL IV STA (23:57)
[2022-08-18] MEDS ORDERED: METOPROLOL TARTRATE 1 MG/ML VIAL IV STA (23:57)
[2022-08-19] MEDS ORDERED: ACETAMINOPHEN 1000 MG/100 ML IV IV ONE (00:01)
[2022-08-19] MEDS ORDERED: MAGNESIUM SULFATE / D5W 1 GM/100 ML BAG IV ONE (00:01)
[2022-08-19] MEDS ORDERED: METOPROLOL TARTRATE 1 MG/ML VIAL IV ONE (00:02)
[2022-08-19] MEDS ORDERED: GLUCOSE 10 TAB/TUBE PO PRN (01:17)
[2022-08-19] MEDS ORDERED: CARBOHYDRATES FOR HYPOGLYCEMIA PO PRN (01:17)
[2022-08-19] MEDS ORDERED: ACETAMINOPHEN 325 MG TAB PO PRN (01:17)
[2022-08-19] MEDS ORDERED: GLUCOSE 40% GEL 15 GM TUBE PO PRN (01:17)
[2022-08-19] MEDS ORDERED: GLUCAGON FOR INJ 1 MG VIAL SQ PRN (01:17)
[2022-08-19] MEDS ORDERED: DEXTROSE 50% 50 ML SYRINGE IV PRN (01:17)
[2022-08-19] MEDS ORDERED: POLYETHYLENE (MIRALAX) 17 GM PACK PO PRN (01:17)
[2022-08-19] MEDS: INSULIN ASPART PER UNIT CHARGE SC SCH ×5 (02:20→21:15)
[2022-08-19] MEDS ORDERED: SODIUM CHLORIDE 0.9% 1000ML 1,000 ML IV ONE ×2 (02:45→05:45)
[2022-08-19] MEDS: FLUCONAZOLE 200 MG/100 ML BAG IV SCH (03:04)
[2022-08-19] MEDS ORDERED: SODIUM CHLORIDE 0.9% 1000ML 1,000 ML IV SCH (03:45)
[2022-08-19] MEDS: PIPERACILLIN/TAZOBACTAM 4.5 GM in DEXTROSE 5% 100 ML IV SCH ×3 (03:48→21:15)
[2022-08-19 04:56] LABS: BUN Creatinine Ratio 25.4 (10-20); Calcium 8.6 mg/dl (8.6-10.3); Creatinine Clr Calc Pharmacy 25.3 ml/min; Est GFR (African American) 27.1 ml/min; Est GFR (Non-African American) 23.4 ml/min; Potassium 3.8 mmol/L (3.5-5.1)
[2022-08-19 04:59] LABS: Hematocrit (blood only) 22.7 % (42.0-52.0); Hemoglobin 7.1 g/dl (14.0-18.0); Mean Corpuscular Hemoglobin 24.4 pg (25.0-34.0); Mean Corpuscular Hgb Conc 31.3 g/dL (32.0-36.0); Mean Platelet Volume 8.3 fL (9.4-12.4); Platelet Count 272 K/uL (130-400); RDW Coefficient of Variation 20.6 % (11.5-14.5); RDW Standard Deviation 57.6 fL (36.4-46.3); Red Blood Count 2.91 M/uL (4.70-6.10); White Blood Count 38.91 K/ul (4.8-10.8)
[2022-08-19 05:11] LABS: Anisocytosis Present; Basophils # (auto) 0.16 K/uL (0-0.2); Basophils % (auto) 0.4 %; Eosinophils # (auto) 0.05 K/uL (0-0.50); Eosinophils % (auto) 0.1 %; Immature Granulocytes # (auto) 0.92 K/uL (0.01-0.20); Immature Granulocytes % (auto) 2.4 %; Lymphocytes # (auto) 0.99 K/uL (1.2-3.4); Lymphocytes % (auto) 2.5 %; Monocytes % (auto) 1.8 %; Neutrophils # (auto) 36.09 K/uL (1.40-6.50); Neutrophils % (auto) 92.8 %; Polychromasia 1+
[2022-08-19] MEDS: PANTOprazole 40 MG TAB PO SCH (05:52)
--- NOTE | 2022-08-19 06:43 | Electrocardiogram Report ---
Test Reason : Blood Pressure : / mmHG Vent. Rate : 155 BPM Atrial Rate : 155 BPM P-R Int : 112 ms QRS Dur : 072 ms QT Int : 318 ms P-R-T Axes : 048 010 065 degrees QTc Int : 510 ms Sinus tachycardia Nonspecific ST and T wave abnormality Abnormal ECG When compared with ECG of 27-JUL-2022 20:03, Vent. rate has increased BY [address] no longer elevated in Lateral leads Nonspecific T wave abnormality now evident in Lateral leads Confirmed by Andrea Huffman ([id number]) on 08/19/2022 6:43:11 AM Referred By: REFERRED SELF Confirmed By:Raghavendra Huffman
--- NOTE | 2022-08-19 08:01 | XRay Report ---
XR chest 1V portable HISTORY: 71 years-old Male hyponatremia COMPARISON: 07/27/2022 TECHNIQUE: AP view of the chest FINDINGS: Cardiac silhouette is enlarged. No pneumothorax, pleural effusion or overt pulmonary edema. Degenerat cindi changes of the shoulders and spine. IMPRESSION: No acute process. ACT 112: Negative or not required by law. The above report was generated using voice recognition software. It may contain grammatical, syntax o r spelling errors. Electronically signed by: Jae Zabala M.D. 08/19/2022 8:00 AM
[2022-08-19] MEDS: allopurinoL 100 MG TAB PO SCH (08:11)
[2022-08-19] MEDS: DOCUSATE SODIUM/SENNA 50/8.6MG TAB PO SCH ×2 (08:12→21:16)
[2022-08-19] MEDS: VITAMIN B COMPLEX TAB PO SCH (08:12)
[2022-08-19] MEDS: THIAMINE HCL 50 MG TABLET PO SCH (08:13)
[2022-08-19] MEDS: SODIUM CHLORIDE 0.9% 1000ML 1,000 ML IV SCH (08:50)
[2022-08-19] MEDS ORDERED: amLODIPine BESYLATE 5 MG TAB PO SCH (09:00)
--- NOTE | 2022-08-19 09:01 | Urology Progress Note ---
Date of Service August 19, 2022 Assessment & Plan (1) Acute urinary retention: Plan: Urinary retention currently managed with Nash catheter. I suspect this is the path of least resistance, which is why there is no output from the nephrostomy tube. Previously he had issues with clots in the bladder causing obstruction of his Nash. If this recurs, he may need exchange of his nephroureteral catheter which would be done by interventional radiology. For now, if he remains comfortable, catheter can remain in place and he can follow-up with outside urologist. (2) Sepsis: Plan: Marked leukocytosis this morning. Agree with blood and urine cultures and broad-spectrum antibiotics as well as antifungals (given yeast on urinalysis). At this point, if it is urologic in origin, we should have source control with Nash catheter. If he has worsening infection symptoms could consider reimaging. If further drainage is needed, he would likely require transfer for replacement of nephroureteral catheter by interventional radiology. (3) Bladder cancer: Plan: Bladder cancer is managed by [facility] urology. At this point I would defer to their management which can be done as an outpatient. (4) Hydronephrosis: (5) Obstructed nephrostomy tube: Admission and Anticipated Discharge Date Admission Date: August 18, 2022 Subjective Feeling well this morning, denies any flank pain Reports recent fevers and chills New leukocytosis (WBC 38.91) Nash catheter remains in place and is draining blood-tinged urine. Creatinine stable Blood and urine cultures pending, currently being treated with fluconazole and Zosyn Review of Systems Review of Systems: 12 point review of systems negative except for otherwise indicated. Physical Exam Physical Exam: Frail-appearing, NAD Genitourinary: Nash catheter draining blood-tinged urine with no clots, no output from right nephrostomy tube. Results & Data Vital Signs (Past 12 Hours) Vital Signs Temp Pulse Pulse Resp BP BP Pulse Ox 08/19/22 08:07 36.4 C L 79 20 114/67 99 08/19/22 01:16 104 H 08/19/22 05:45 36.7 C 82 20 98/59 L 98 08/19/22 04:20 82 93/56 L 08/19/22 03:50 36.7 C 84 18 81/55 L 96 08/19/22 02:30 36.9 C 94 H 18 73/46 L 96 08/19/22 01:15 37.8 C H 109 H 14 87/54 L 96 08/19/22 01:15 08/19/22 00:40 115 H 18 108/55 L 95 08/19/22 00:20 114 H 16 96 08/19/22 00:00 153 H 24 134/85 97 08/18/22 23:56 155 H 24 159/104 H 97 08/19/22 00:13 37.9 C H 08/19/22 00:07 154 H 134/85 08/18/22 23:45 37.6 C H 08/18/22 23:34 37.2 C 150 H 20 157/117 H 100 08/18/22 23:00 96 H 20 142/67 H 97 08/18/22 21:01 36.4 C L 92 H 18 164/84 H 98 Pulse Ox O2 Del Method O2 Del Method 08/19/22 08:07 Room Air 08/19/22 01:16 08/19/22 05:45 Room Air 08/19/22 04:20 08/19/22 03:50 Room Air 08/19/22 02:30 Room Air 08/19/22 01:15 Room Air 08/19/22 01:15 96 Room Air 08/19/22 00:40 08/19/22 00:20 08/19/22 00:00 08/18/22 23:56 08/19/22 00:13 08/19/22 00:07 08/18/22 23:45 08/18/22 23:34 08/18/22 23:00 08/18/22 21:01 Room Air PG Care Time/CCT Total # of Minutes Spent Total Time Spent with Patient: Total time spent is greater than 50% in coordination of care (as documented) at patient's floor/unit and/or counseling patient: Coding Level of Care Code 30111 SUB INP/OBS CARE 2/35MIN Diagnoses Acute urinary retention R33.8 Sepsis A41.9 Bladder cancer C67.9 Hydronephrosis N13.30 Hydronephrosis type: unspecified Obstructed nephrostomy tube T83.092A (4) Hydronephrosis Hydronephrosis type: unspecified Qualified Code(s): N13.30 - Unspecified hydronephrosis
[2022-08-19] MEDS ORDERED: SODIUM CHLORIDE 0.9% 250 ML IV PRN (10:29)
--- NOTE | 2022-08-19 12:52 | Hospitalist Progress Note ---
Date of Service August 19, 2022 Assessment & Plan (1) Sepsis: Plan: Recurrent complicated UTI Sepsis Chronic Obstructive uropathy/moderate bilateral hydroureteronephrosis H/O Metastatic Bladder cancer, right hydronephrosis S/P status post percutaneous nephroureteral tube placement --CT ABD:A right-sided percutaneous nephrostomy tube and right ureteral stent are in place. There is moderate bilateral hydroureteronephrosis. This has increased as compared to 07/31/2022. There is nonspecific urothelial thickening in the right ureter with associated perinephric and periureteric stranding. This could be related to the presence of indwelling catheters. Correlate with clinical findings and urinalysis for evidence of superimposed infection. 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 Soft tissue thickening and fluid extends inferiorly from the bladder into the anterior pelvis and inferiorly into the prostate and perineum. This likely represents a combination of tumor and urine, and there is associated erosive change within the pubic symphysis bilaterally. Correlate clinically for evidence of superimposed infection These findings are similar to previous. Correlate clinically. Mild enlarged pelvic lymph nodes are unchanged and likely represent metastatic disease. There are also mildly enlarged retroperitoneal lymph nodes. Hepatosplenomegaly. Cholelithiasis. Cardiomegaly with pericardial effusion. The rectal wall is circumferentially thickened with surrounding inflammation. This could be treatment related. Correlate clinically for evidence of a nonspecific proctitis. -Blood Cx:pending -Urine Cx:Pending Normal lactate levels Continue Zosyn, fluconazole Appreciate urology input If obstruction worsens, will need nephroureteral catheter exchange by IR at tertiary care facility Consulted ID Acute on chronic anemia Acute blood loss anemia Hematuria secondary to metastatic disease/UTI Hemoglobin 7.1 We will transfuse 1 unit PRBC Monitor H&H and transfuse as needed Chronic hyponatremia Sodium at baseline Monitor sodium level CKD III Creatinine at baseline Monitor renal function Avoid nephrotoxic agents as able Hypertension Blood pressure low Hold amlodipine Monitor Metastatic bladder cancer S/P bladder tumor fulguration, immunotherapy with Keytruda Prostate cancer S/P radiation Follows with [facility] oncology as outpatient DM II Last HbA1c 7.6 as per records Hold oral medications Continue insulin per protocol Monitor BgS Constipation Continue bowel regimen DVT Px: SCDs Re: Hematuria, anemia Code Status Full code Admission and Anticipated Discharge Date Admission Date: August 18, 2022 Subjective Patient is seen and examined at bedside Having hematuria during my encounter Flank/groin pain resolved Constipation resolved as well Eager to get discharged Updated patient's over the phone Denies any chest pain, dyspnea, dizziness, nausea Plan to transfuse 1 unit PRBC today Review of Systems Review of Systems: All systems reviewed & are unremarkable except as noted in Subjective Physical Exam Physical Exam: Physical Exam: Vitals signs as noted above General Appearance:Moderately built and nourished, chronically appearing, no apparent distress Head: normocephalic, Atraumatic Eyes: normal inspection, EOMI Neck: supple, Trachea midline Respiratory/Chest: Normal breath sounds, CTA, No accessory muscle use Cardiovascular: S1, S2, No murmur Abdomen/GI:Soft, Non tender, Bowel sounds present, + right nephrostomy tube Extremities/Musculoskeletal:normal inspection, no edema Neurologic/Psych:AAOX3, grossly no focal neurological deficits Skin: normal color, warm Results & Data Results & Data Vital Signs (Past 12 Hours) Vital Signs Temp Pulse Pulse Resp BP Pulse Ox Pulse Ox 08/19/22 11:09 36.8 C 62 17 113/68 97 08/19/22 08:07 36.4 C L 79 20 114/67 99 08/19/22 01:16 104 H 08/19/22 05:45 36.7 C 82 20 98/59 L 98 08/19/22 04:20 82 93/56 L 08/19/22 03:50 36.7 C 84 18 81/55 L 96 08/19/22 02:30 36.9 C 94 H 18 73/46 L 96 08/19/22 01:15 37.8 C H 109 H 14 87/54 L 96 08/19/22 01:15 96 O2 Del Method O2 Del Method 08/19/22 11:09 Room Air 08/19/22 08:07 Room Air 08/19/22 01:16 08/19/22 05:45 Room Air 08/19/22 04:20 08/19/22 03:50 Room Air 08/19/22 02:30 Room Air 08/19/22 01:15 Room Air 08/19/22 01:15 Room Air
[2022-08-19 18:42] LABS: Hematocrit (blood only) 25.3 % (42.0-52.0); Hemoglobin 8.1 g/dl (14.0-18.0)
[2022-08-19] MEDS ORDERED: oxyCODONE HCL IR 5 MG TAB (IMMEDIATE RELEASE) PO PRN (20:59)
--- NOTE | 2022-08-19 21:23 | Communication Note ---
Date of Service: August 19, 2022
--- NOTE | 2022-08-20 01:12 | CT Scan Report ---
Exam(s): CT ABDOMEN + PELVIS Without Contrast EXAM: CT Abdomen and Pelvis Without Intravenous Contrast CLINICAL HISTORY: Reason for exam: worseing R flank pain, hematuria. TECHNIQUE: Axial computed tomography images of the abdomen and pelvis without intravenous contrast. CTDI is 21.88 mGy and DLP is 1008.14 mGy-cm. Automated exposure control was utilized for the study. A dose lowering technique was utilized adhering to the principles of ALARA. COMPARISON: CT abdomen and pelvis 08/18/22 FINDINGS: There is a stable small pericardial effusion. Low-attenuation of the cardiac blood pool is compatible with anemia. Lung bases are clear. There is cholelithiasis without cholecystitis or biliary dilatation. There is stable hepatomegaly. There is a stable left hepatic lobe cyst. There is stable splenomegaly. Pancreas and adrenal glands are unremarkable. There is mild-moderate bilateral hydroureteronephrosis without radiopaque stone. A right percutaneous nephrostomy tube remains in place. Perinephric stranding is stable. Prostate is enlarged and heterogeneous with evidence of prior TURP and in situ brachytherapy seeds, as on prior exam. There is a regular mucosal thickening at the base of the bladder. A Nash catheter has been placed. Enlarged bilateral pelvic sidewall lymph nodes are stable. Appendix is normal. There is no bowel obstruction or inflammation. There is diverticulosis without diverticulitis. There is atherosclerosis without aortic aneurysm. There is no free air. There is trace free pelvic fluid. Bones are osteopenic. There are no acute osseous findings or suspicious osseous lesions. Anasarca is noted. IMPRESSION: 1. Interval placement of Nash urinary catheter. Otherwise, no substantial change from prior exam. 2. Mild-moderate bilateral hydroureteronephrosis. Right nephrostomy tube in place. Perinephric stranding is stable. Correlate with urinalysis. 3. Masslike wall thickening at the bladder base concerning for malignancy. Stable enlarged pelvic lymph nodes. 4. Brachytherapy seeds in the prostate. Suggestion of previous TURP. 5. Anemia. Electronically signed by: Nancy Beckford M.D. 08/20/22 01:10 AM
[2022-08-20] MEDS: SODIUM CHLORIDE 0.9% 1000ML 1,000 ML IV SCH (04:40)
[2022-08-20] MEDS: PIPERACILLIN/TAZOBACTAM 4.5 GM in DEXTROSE 5% 100 ML IV SCH ×3 (04:40→19:22)
[2022-08-20 06:29] LABS: Basophils # (auto) 0.21 K/uL (0-0.2); Basophils % (auto) 1.1 %; Eosinophils # (auto) 0.59 K/uL (0-0.50); Eosinophils % (auto) 3.1 %; Hematocrit (blood only) 24.6 % (42.0-52.0); Hemoglobin 7.8 g/dl (14.0-18.0); Immature Granulocytes # (auto) 0.13 K/uL (0.01-0.20); Immature Granulocytes % (auto) 0.7 %; Lymphocytes # (auto) 1.96 K/uL (1.2-3.4); Lymphocytes % (auto) 10.2 %; Mean Corpuscular Hemoglobin 24.8 pg (25.0-34.0); Mean Corpuscular Hgb Conc 31.7 g/dL (32.0-36.0); Mean Corpuscular Volume 78.1 fL (80.0-100.0); Mean Platelet Volume 8.4 fL (9.4-12.4); Monocytes # (auto) 0.69 K/uL (0.11-0.59); Monocytes % (auto) 3.6 %; Neutrophils # (auto) 15.56 K/uL (1.40-6.50); Neutrophils % (auto) 81.3 %; Platelet Count 262 K/uL (130-400); RDW Coefficient of Variation 20.2 % (11.5-14.5); RDW Standard Deviation 57.9 fL (36.4-46.3); Red Blood Count 3.15 M/uL (4.70-6.10); White Blood Count 19.14 K/ul (4.8-10.8)
[2022-08-20 06:42] LABS: BUN Creatinine Ratio 26.2 (10-20); Calcium 8.7 mg/dl (8.6-10.3); Creatinine Clr Calc Pharmacy 23.9 ml/min; Est GFR (African American) 25.4 ml/min; Est GFR (Non-African American) 21.9 ml/min; Potassium 4.3 mmol/L (3.5-5.1)
[2022-08-20 06:48] LABS: Anisocytosis Present
[2022-08-20] MEDS: PANTOprazole 40 MG TAB PO SCH (07:09)
[2022-08-20] MEDS: FLUCONAZOLE 200 MG/100 ML BAG IV SCH (07:09)
[2022-08-20] MEDS: allopurinoL 100 MG TAB PO SCH (08:20)
[2022-08-20] MEDS: THIAMINE HCL 50 MG TABLET PO SCH (08:20)
[2022-08-20] MEDS: VITAMIN B COMPLEX TAB PO SCH (08:20)
[2022-08-20] MEDS: INSULIN ASPART PER UNIT CHARGE SC SCH ×4 (08:23→20:20)
--- NOTE | 2022-08-20 08:25 | Urology Progress Note ---
Date of Service August 20, 2022 Assessment & Plan (1) Acute urinary retention: Plan: Urinary retention currently managed with Nash catheter. Had some issues with clots overnight, but seems to be improved at this point. He will likely blush intermittently. He should try to stay well-hydrated to keep the urine dilute. If he has persistent issues with clots, he may require exchange of the nephroureteral catheter with interventional radiology. (2) Sepsis: Plan: Leukocytosis improving on fluconazole and ceftriaxone. Follow-up blood and urine cultures and broad-spectrum antibiotics as well as antifungals (given yeast on urinalysis). CT scan did not suggest any large reservoir of undrained possible infection. Would continue current management for now. (3) Bladder cancer: Plan: Bladder cancer is managed by [facility] urology. At this point I would defer to their management which can be done as an outpatient. He has an appointment this upcoming week; hopefully he can be discharged in time to get to this appointment.. (4) Hydronephrosis: (5) Obstructed nephrostomy tube: Admission and Anticipated Discharge Date Admission Date: August 18, 2022 Subjective Feeling okay this morning, denies fevers or chills Had some clots in the Nash catheter overnight, able to clear with gentle hand irrigation Currently feeling well this morning Leukocytosis improving (19.14), creatinine close to baseline Urine culture with Hilda sp, on fluconazole No growth in blood cultures Physical Exam Physical Exam: Resting in bed, NAD Genitourinary: Nash catheter in place draining clear pink urine Results & Data Vital Signs (Past 12 Hours) Vital Signs Temp Pulse Resp BP Pulse Ox O2 Del Method 08/20/22 07:51 36.9 C 67 18 128/67 99 Room Air 08/20/22 03:22 36.4 C L 67 20 123/67 98 Room Air 08/19/22 22:45 36.7 C 72 18 126/70 99 Room Air PG Care Time/CCT Total # of Minutes Spent Total Time Spent with Patient: Total time spent is greater than 50% in coordination of care (as documented) at patient's floor/unit and/or counseling patient: Coding Level of Care Code 60010 SUB INP/OBS CARE 1/25MIN Diagnoses Acute urinary retention R33.8 Sepsis A41.9 Bladder cancer C67.9 Hydronephrosis N13.30 Hydronephrosis type: unspecified Obstructed nephrostomy tube T83.092A (4) Hydronephrosis Hydronephrosis type: unspecified Qualified Code(s): N13.30 - Unspecified hydronephrosis
--- NOTE | 2022-08-20 14:58 | Hospitalist Progress Note ---
Date of Service August 20, 2022 Assessment & Plan (1) Sepsis: Plan: Recurrent complicated UTI Sepsis Chronic Obstructive uropathy/moderate bilateral hydroureteronephrosis H/O Metastatic Bladder cancer, right hydronephrosis S/P status post percutaneous nephroureteral tube placement --CT ABD:A right-sided percutaneous nephrostomy tube and right ureteral stent are in place. There is moderate bilateral hydroureteronephrosis. This has increased as compared to 07/31/2022. There is nonspecific urothelial thickening in the right ureter with associated perinephric and periureteric stranding. This could be related to the presence of indwelling catheters. Correlate with clinical findings and urinalysis for evidence of superimposed infection. 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 Soft tissue thickening and fluid extends inferiorly from the bladder into the anterior pelvis and inferiorly into the prostate and perineum. This likely represents a combination of tumor and urine, and there is associated erosive change within the pubic symphysis bilaterally. Correlate clinically for evidence of superimposed infection These findings are similar to previous. Correlate clinically. Mild enlarged pelvic lymph nodes are unchanged and likely represent metastatic disease. There are also mildly enlarged retroperitoneal lymph nodes. Hepatosplenomegaly. Cholelithiasis. Cardiomegaly with pericardial effusion. The rectal wall is circumferentially thickened with surrounding inflammation. This could be treatment related. Correlate clinically for evidence of a nonspecific proctitis. -Blood Cx:No growth to date -Urine Cx: Hilda albicans Normal lactate levels Continue Zosyn, fluconazole for now Appreciate urology input If obstruction worsens, will need nephroureteral catheter exchange by IR at tertiary care facility Consulted ID--pending Needs follow-up with urology upon discharge Hematuria improving Acute on chronic anemia Acute blood loss anemia Hematuria secondary to metastatic disease/UTI Hemoglobin 7.1>7.8 S/P 1 unit PRBC Monitor H&H and transfuse as needed Chronic hyponatremia Sodium at baseline Monitor sodium level Sodium 134 today CKD III Creatinine at baseline Monitor renal function Avoid nephrotoxic agents as able Hypertension Blood pressure stable Hold amlodipine Monitor Metastatic bladder cancer S/P bladder tumor fulguration, immunotherapy with Keytruda Prostate cancer S/P radiation Follows with [facility] oncology as outpatient DM II Last HbA1c 7.6 as per records Hold oral medications Continue insulin per protocol Monitor BgS Constipation Continue bowel regimen DVT Px: SCDs Re: Hematuria, anemia Code Status Full code Admission and Anticipated Discharge Date Admission Date: August 18, 2022 Subjective Patient is seen and examined at bedside Nash catheter clogged overnight secondary to clots, later cleared with hand irrigation Hematuria improving Denies any recurrence of flank/groin pain Updated patient's daughter at bedside and patient's over the phone today Denies any chest pain, dyspnea, dizziness, nausea Review of Systems Review of Systems: All systems reviewed & are unremarkable except as noted in Subjective Physical Exam Physical Exam: Physical Exam: Vitals signs as noted above General Appearance:Moderately built and nourished, chronically appearing, no apparent distress Head: normocephalic, Atraumatic Eyes: normal inspection, EOMI Neck: supple, Trachea midline Respiratory/Chest: Normal breath sounds, CTA, No accessory muscle use Cardiovascular: S1, S2, No murmur Abdomen/GI:Soft, Non tender, Bowel sounds present, + right nephrostomy tube Extremities/Musculoskeletal:normal inspection, no edema Neurologic/Psych:AAOX3, grossly no focal neurological deficits Skin: normal color, warm Results & Data Results & Data Vital Signs (Past 12 Hours) Vital Signs Temp Pulse Resp BP Pulse Ox O2 Del Method 08/20/22 11:23 36.7 C 67 18 122/70 99 Room Air 08/20/22 07:51 36.9 C 67 18 128/67 99 Room Air 08/20/22 03:22 36.4 C L 67 20 123/67 98 Room Air Laboratory Results Short CBC 08/19/22 08/20/22 Range/Units 17:53 06:09 WBC 19.14 H (4.8-10.8) K/ul Hgb 8.1 L 7.8 L (14.0-18.0) g/dl Hct 25.3 L 24.6 L (42.0-52.0) % Plt Count 262 (130-400) K/uL BMP 08/20/22 06:09 Sodium 134 L Potassium 4.3 Chloride 107 Carbon Dioxide 18 L BUN 72 H Creatinine 2.75 H Glucose 116 H Calcium 8.7
[2022-08-21] MEDS: PIPERACILLIN/TAZOBACTAM 4.5 GM in DEXTROSE 5% 100 ML IV SCH ×2 (03:34→11:13)
[2022-08-21] MEDS: FLUCONAZOLE 200 MG/100 ML BAG IV SCH (05:30)
[2022-08-21] MEDS: PANTOprazole 40 MG TAB PO SCH (05:30)
[2022-08-21 06:39] LABS: Basophils # (auto) 0.21 K/uL (0-0.2); Basophils % (auto) 0.9 %; Eosinophils % (auto) 2.2 %; Hematocrit (blood only) 27.1 % (42.0-52.0); Hemoglobin 8.4 g/dl (14.0-18.0); Immature Granulocytes % (auto) 0.9 %; Lymphocytes # (auto) 2.07 K/uL (1.2-3.4); Lymphocytes % (auto) 9.2 %; Mean Corpuscular Hemoglobin 24.6 pg (25.0-34.0); Mean Corpuscular Volume 79.5 fL (80.0-100.0); Mean Platelet Volume 8.2 fL (9.4-12.4); Monocytes # (auto) 0.97 K/uL (0.11-0.59); Monocytes % (auto) 4.3 %; Neutrophils # (auto) 18.58 K/uL (1.40-6.50); Neutrophils % (auto) 82.5 %; Platelet Count 282 K/uL (130-400); RDW Coefficient of Variation 20.7 % (11.5-14.5); RDW Standard Deviation 60.3 fL (36.4-46.3); Red Blood Count 3.41 M/uL (4.70-6.10); White Blood Count 22.53 K/ul (4.8-10.8)
[2022-08-21 06:55] LABS: BUN Creatinine Ratio 20.8 (10-20); Calcium 8.7 mg/dl (8.6-10.3); Creatinine Clr Calc Pharmacy 20.4 ml/min; Est GFR (Non-African American) 18.1 ml/min; Potassium 4.4 mmol/L (3.5-5.1)
[2022-08-21 07:02] LABS: Echinocytes 1+
[2022-08-21] MEDS: allopurinoL 100 MG TAB PO SCH (08:00)
[2022-08-21] MEDS: INSULIN ASPART PER UNIT CHARGE SC SCH ×3 (08:00→16:02)
[2022-08-21] MEDS: THIAMINE HCL 50 MG TABLET PO SCH (08:00)
[2022-08-21] MEDS: VITAMIN B COMPLEX TAB PO SCH (08:01)
[2022-08-21] MEDS ORDERED: LACTATED RINGER'S 1,000 ML IV SCH (10:00)
--- NOTE | 2022-08-21 10:31 | Nephrology Consultation ---
Date of Consultation August 21, 2022 Assessment & Plan (1) Acute kidney injury superimposed on CKD: Baseline creatinine is 2.[address] Teran's most recent note and based on my review of lab trends inpatient and outpatient since mid July 2022. Stage 1 GUSTAVO from ischemic ATN in the setting of hemodynamic instability on presentation >> the pt had about 10 out of 12 hours of hypotension on 08/19 w/ SBP in 80-90s in the wake of F and tachycardia which occurred just after he presented; he is still w/in the 48 hr window where these changes can affect renal function. This diagnosis is based on clinical picture, since it will be very difficult to use extremely inflamed urine w/ active lower tract CA to interpret current status. -d/c IV fluids -if VS remain stable, he can be d/c w/ close f/u as below NEPH D/C RECS -check bmp, uric acid on 08/24 or 08/23 > labs to be ordered by neph RN >> and again w/ PCP appt next week -close in f/u / hospital discharge appt with Dr Teran in 2 weeks >OK to resume prior to admission meds EXCEPT would lower amlodipine to 2.5 mg daily to start (2) Hydronephrosis due to obstructive malignant bladder cancer: Important that he get to appt tomorrow w/ Dr Calvo and continue to f/u w/ Dr Weiss. (3) CKD (chronic kidney disease) stage 4, GFR 15-29 ml/min: baseline creatinine CKD 4 w/ moderate ESRD risk, dependent mostly on cancer status -continue neph f/u History of Present Illness Reason for Consultation: GUSTAVO on CKD Requesting Physician: Dr White Attending Physician: Rodger White MD History of Present Illness 71-year-old male whom I am asked to see for acute on chronic renal failure was admitted on August 18 with sepsis from recurrent complicated UTIs. Past medical history includes active bladder cancer on therapy with Keytruda from Dr Cortes Weiss, bilateral hydronephrosis status post right nephrostomy tube, hypertension, prostate cancer 2014 status post radiation, chronic renal i nsufficiency stage 4 baseline creatinine 2.7 most recently, chronic hyponatremia, type 2 diabetes>10 years, past alcohol abuse, HL, HTN, gout. This is his third admission in a month for renal insufficiency and complicated UTI; admitted here most recently August 11 to for same; he had new onset gross hematuria at that admission. he follows w/ Dr Teran in CKD clinic, last seen 08/16. On admission the patient was noted to have worsening hydronephrosis with minimal nephrostomy tube drainage despite tube change and irrigation in the ER. Transfer to tertiary care center recommended for tube exchange but no beds were available. The patient was tachycardic to the 150s with fever to 37 9 in the ER. His presenting creatinine was 2.5, up to 3.2 today. This was an abrupt increase from yesterday when labs were 2.8 creatinine. His white count has run steadily above 20,000 since the middle of last month. His white count has run above 20,000 since the middle of last month with the exception of yesterday when it was 19,000. Today WBC are 22.5 thousand. Apart from the Hilda finding on the urine, other urine and blood cultures have all been negative at [facility] since July 27, 2022, when he had a Klebsiella UTI and bacteremia. For urosepsis he is currently being treated with fluconazole and ceftriaxone; urine culture grew Hilda species with no other Hilda infections isolated. Infectious diseases consultation is pending. He is for upcoming outpatient urology follow-up with [facility], with an appointment tomorrow. He is extremely depressed but denies shortness of breath, n/v, inability to void (750 mL uop since last evening per RN today); edema, palpitations, rash, flank pain on either side; denies constipation or abdominal pain. Allergies Allergy/AdvReac Type Severity Reaction Status Date / Time No Known Allergies Allergy Verified 08/18/22 22:07 Home Medications Medication Instructions Recorded Confirmed Type allopurinol 100 mg tablet 100 mg PO QAM 01/02/22 08/18/22 History cinnamon bark 500 mg capsule 2,000 mg PO DAILY 01/02/22 08/18/22 History (Cinnamon) omeprazole 20 mg capsule,delayed 20 mg PO DAILYBB 01/02/22 08/18/22 History release vitamin B complex 1 cap PO DAILY 01/02/22 08/18/22 History acetaminophen 500 mg tablet 1,000 mg PO TID PRN Pain 07/27/22 08/18/22 History (Tylenol Extra Strength) amlodipine 5 mg tablet 5 mg PO DAILY 07/27/22 08/18/22 History linagliptin 5 mg tablet (Tradjenta) 5 mg PO DAILY 07/27/22 08/18/22 History sodium chloride 0.9 % (flush) 10 ml intra-catheter BID 07/27/22 08/18/22 History thiamine HCl (vitamin B1) 50 mg 50 mg PO DAILY 07/27/22 08/18/22 History tablet lactobacillus combination no.4 3 3,000 mmu cells PO DAILY 7 days #7 08/14/22 08/18/22 Rx billion cell capsule (Probiotic) caps ciprofloxacin HCl 500 mg tablet 500 mg PO TID 08/18/22 08/18/22 History (Cipro) Patient History Medical History (Updated 08/21/22 @ 13:00 by Rani Xiong MD, PhD) Bladder cancer CKD (chronic kidney disease) stage 4, GFR 15-29 ml/min Diabetes mellitus DMII (diabetes mellitus, type 2) Dyslipidemia GERD (gastroesophageal reflux disease) Gout H/O prostate cancer HTN (hypertension) Hydronephrosis due to obstructive malignant bladder cancer Melanoma Protein calorie malnutrition Surgical History H/O cystoscopy 12/2021 with fulguration of bladder tumor 11/2021 witth fulguration of bladder tumor H/O umbilical hernia repair History of mandibular surgery 1975 S/P urological surgery IR drainage catheter change right, 02/22 place percutaneous nephrostomy tube- GL Family History Brother Cancer Social History Smoking Status: Never smoker Tobacco Type: Smokeless Tobacco (Dip or Chew) Hx Alcohol Use: No Hx Substance Use: No Preferred Language: Maori Communication Ability: Effective Charge Gang 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 Required: No Beliefs That Will Affect Care: None Current Living Situation: Alone Other Information That Helps Us Care for You: No Feels Safe at Home: Yes Assistive Devices: None Review of Systems Review of Systems: All systems reviewed & are unremarkable except as noted in HPI & below Physical Exam Constitutional: well developed and well nourished; no acute distress Eyes: EOM intact bilaterally ENMT: Ears: no external ear abnormality Nose: no external nose abnormality Mouth: + dry oral mucous membranes Neck: no nuchal rigidity Respiratory: normal respiratory effort Auscultation: + diminished lung sounds Cardiovascular: RRR, no murmur, no edema Gastrointestinal (Abdomen): Inspection/Auscultation: normal bowel sounds Percussion/Palpation: abdomen soft; abdomen nontender Musculoskeletal: Extremities: strength 5/5 throughout Skin: no rashes, warm and dry Neurologic: iglesias, fluent speech, no tremor Psychiatric: Orientation: alert and oriented x 3 Speech: normal rate/rhythm/volume of speech Affect: + depressed affect Genitourinary: R nephrostomy tube in place; Nash w / bright red urine, no clots Results & Data Vital Signs (Past 12 Hours) Vital Signs Temp Pulse Pulse Resp BP Pulse Ox O2 Del Method 08/21/22 07:16 36.7 C 85 19 141/77 H 95 Room Air 08/21/22 03:45 37.5 C 89 17 141/72 H 95 Room Air 08/21/22 02:04 78 08/20/22 23:41 37.1 C 81 17 147/79 H 97 Room Air Laboratory Results 08/21/22 06:08 08/21/22 06:[address] c/a/p no con 6 There is a stable small pericardial effusion. Low-attenuation of the cardiac blood pool is compatible with anemia. Lung bases are clear. There is cholelithiasis without cholecystitis or biliary dilatation. There is stable hepatomegaly. There is a stable left hepatic lobe cyst. There is stable splenomegaly. Pancreas and adrenal glands are unremarkable. There is mild-moderate bilateral hydroureteronephrosis without radiopaque stone. A right percutaneous nephrostomy tube remains in place. Perinephric stranding is stable. Prostate is enlarged and heterogeneous with evidence of prior TURP and in situ brachytherapy seeds, as on prior exam. There is a regular mucosal thickening at the base of the bladder. A Nash catheter has been placed. Enlarged bilateral pelvic sidewall lymph nodes are stable. Appendix is normal. There is no bowel obstruction or inflammation. There is diverticulosis without diverticulitis. There is atherosclerosis without aortic aneurysm. There is no free air. There is trace free pelvic fluid. Bones are osteopenic. There are no acute osseous findings or suspicious osseous lesions. Anasarca is noted. IMPRESSION: 1. Interval placement of Nash urinary catheter. Otherwise, no substantial change from prior exam. 2. Mild-moderate bilateral hydroureteronephrosis. Right nephrostomy tube in place. Perinephric stranding is stable. Correlate with urinalysis. 3. Masslike wall thickening at the bladder base concerning for malignancy. Stable enlarged pelvic lymph nodes. 4. Brachytherapy seeds in the prostate. Suggestion of previous TURP. 5. Anemia.
--- NOTE | 2022-08-21 14:24 | Hospitalist Progress Note ---
Date of Service August 21, 2022 Assessment & Plan (1) Sepsis: Plan: Sepsis--Ruled Out H/O Recurrent complicated UTI Chronic Obstructive uropathy/moderate bilateral hydroureteronephrosis H/O Metastatic Bladder cancer, right hydronephrosis S/P status post percutan eous nephroureteral tube placement Hematuria secondary to above --CT ABD:A right-sided percutaneous nephrostomy tube and right ureteral stent are in place. There is moderate bilateral hydroureteronephrosis. This has increased as compared to 07/31/2022. There is nonspecific urothelial thickening in the right ureter with associated perinephric and periureteric stranding. This could be related to the presence of indwelling catheters. Correlate with clinical findings and urinalysis for evidence of superimposed infection. 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 Soft tissue thickening and fluid extends inferiorly from the bladder into the anterior pelvis and inferiorly into the prostate and perineum. This likely represents a combination of tumor and urine, and there is associated erosive change within the pubic symphysis bilaterally. Correlate clinically for evidence of superimposed infection These findings are similar to previous. Correlate clinically. Mild enlarged pelvic lymph nodes are unchanged and likely represent metastatic disease. There are also mildly enlarged retroperitoneal lymph nodes. Hepatosplenomegaly. Cholelithiasis. Cardiomegaly with pericardial effusion. The rectal wall is circumferentially thickened with surrounding inflammation. This could be treatment related. Correlate clinically for evidence of a nonspecific proctitis. -Blood Cx:No growth to date -Urine Cx: Hilda albicans Normal lactate levels Continue Zosyn, fluconazole: Discontinued as advised by ID Appreciate urology input If obstruction worsens, will need nephroureteral catheter exchange by IR at tertiary care facility Appreciate ID Input Hematuria improving Hb stable Has follow-up with Urology, Dr. Calvo tomorrow as outpatient Acute on chronic anemia Acute blood loss anemia Hematuria secondary to metastatic disease/UTI Hemoglobin 7.1>7.8>8.4 S/P 1 unit PRBC Monitor H&H and transfuse as needed Chronic hyponatremia Sodium at baseline Monitor sodium level Sodium 135 today GUSTAVO on CKD III Baseline Cr 2.7 Likely Ischemic ATN Monitor renal function Avoid nephrotoxic agents as able Appreciate Nephrology Input Advised to follow-up with nephrology in 2 weeks as outpatient Hypertension Blood pressure stable Plan to decrease to amlodipine 2.5mg daily upon discharge Monitor Metastatic bladder cancer S/P bladder tumor fulguration, immunotherapy with Keytruda Prostate cancer S/P radiation Follows with [facility] oncology as outpatient DM II Last HbA1c 7.6 as per records Hold oral medications Continue insulin per protocol Monitor BgS Constipation Continue bowel regimen DVT Px: SCDs Re: Hematuria, anemia Code Status Full code Disposition Home Admission and Anticipated Discharge Date Admission Date: August 18, 2022 Subjective Patient is seen and examined at bedside No new complaints Hb stable Discussed with ID, Oncology, Urology and Nephrology today Updated patient's family over the phone Denies any chest pain, dyspnea, dizziness, nausea Review of Systems Review of Systems: All systems reviewed & are unremarkable except as noted in Subjective Physical Exam Physical Exam: Physical Exam: Vitals signs as noted above General Appearance:Moderately built and nourished, chronically appearing, no apparent distress Head: normocephalic, Atraumatic Eyes: normal inspection, EOMI Neck: supple, Trachea midline Respiratory/Chest: Normal breath sounds, CTA, No accessory muscle use Cardiovascular: S1, S2, No murmur Abdomen/GI:Soft, Non tender, Bowel sounds present, + right nephrostomy tube Extremities/Musculoskeletal:normal inspection, no edema Neurologic/Psych:AAOX3, grossly no focal neurological deficits Skin: normal color, warm Results & Data Results & Data Vital Signs (Past 12 Hours) Vital Signs Temp Pulse Resp BP Pulse Ox O2 Del Method 08/21/22 10:59 36.6 C 83 18 137/74 97 Room Air 08/21/22 07:16 36.7 C 85 19 141/77 H 95 Room Air 08/21/22 03:45 37.5 C 89 17 141/72 H 95 Room Air Laboratory Results Short CBC 08/21/22 Range/Units 06:08 WBC 22.53 H (4.8-10.8) K/ul Hgb 8.4 L (14.0-18.0) g/dl Hct 27.1 L (42.0-52.0) % Plt Count 282 (130-400) K/uL BMP 08/21/22 06:08 Sodium 135 L Potassium 4.4 Chloride 108 H Carbon Dioxide 18 L BUN 67 H Creatinine 3.22 H D Glucose 149 H Calcium 8.7
--- NOTE | 2022-08-21 14:48 | Discharge Summary ---
Date of Service August 21, 2022 Admission HPI Per Admitting Provider History obtained from patient and records. Medical history significant for hypertension, bladder cancer on Keytruda, right hydronephrosis status post percutaneous nephroureteral tube placement, prostate cancer status post radiation, DM 2 on oral medications, CRI (baseline creatinine 2,2), chronic hyponatremia, chronic anemia (baseline hemoglobin of 8), past alcohol abuse. Two admissions last month for complicated UTI, kidney dysfunction. Recent confinement August 11 to 2022. No growth on urine CS. Patient discharged on Keflex course. Yesterday, patient noted increasing right flank pain and leakage through neph rostomy tube collection site. Decreased urine catheter bag drainage. Last bowel movement was last week. Patient denies chest pain, SOB. Worsening hydronephrosis noted on CT. Minimal drainage in his nephrostomy bag despite nephrostomy tube change/irrigation at the ER. Nash catheter inserted at the ER following [facility] urologist recommendation with note of 1400 cc of bloody urine drainage. Transfer to tertiary center recommended for nephrostomy tube exchange. As per ER provider, no urologist synchronous motor assembler at [facility] this weekend. No beds at [facility] currently. [facility] urologist on-call (Dr. Pinto) recommended keeping patient at [facility] overnight and discharging patient home with Nash catheter if with good urine drainage and kidney function stable. Patient to keep his follow-up appointment with his local [facility] urologist next week. Patient later noted to be tachycardic (heart rate 150s) and febrile at the ER. 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 Admission Exam Per Admitting Provider GENERAL: Slightly uncomfortable, no respiratory distress SKIN: Pallor, warm HEENT: Pale palpebral conjunctivae, no ptosis, dry buccal mucosa NECK : Supple, no tenderness CHEST : Decreased breath sounds, no tenderness HEART : Tachycardic, no obvious murmurs ABDOMEN: Some distention, right flank tenderness EXTREMITIES : No LE swelling/tenderness, no other conspicuous deformities noted NEUROLOGIC : Coherent, no facial asymmetry, gait and stance not assessed Principal Diagnosis Acute blood loss anemia Hematuria Chronic Obstructive uropathy Constipation GUSTAVO on CKD III Metastatic bladder cancer Discharge Data Allergies Allergy/AdvReac Type Severity Reaction Status Date / Time No Known Allergies Allergy Verified 08/18/22 22:07 Consultations 08/18/22 21:21 ED Decision to Admit Stat 08/19/22 01:17 Consult Urology Routine 08/19/22 02:52 Consult Infectious Diseases Routine 08/21/22 09:54 Consult Nephrology Routine Procedures Performed Laboratory Results WBC 22.53 K/ul (4.8-10.8) H 08/21/22 06:08 RBC 3.41 M/uL (4.70-6.10) L 08/21/22 06:08 Hgb 8.4 g/dl (14.0-18.0) L 08/21/22 06:08 Hct 27.1 % (42.0-52.0) L 08/21/22 06:08 MCV 79.5 fL (80.0-100.0) L 08/21/22 06:08 MCH 24.6 pg (25.0-34.0) L 08/21/22 06:08 MCHC 31.0 g/dL (32.0-36.0) L 08/21/22 06:08 RDW Std Deviation 60.3 fL (36.4-46.3) H 08/21/22 06:08 RDW Coeff of Krystal 20.7 % (11.5-14.5) H 08/21/22 06:08 Plt Count 282 K/uL (130-400) 08/21/22 06:08 MPV 8.2 fL (9.4-12.4) L 08/21/22 06:08 Immature Gran % (Auto) 0.9 % 08/21/22 06:08 Neut % (Auto) 82.5 % 08/21/22 06:08 Lymph % (Auto) 9.2 % 08/21/22 06:08 [place] % (Auto) 4.3 % 08/21/22 06:08 Eos % (Auto) 2.2 % 08/21/22 06:08 Baso % (Auto) 0.9 % 08/21/22 06:08 Neut # (Auto) 18.58 K/uL (1.40-6.50) H 08/21/22 06:08 Lymph # (Auto) 2.07 K/uL (1.2-3.4) 08/21/22 06:08 [place] # (Auto) 0.97 K/uL (0.11-0.59) H 08/21/22 06:08 Eos # (Auto) 0.50 K/uL (0-0.50) 08/21/22 06:08 Baso # (Auto) 0.21 K/uL (0-0.2) H 08/21/22 06:08 Immature Gran # (Auto) 0.20 K/uL (0.01-0.20) 08/21/22 06:08 Polychromasia 1+ 08/19/22 04:13 Anisocytosis Present 08/20/22 06:09 Echinocytes 1+ 08/21/22 06:08 Sodium 135 mmol/L (136-145) L 08/21/22 06:08 Potassium 4.4 mmol/L (3.5-5.1) 08/21/22 06:08 Chloride 108 mmol/L (98-107) H 08/21/22 06:08 Carbon Dioxide 18 mmol/L (21-32) L 08/21/22 06:08 Anion Gap 9 (3-11) 08/21/22 06:08 BUN 67 mg/dl (6-23) H 08/21/22 06:08 Creatinine 3.22 mg/dl (0.6-1.4) H D 08/21/22 06:08 Est Cr Clr Drug Dosing 20.4 ml/min 08/21/22 06:08 Est GFR ( Amer) 21.0 ml/min 08/21/22 06:08 Est GFR (Non-Af Amer) 18.1 ml/min 08/21/22 06:08 BUN/Creatinine Ratio 20.8 (10-20) H 08/21/22 06:08 Glucose 149 mg/dl (70-99(Fasting)) H 08/21/22 06:08 POC Glucose 128 mg/dl (70-99) H 08/21/22 10:57 Lactate 1.1 mmol/L (0.4-2.0) 08/19/22 04:13 Calcium 8.7 mg/dl (8.6-10.3) 08/21/22 06:08 Magnesium 2.0 mg/dl (1.7-2.4) 08/20/22 06:09 Total Bilirubin 0.5 mg/dl (0.2-1.0) 08/18/22 15:56 AST 20 U/L (13-39) 08/18/22 15:56 ALT 15 U/L (7-52) 08/18/22 15:56 Alkaline Phosphatase 113 U/L (34-104) H 08/18/22 15:56 Total Protein 7.0 gm/dl (6.0-8.3) 08/18/22 15:56 Albumin 2.9 gm/dl (3.4-5.0) L 08/18/22 15:56 Globulin 4.1 gm/dl (2.5-4.0) H 08/18/22 15:56 Albumin/Globulin Ratio 0.7 (0.9-2) L 08/18/22 15:56 Lipase 29 U/L (11-82) 08/18/22 15:56 Procalcitonin 1.00 ng/ml (0-0.5) H 08/18/22 21:39 Urine Color Davidson 08/18/22 18:40 Urine Appearance Cloudy (Clear) A 08/18/22 18:40 Urine pH 6.5 (4.5-7.5) 08/18/22 18:40 Ur Specific Cascade 1.008 (1.000-1.030) 08/18/22 18:40 Urine Protein 3+ (Negative) H 08/18/22 18:40 Urine Glucose (UA) Negative (Negative) 08/18/22 18:40 Urine Ketones Negative (Negative) 08/18/22 18:40 Urine Blood 3+ (Negative) H 08/18/22 18:40 Urine Nitrite Negative (Negative) 08/18/22 18:40 Urine Bilirubin Negative (Negative) 08/18/22 18:40 Urine Urobilinogen Negative (Negative) 08/18/22 18:40 Ur Leukocyte Esterase 3+ (Negative) H 08/18/22 18:40 Urine WBC (Auto) >30 /hpf (0-5) H 08/18/22 18:40 Urine RBC (Auto) >30 /hpf (0-4) H 08/18/22 18:40 U Hyaline Cast (Auto) 5-10 /lpf (0-5) H 08/18/22 18:40 U Epithel Cells (Auto) >30 /lpf (0-5) H 08/18/22 18:40 Urine Bacteria (Auto) Negative (Negative) 08/18/22 18:40 Ur Renal Epithelial Cell Not Reportable 08/18/22 18:40 Urine Yeast Budding w/ Hyphae (None Prsent) A 08/18/22 18:40 SARS-CoV-2, RNA, NAAT NEGATIVE (NEGATIVE) 08/18/22 21:10 Blood Type A Negative 08/19/22 04:13 Antibody Screen NEGATIVE 08/19/22 04:13 Crossmatch See Detail 08/19/22 04:13 Impressions Chest X-Ray 08/18/22 21:32 XR chest 1V portable HISTORY: 71 years-old Male hyponatremia COMPARISON: 07/27/2022 TECHNIQUE: AP view of the chest FINDINGS: Cardiac silhouette is enlarged. No pneumothorax, pleural effusion or overt pulmonary edema. Degenerative changes of the shoulders and spine. IMPRESSION: No acute process. ACT 112: Negative or not required by law. The above report was generated using voice recognition software. It may contain grammatical, syntax or spelling errors. Electronically signed by: Jae Zabala M.D. 08/19/2022 8:00 AM Abdomen/Pelvis CT 08/19/22 21:23 Exam(s): CT ABDOMEN + PELVIS Without Contrast EXAM: CT Abdomen and Pelvis Without Intravenous Contrast CLINICAL HISTORY: Reason for exam: worseing R flank pain, hematuria. TECHNIQUE: Axial computed tomography images of the abdomen and pelvis without intravenous contrast. CTDI is 21.88 mGy and DLP is 1008.14 mGy-cm. Automated exposure control was utilized for the study. A dose lowering technique was utilized adhering to the principles of ALARA. COMPARISON: CT abdomen and pelvis 08/18/22 FINDINGS: There is a stable small pericardial effusion. Low-attenuation of the cardiac blood pool is compatible with anemia. Lung bases are clear. There is cholelithiasis without cholecystitis or biliary dilatation. There is stable hepatomegaly. There is a stable left hepatic lobe cyst. There is stable splenomegaly. Pancreas and adrenal glands are unremarkable. There is mild-moderate bilateral hydroureteronephrosis without radiopaque stone. A right percutaneous nephrostomy tube remains in place. Perinephric stranding is stable. Prostate is enlarged and heterogeneous with evidence of prior TURP and in situ brachytherapy seeds, as on prior exam. There is a regular mucosal thickening at the base of the bladder. A Nash catheter has been placed. Enlarged bilateral pelvic sidewall lymph nodes are stable. Appendix is normal. There is no bowel obstruction or inflammation. There is diverticulosis without diverticulitis. There is atherosclerosis without aortic aneurysm. There is no free air. There is trace free pelvic fluid. Bones are osteopenic. There are no acute osseous findings or suspicious osseous lesions. Anasarca is noted. IMPRESSION: 1. Interval placement of Nash urinary catheter. Otherwise, no substantial change from prior exam. 2. Mild-moderate bilateral hydroureteronephrosis. Right nephrostomy tube in place. Perinephric stranding is stable. Correlate with urinalysis. 3. Masslike wall thickening at the bladder base concerning for malignancy. Stable enlarged pelvic lymph nodes. 4. Brachytherapy seeds in the prostate. Suggestion of previous TURP. 5. Anemia. Electronically signed by: Nancy Beckford M.D. 08/20/22 01:10 AM Ordered Studies 08/18/22 15:55 CT abd pelvis wo con Stat 08/19/22 21:23 CT abd pelvis wo con Urgent Hospital Course (1) Sepsis: Sepsis--Ruled Out H/O Recurrent complicated UTI Chronic Obstructive uropathy/moderate bilateral hydroureteronephrosis H/O Metastatic Bladder cancer, right hydronephrosis S/P status post percutaneous nephroureteral tube placement Hematuria secondary to above --CT ABD:A right-sided percutaneous nephrostomy tube and right ureteral stent are in place. There is moderate bilateral hydroureteronephrosis. This has increased as compared to 07/31/2022. There is nonspecific urothelial thickening in the right ureter with associated perinephric and periureteric stranding. This could be related to the presence of indwelling catheters. Correlate with clinical findings and urinalysis for evidence of superimposed infection. 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 Soft tissue thickening and fluid extends inferiorly from the bladder into the anterior pelvis and inferiorly into the prostate and perineum. This likely represents a combination of tumor and urine, and there is associated erosive change within the pubic symphysis bilaterally. Correlate clinically for evidence of superimposed infection These findings are similar to previous. Correlate clinically. Mild enlarged pelvic lymph nodes are unchanged and likely represent metastatic disease. There are also mildly enlarged retroperitoneal lymph nodes. Hepatosplenomegaly. Cholelithiasis. Cardiomegaly with pericardial effusion. The rectal wall is circumferentially thickened with surrounding inflammation. This could be treatment related. Correlate clinically for evidence of a nonspecific proctitis. -Blood Cx:No growth to date -Urine Cx: Hilda albicans Normal lactate levels Continue Zosyn, fluconazole: Discontinued as advised by ID Appreciate urology input If obstruction worsens, will need nephroureteral catheter exchange by IR at tertiary care facility Appreciate ID Input Hematuria improving Hb stable Has follow-up with Urology, Dr. Calvo tomorrow as outpatient Acute on chronic anemia Acute blood loss anemia Hematuria secondary to metastatic disease/UTI Hemoglobin 7.1>7.8>8.4 S/P 1 unit PRBC Monitor H&H and transfuse as needed Chronic hyponatremia Sodium at baseline Monitor sodium level Sodium 135 today GUSTAVO on CKD III Baseline Cr 2.7 Likely Ischemic ATN Monitor renal function Avoid nephrotoxic agents as able Appreciate Nephrology Input Advised to follow-up with nephrology in 2 weeks as outpatient Hypertension Blood pressure stable Plan to decrease to amlodipine 2.5mg daily upon discharge Monitor Metastatic bladder cancer S/P bladder tumor fulguration, immunotherapy with Keytruda Prostate cancer S/P radiation Follows with [facility] oncology as outpatient DM II Last HbA1c 7.6 as per records Hold oral medications Continue insulin per protocol Monitor BgS Constipation Continue bowel regimen DVT Px: SCDs Re: Hematuria, anemia Code Status Full code Disposition Home Total Time Total Time Spent Total Time Spent (In Minutes): 65 minutes Discharge Plan Discharge Items Patient Disposition: Home - Self-Care Reason For Visit: SEPSIS Discharge Diagnosis: Acute blood loss anemia Hematuria Chronic Obstructive uropathy Constipation GUSTAVO on CKD III Metastatic bladder cancer Condition on Discharge: Fair Activity: Per Instructions section Exercise/Sports: Wait until after follow-up appointment Non-emergency contact: Primary Care Provider, Cargo Worker, Oncologist and Urologist Call non-emergency contact if: you have any medication questions, your symptoms worsen, your pain is concerning for you and you have a fever Follow-up/Referrals: Ernie Calvo MD [Outside Practitioners] - (Date & Time 08/22/2022 2:15 PM Provider Ernie Calvo MD Department Urology [facility] [place] ) Carlitos Chaparro MD [Primary Care Provider] - (Date & Time 08/29/2022 11:00 AM Provider Carlitos Chaparro MD Department General Internal Medicine [facility] ) Diet: Carb Consistent or DM2 and Heart Healthy Addtl Attending Provider Instructions: Follow-up with your primary physician Dr. Chaparro on 08/29/2022 11:00 AM Follow-up with your urologist Dr. Calvo scheduled for tomorrow Follow-up with your oncologist Dr. Weiss as advised Follow-up with your asset recovery specialist in 2 weeks -- Obtain blood test (BMP, CBC, Uric Acid) as recommended by your asset recovery specialist and follow-up with your primary care physician in 1 week. Seek immediate medical attention if your symptoms reoccur or worsen Please take all medications as instructed on discharge list below. Please call if you have any questions or problems. You can reach a [facility] hospitalist on duty at [facility] 24 hours a day by calling [phone] Pending Studies at Discharge: Yes Studies:: Blood Cultures Stand-Alone Forms: My [facility], Smoking Cessation Medications and DC Order Prescriptions: New polyethylene glycol 3350 [Miralax] 17 gram Powder In Packet 17 g PO DAILY PRN (Reason: constipation) Qty: 30 1RF sennosides-docusate sodium [Senokot-S] 8.6-50 mg Tablet 1 tab PO BID PRN (Reason: Constipation) Qty: 60 1RF Continued allopurinol 100 mg tablet 100 mg PO QAM omeprazole 20 mg capsule,delayed release(DR/EC) 20 mg PO DAILYBB vitamin B complex Capsule 1 cap PO DAILY cinnamon bark [Cinnamon] 500 mg Capsule 2,000 mg PO DAILY acetaminophen [Tylenol Extra Strength] 500 mg Tablet 1,000 mg PO TID PRN (Reason: Pain) thiamine HCl (vitamin B1) 50 mg Tablet 50 mg PO DAILY sodium chloride 0.9 % (flush) Syringe 10 ml intra-catheter BID Tradjenta 5 mg Tablet 5 mg PO DAILY Probiotic 3 billion cell capsule 3,000 mmu cells PO DAILY 7 Days Qty: 7 0RF Rx Instructions: administer with a meal Changed amlodipine 5 mg Tablet 2.5 mg PO DAILY Qty: 30 0RF Discontinued ciprofloxacin HCl [Cipro] 500 mg Tablet 500 mg PO TID Discharge Orders: Discharge Order (Routine); Ordered 08/21/22 Ordered By: Rodger White Admission Data Admit Date/Time: 08/18/22 22:27 Attending Provider: Rodger White Admit Provider: Jamaal Lucas Primary Care Provider: Carlitos Chaparro Other Providers: Jamaal Lucas ; Jaiden Gregory ; Dipesh Baron ; Lina Del Angel ; Avila Ayala I. ; Fercho Patel II ; Laurel Kearns ; Anand Paz ; Matt Ashby ; Isra Gresham ; Rani Xiong ; Marquise Teran ; Susu Guevara ; Reggie Orr ; Regulo Olvera ; Laurel Boudreaux
== END 2022-08-21 17:29 | disposition home or self-care (01) | DRG 694 ==
LOC: ED 15:01 → SUATTDRO 22:27 → 2E 22:27

== ENCOUNTER 2022-08-24 16:00 | Inpatient (IN) ==
--- NOTE | 2022-08-24 16:06 | ED Triage Note ---
Date of Service August 24, 2022 History of Present Illness This patient was briefly evaluated while in triage. An abbreviated physical exam was performed. This patient is a 71-year-old Male who presents to the ED for evaluation of clogged urinary catheter. He was just here and discharged 3 days ago. He has ne phrostomy tube that do not seem to be functioning according to the patient. He rates his pain a 5/10. He had urology follow up 2 days ago, and plan is to place bilateral nephrostomy tubes. Physical Exam Limited Triage Exam: VITALS: Vitals are noted on the nurse's note and reviewed by myself. Vital signs stable. GENERAL: Well-developed, well-nourished, white male, who is mildly uncomfortable but not toxic appearing. HEART: Regular rate and rhythm without murmurs gallops or rubs. LUNGS: Clear to auscultation bilaterally without wheezes, rales or rhonchi. No retractions or accessory muscle use. NEURO: Patient was alert and oriented to person place and time. CN II through XII grossly intact. Initial orders for labs and / or imaging were placed and patient was placed in the waiting area until a bed is available. Please see further documentation for the full ED course.
--- NOTE | 2022-08-24 17:58 | Emergency Department Note ---
Impression & Plan Leukocytosis, Anemia, CKD (chronic kidney disease), Acute urinary retention ED Provider Note NAME: CONNIE MENESES AGE: 71 SEX: M : 1950 ARRIVES VIA: Walk-In INFORMANT: Patient ED PROVIDER(S): Rock Marques DO CHIEF COMPLAINT: Clogged nephrostomy tube and Nash catheter HPI: Patient is a 71-year-old male with a PMH of hypertension, bladder cancer on Keytruda, right hydronephrosis status post percutaneous nephroureteral tube placement, prostate cancer status post radiation, DM 2 on oral medications, CRI (baseline creatinine 2,2), chronic hyponatremia, chronic anemia (baseline hemoglobin of 8), past alcohol abuse who presents to the ER who was recently admitted for UTI with new Nash that was placed. He notes that this morning he woke up and he has not had any urine output since then. He went to have a bowel movement and started having blood leaking around the Nash catheter. He denies any headache or change in vision. No chest pain or shortness of breath. No fevers. PAST MEDICAL HISTORY:See Below PAST SURGICAL HISTORY:See Below FAMILY HISTORY:See Below SOCIAL HISTORY:See Below HOME MEDICATIONS:See Below ALLERGIES:See Below VITALS:See Below PHYSICAL EXAMINATION: GENERAL: Sitting up in bed, alert, moderate distress, holding his abdomen EYE EXAM: normal conjunctiva. OROPHARYNX: no exudate, no erythema, lips, buccal mucosa, and tongue normal and mucous membranes are moist NECK: supple, no nuchal rigidity, no adenopathy, non-tender LUNGS: Clear to auscultation. Normal chest wall mechanics HEART: no murmurs, S1 normal and S2 normal ABDOMEN: abdomen soft, non-tender, normo-active bowel sounds, no masses, no rebound or guarding. : External genitalia covered in blood with a Nash present with no urine in bag UPPER EXTREMITIES: upper extremities are grossly normal. LOWER EXTREMITIES: No pitting edema. NEURO EXAM: Normal sensorium, cranial nerves II-XII grossly intact, normal speech, no gross weakness of arms, no gross weakness of legs. MEDICAL DECISION MAKING: Patient is a 71-year-old male who presents ER for the above-stated complaint. IV was established blood work was obtained. Labs show leukocytosis of 25,000 which is increased. Mild anemia at 8. BMP with a creatinine of 2.4 up from baseline 2.3. Glucose at 230. LFTs bilirubin was unremarkable. Lipase normal. UA does show white cells without epithelials. Unable to interpret leukocytes with the hematuria. Initially flushed the catheter after discussion with Mikey Presley from urology. This was unsuccessful. Exchanged catheter and we did get blood out. I discussed the case initially with the [facility] Dr. Fields. After several conversations he was eventually agreeable to transferring to [facility] as IR was on tomorrow. I discussed with Dr. Calvo from urology and he was agreeable as well. Recontacted Dr. Roberto after contacting Dr. Calvo and at this time he was able to contact IR and they will not be able to accommodate this case tomorrow. With this he recommended not transferring to [facility] and [facility] would be able to perform this but there is currently no beds and consequently patient can be transferred. Updated the patient at bedside. With the marked increasing leukocytosis discussed with hospitalist for admission. Unable to see the infectious disease notes from the previous admission which recommended holding antibiotics. As the leukocytosis is worsening and I am unable to visualize the previous notes did give the patient IV Rocephin. He was updated at bedside. Triage Nursing notes reviewed. Limited review of prior medical records performed Vital Signs: reviewed and remarkable for tachycardia Differential diagnosis: Differential diagnosis includes etiologies such as sepsis, UTI, pneumonia, metabolic, electrolyte abnormalities, cardiac sources, intracerebral event, toxicologic, neurological, as well as others were entertained. ER treatment provided: See below Diagnostics interpreted by me include EKG and cardiac monitoring as listed below: -Cardiac Monitoring: An order was placed for continuous cardiac monitoring. The monitor shows a rate of 98 with sinus rhythm. -ECG: none -Laboratory studies:Interpreted by me as stated above in MDM and shown below. Imaging studies: Xrays: As interpreted by me:none CTs show: none Consultation(s): Discussed with our urology assist in combination with [facility], case series urologist and our hospitalist Dr. 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 Melanoma Protein calorie malnutrition Surgical History H/O cystoscopy 12/2021 with fulguration of bladder tumor 11/2021 witth fulguration of bladder tumor H/O umbilical hernia repair History of mandibular surgery 1975 S/P urological surgery IR drainage catheter change right, 12/ place percutaneous nephrostomy tube- [facility] Family History Brother Cancer Social History Smoking Status: Current every day smoker Tobacco Type: Smokeless Tobacco (Dip or Chew) Hx Alcohol Use: No Hx Substance Use: No Preferred Language: Cymraes Communication Ability: Effective Sports Intern Required: No Beliefs That Will Affect Care: None Current Living Situation: Alone Feels Safe at Home: Yes Assistive Devices: None Allergies Allergies Allergy/AdvReac Type Severity Reaction Status Date / Time No Known Allergies Allergy Verified 08/18/22 22:07 Home Meds Home Medications Medication Instructions Recorded Confirmed allopurinol 100 mg tablet 100 mg PO QAM 01/02/22 08/24/22 cinnamon bark 500 mg capsule 2,000 mg PO DAILY 01/02/22 08/24/22 (Cinnamon) omeprazole 20 mg capsule,delayed 20 mg PO DAILYBB 01/02/22 08/24/22 release vitamin B complex 1 cap PO DAILY 01/02/22 08/24/22 acetaminophen 500 mg tablet 1,000 mg PO TID PRN Pain 07/27/22 08/24/22 (Tylenol Extra Strength) linagliptin 5 mg tablet (Tradjenta) 5 mg PO DAILY 07/27/22 08/24/22 sodium chloride 0.9 % (flush) 10 ml intra-catheter BID 07/27/22 08/24/22 thiamine HCl (vitamin B1) 50 mg 50 mg PO DAILY 07/27/22 08/24/22 tablet Previous Rx's Medication Instructions Recorded amlodipine 5 mg tablet 2.5 mg PO DAILY #30 tabs 08/21/22 polyethylene glycol 3350 17 gram 17 g PO DAILY PRN constipation #30 08/21/22 oral powder packet (Miralax) ea sennosides 8.6 mg-docusate sodium 1 tab PO BID PRN Constipation #60 08/21/22 50 mg tablet (Senokot-S) tabs Results & Data (ED) Vital Signs Vital Signs - 24 hr 08/24/22 16:03 08/24/22 18:48 08/24/22 18:51 Temperature 36 C L Temperature Source Temporal Artery Scan Pulse Rate 108 H 85 Pulse Rate [Apical] 85 Pulse Rhythm Regular Pulse Rhythm [Apical] Regular Pulse Strength [Apical] Normal Respiratory Rate 18 13 20 Respiratory Effort / Characteristics Non-Labored Non-Labored Spontaneous Respiratory Depth Normal Normal Respiratory Pattern Regular Blood Pressure 154/84 H Blood Pressure [Right Arm] 143/73 H Blood Pressure Mean 107 Blood Pressure Mean [Right Arm] 96 Blood Pressure Position [Right Arm] Pulse Oximetry 100 98 100 Oxygen Delivery Method Room Air Room Air Room Air Sepsis Recent Fever Within 48 Hours No Sepsis New/Unexplained Change in Mental Status No Sepsis Action Taken by Nursing No Action Required 08/24/22 18:48 08/24/22 22:52 Temperature Temperature Source Pulse Rate 86 Pulse Rate [Apical] 93 H Pulse Rhythm Pulse Rhythm [Apical] Regular Pulse Strength [Apical] Normal Respiratory Rate 15 Respiratory Effort / Characteristics Non-Labored Spontaneous Respiratory Depth Normal Respiratory Pattern Regular Blood Pressure Blood Pressure [Right Arm] 145/84 H Blood Pressure Mean Blood Pressure Mean [Right Arm] 104 Blood Pressure Position [Right Arm] Semi-fowlers Pulse Oximetry 98 Oxygen Delivery Method Room Air Sepsis Recent Fever Within 48 Hours Sepsis New/Unexplained Change in Mental Status Sepsis Action Taken by Nursing Laboratory Data 08/24/22 18:39 08/24/22 18:39 Lab Results 08/24/22 08/24/22 08/24/22 Range/Units 18:34 18:39 18:39 WBC 25.07 H (4.8-10.8) K/ul RBC 3.20 L (4.70-6.10) M/uL Hgb 7.9 L (14.0-18.0) g/dl Hct 25.2 L (42.0-52.0) % MCV 78.8 L (80.0-100.0) fL MCH 24.7 L (25.0-34.0) pg MCHC 31.3 L (32.0-36.0) g/dL RDW Std Deviation 57.7 H (36.4-46.3) fL RDW Coeff of Krystal 20.5 H (11.5-14.5) % Plt Count 346 (130-400) K/uL MPV 8.5 L (9.4-12.4) fL Immature Gran % (Auto) 0.9 % Neut % (Auto) 86.2 % Lymph % (Auto) 8.2 % Mcduffie % (Auto) 3.5 % Eos % (Auto) 0.6 % Baso % (Auto) 0.6 % Neut # (Auto) 21.62 H (1.40-6.50) K/uL Lymph # (Auto) 2.06 (1.2-3.4) K/uL Mcduffie # (Auto) 0.87 H (0.11-0.59) K/uL Eos # (Auto) 0.14 (0-0.50) K/uL Baso # (Auto) 0.16 (0-0.2) K/uL Immature Gran # (Auto) 0.22 H (0.01-0.20) K/uL Polychromasia 1+ Anisocytosis Present Sodium 130 L (136-145) mmol/L Potassium 4.1 (3.5-5.1) mmol/L Chloride 102 (98-107) mmol/L Carbon Dioxide 19 L (21-32) mmol/L Anion Gap 9 (3-11) BUN 56 H (6-23) mg/dl Creatinine 2.44 H (0.6-1.4) mg/dl Est Cr Clr Drug Dosing 26.5 ml/min Est GFR ( Amer) 29.3 ml/min Est GFR (Non-Af Amer) 25.3 ml/min BUN/Creatinine Ratio 23.0 H (10-20) Glucose 230 H (70-99(Fasting)) mg/dl Calcium 9.3 (8.6-10.3) mg/dl Total Bilirubin 0.6 (0.2-1.0) mg/dl AST 14 (13-39) U/L ALT 12 (7-52) U/L Alkaline Phosphatase 89 (34-104) U/L Total Protein 6.5 (6.0-8.3) gm/dl Albumin 2.8 L (3.4-5.0) gm/dl Globulin 3.7 (2.5-4.0) gm/dl Albumin/Globulin Ratio 0.8 L (0.9-2) Lipase 17 (11-82) U/L Urine Color Urine Appearance (Clear) Urine pH (4.5-7.5) Ur Specific Bittinger (1.000-1.030) Urine Protein (Negative) Urine Glucose (UA) (Negative) Urine Ketones (Negative) Urine Blood (Negative) Urine Nitrite (Negative) Urine Bilirubin (Negative) Urine Urobilinogen (Negative) Ur Leukocyte Esterase (Negative) Urine RBC (0-4) /hpf Urine WBC (0-5) /hpf Ur Epithelial Cells (0-5) /lpf Urine Bacteria (Negative) Hyaline Casts (0-5) /lpf SARS-CoV-2, RNA, NAAT NEGATIVE (NEGATIVE) 08/24/22 Range/Units 21:13 WBC (4.8-10.8) K/ul RBC (4.70-6.10) M/uL Hgb (14.0-18.0) g/dl Hct (42.0-52.0) % MCV (80.0-100.0) fL MCH (25.0-34.0) pg MCHC (32.0-36.0) g/dL RDW Std Deviation (36.4-46.3) fL RDW Coeff of Krystal (11.5-14.5) % Plt Count (130-400) K/uL MPV (9.4-12.4) fL Immature Gran % (Auto) % Neut % (Auto) % Lymph % (Auto) % Mcduffie % (Auto) % Eos % (Auto) % Baso % (Auto) % Neut # (Auto) (1.40-6.50) K/uL Lymph # (Auto) (1.2-3.4) K/uL Mcduffie # (Auto) (0.11-0.59) K/uL Eos # (Auto) (0-0.50) K/uL Baso # (Auto) (0-0.2) K/uL Immature Gran # (Auto) (0.01-0.20) K/uL Polychromasia Anisocytosis Sodium (136-145) mmol/L Potassium (3.5-5.1) mmol/L Chloride (98-107) mmol/L Carbon Dioxide (21-32) mmol/L Anion Gap (3-11) BUN (6-23) mg/dl Creatinine (0.6-1.4) mg/dl Est Cr Clr Drug Dosing ml/min Est GFR ( Amer) ml/min Est GFR (Non-Af Amer) ml/min BUN/Creatinine Ratio (10-20) Glucose (70-99(Fasting)) mg/dl Calcium (8.6-10.3) mg/dl Total Bilirubin (0.2-1.0) mg/dl AST (13-39) U/L ALT (7-52) U/L Alkaline Phosphatase (34-104) U/L Total Protein (6.0-8.3) gm/dl Albumin (3.4-5.0) gm/dl Globulin (2.5-4.0) gm/dl Albumin/Globulin Ratio (0.9-2) Lipase (11-82) U/L Urine Color Red Urine Appearance Turbid A (Clear) Urine pH (4.5-7.5) Ur Specific Bittinger 1.015 (1.000-1.030) Urine Protein (Negative) Urine Glucose (UA) (Negative) Urine Ketones (Negative) Urine Blood (Negative) Urine Nitrite (Negative) Urine Bilirubin (Negative) Urine Urobilinogen (Negative) Ur Leukocyte Esterase (Negative) Urine RBC >30 H (0-4) /hpf Urine WBC 10-30 H (0-5) /hpf Ur Epithelial Cells 0-5 (0-5) /lpf Urine Bacteria Negative (Negative) Hyaline Casts 0-5 (0-5) /lpf SARS-CoV-2, RNA, NAAT (NEGATIVE) Administered Medications Discontinued Medications Ceftriaxone Sodium (Rocephin) 2,000 mg in 70 mls @ 140 mls/hr IV NOW STA Stop: 08/24/22 21:26 Last Infusion: 08/24/22 21:07 Dose: 0 mls/hr Documented By: Admin: 08/24/22 21:07 Dose: 140 mls/hr Documented By: Discharge Plan Visit Data Chief Complaint: Catheter Replacement Stated Complaint: CATHETER ISSUES/CLOGGED ED Provider: Rock Marques Discharge Problem: Leukocytosis, Anemia, CKD (chronic kidney disease), Acute urinary retention Forms Stand Alone Forms: My [facility] Prescriptions Prescriptions: No Action allopurinol 100 mg tablet 100 mg PO QAM omeprazole 20 mg capsule,delayed release(DR/EC) 20 mg PO DAILYBB vitamin B complex Capsule 1 cap PO DAILY cinnamon bark [Cinnamon] 500 mg Capsule 2,000 mg PO DAILY acetaminophen [Tylenol Extra Strength] 500 mg Tablet 1,000 mg PO TID PRN (Reason: Pain) thiamine HCl (vitamin B1) 50 mg Tablet 50 mg PO DAILY sodium chloride 0.9 % (flush) Syringe 10 ml intra-catheter BID Tradjenta 5 mg Tablet 5 mg PO DAILY polyethylene glycol 3350 [Miralax] 17 gram Powder In Packet 17 g PO DAILY PRN (Reason: constipation) Qty: 30 1RF sennosides-docusate sodium [Senokot-S] 8.6-50 mg Tablet 1 tab PO BID PRN (Reason: Constipation) Qty: 60 1RF amlodipine 5 mg Tablet 2.5 mg PO DAILY Qty: 30 0RF Referrals Referrals: Carlitos Chaparro MD [Primary Care Provider] -
[2022-08-24 19:14] LABS: Albumin Globulin Ratio 0.8 (0.9-2); Albumin Level 2.8 gm/dl (3.4-5.0); Bilirubin,Total 0.6 mg/dl (0.2-1.0); Calcium 9.3 mg/dl (8.6-10.3); Creatinine Clr Calc Pharmacy 26.5 ml/min; Est GFR (African American) 29.3 ml/min; Est GFR (Non-African American) 25.3 ml/min; Globulin 3.7 gm/dl (2.5-4.0); Potassium 4.1 mmol/L (3.5-5.1); Total Protein 6.5 gm/dl (6.0-8.3)
[2022-08-24 19:26] LABS: Hematocrit (blood only) 25.2 % (42.0-52.0); Hemoglobin 7.9 g/dl (14.0-18.0); Mean Corpuscular Hemoglobin 24.7 pg (25.0-34.0); Mean Corpuscular Hgb Conc 31.3 g/dL (32.0-36.0); Mean Corpuscular Volume 78.8 fL (80.0-100.0); Mean Platelet Volume 8.5 fL (9.4-12.4); Platelet Count 346 K/uL (130-400); RDW Coefficient of Variation 20.5 % (11.5-14.5); RDW Standard Deviation 57.7 fL (36.4-46.3); White Blood Count 25.07 K/ul (4.8-10.8)
[2022-08-24 19:50] LABS: Anisocytosis Present; Basophils # (auto) 0.16 K/uL (0-0.2); Basophils % (auto) 0.6 %; Eosinophils # (auto) 0.14 K/uL (0-0.50); Eosinophils % (auto) 0.6 %; Immature Granulocytes # (auto) 0.22 K/uL (0.01-0.20); Immature Granulocytes % (auto) 0.9 %; Lymphocytes # (auto) 2.06 K/uL (1.2-3.4); Lymphocytes % (auto) 8.2 %; Monocytes # (auto) 0.87 K/uL (0.11-0.59); Monocytes % (auto) 3.5 %; Neutrophils # (auto) 21.62 K/uL (1.40-6.50); Neutrophils % (auto) 86.2 %; Polychromasia 1+
[2022-08-24] MEDS ORDERED: cefTRIAXone SODIUM 2,000 MG/70 ML BAG IV STA (20:57)
[2022-08-24 21:40] LABS: Appearance Urine Turbid (Clear); Color Urine Red; Specific Gravity Urine 1.015 (1.000-1.030)
[2022-08-24 21:43] LABS: Bacteria Urine Negative (Negative); Epithelial Cell Urine 0-5 /lpf (0-5); Hyaline Casts Urine 0-5 /lpf (0-5); RBC Urine >30 /hpf (0-4)
--- NOTE | 2022-08-25 01:10 | History and Physical Report ---
DATE OF ADMISSION: 08/24/2022. CHIEF COMPLAINT: Hematuria and Nash catheter dysfunction. HISTORY OF PRESENT ILLNESS: This is a 71-year-old male with past medical history significant for hypertension, bladder cancer, currently on Keytruda every 6 weeks, next dose is on 09/12/2022, right hydronephrosis, status post percutaneous nephroureteral tube placement, prostate cancer, status post radiation, diabetes, on oral medication, GUSTAVO, baseline creatinine around 2.7 currently, history of chronic anemia, baseline hemoglobin around 8, recurrent admissions for complicated UTI and GUSTAVO, was recently in the hospital as he was having right flank pain and leakage from nephrostomy tube collection site and then it was decreased input in the nephrostomy bag and worsening hydronephrosis noted on CT scan. At that time in the ER, as per urology recommendation, Nash was inserted with 1.4 L of bloody urine drainage. At that time, plans were to transfer to tertiary care for nephrostomy tube exchange, but there was no bed at [facility] and decided to keep the patient in [facility] and with Nash catheter had good urine drainage and was planned to follow as outpatient if stable. The patient did okay. It looks like he was also on antibiotics Zosyn and was on fluconazole for Hilda in urine cultures. Blood culture showed no growth and antibiotics discontinued per ID recommendations. Hematuria was improving and hemoglobin is stable. He received 1 unit of PRBC last admission and he was discharged on 08/21/2022 .And the patient followed urology after discharge on 08/22/2022 and recommendation was and to discontinue Nash catheter once the bilateral nephrostomy tubes are placed. But today, the patient noticed some blood in the catheter bag and also was not able to drain any urine in the Nash catheter, so came to the ER. In the ER, Nash catheter was changed but still not much coming out and there is some mild pressure in his bladder, but not as bad as last admission. ER called [facility], but still [facility] has no bed And [facility] seems no IR tomorrow and as per the ER, there is no bed in [place], so we are admitting the patient overnight and consult urology and watch him here. He has leukocytosis of 25,000, but it was mostly same at the time of discharge. Hemoglobin 7.9, it was 8.4 at the time of discharge, sodium is 130. Also, has chronic hyponatremia. Creatinine is 2.4,at baseline. Currently, resting comfortably and hemodynamically stable. No other complaints. Denies any headache, no dizziness, no blurred visions, no earache, no runny nose, no sore throat, no cough, no chest pain, no shortness of breath. Appetite is down. He did not eat too much today. No nausea. There is some abdominal pressure. No significant pain. Normal bowel movements. He was constipated before, but now he has loose stools. Able to ambulate okay as per the patient. ALLERGIES: No known drug allergies. PAST MEDICAL HISTORY: As mentioned above. PAST SURGICAL HISTORY: Biopsy of prostate, colonoscopy, cystoscopy, repair of broken jaw, right thumb repair, interstitial radiation application, IR drainage, right nephrostomy placement, umbilical hernia repair. MEDICATIONS: The patient is on Tylenol 1000 mg p.o. t.i.d. p.r.n., allopurinol 100 mg p.o. a.m., amlodipine 2.5 mg p.o. daily, cinnamon 2000 mg p.o. daily, omeprazole 20 mg p.o. daily, MiraLax 17 gm p.o. daily p.r.n., Senokot-S 1 tablet p.o. b.i.d. p.r.n., sodium chloride flushes b.i.d. 10 mL, thiamine 50 mg p.o. daily, Tradjenta 5 mg p.o. daily, vitamin B complex 1 capsule p.o. daily. FAMILY HISTORY: Significant for brother had radical prostatectomy at the age of 70. SOCIAL HISTORY: . Quit smokeless tobacco in June 2015. History of tobacco, not currently. No alcohol since 11/2021. No drug use. REVIEW OF SYSTEMS: As per HPI. Rest of the review of systems is negative. PHYSICAL EXAMINATION: GENERAL: The patient is of moderate build, not in acute distress. VITAL SIGNS: Temperature 36, pulse 85, respiratory rate 20, blood pressure 143/73, oxygen 100% on room air. HEENT: Pupils equal, round and reactive to light. Oral mucosa moist. NECK: No JVD, no neck masses. CARDIOVASCULAR: S1 and S2 heard. Regular rate and rhythm. No murmur, no gallop. RESPIRATORY SYSTEM: Normal AP diameter. No accessory muscle use. No wheezing or crackles. ABDOMEN: Soft, bowel sounds present, nontender, no distention. Nephrostomy tube site seen on the right flank. No erythema or drainage seen around the nephrostomy tube. Nash catheter. Mild increased drainage seen. CENTRAL NERVOUS SYSTEM: Cranial nerves II through XII grossly intact, nonfocal. EXTREMITIES: No edema, no erythema. LABORATORY DATA: WBC 25, hemoglobin 7.9, hematocrit 25.2, platelets 346. Sodium 130, potassium 4.1, chloride 102, bicarbonate 19, BUN 56, creatinine 2.4, serum glucose 230, calcium 9.3, total bilirubin 0.6, AST 14, ALT 12, alkaline phosphatase 89. Urinalysis greater than rbc's, urine wbc's 10-30. SARS-CoV-2 rapid test negative. ASSESSMENT AND PLAN: This 71-year-old male was recently in the hospital as his nephrostomy was not working and was placed on Nash catheter, which drained fine and discharged home to follow as outpatient. Saw the urology on 08/22/2022 at [facility]. Plan for bilateral nephrostomy tubes . Comes today as the Nash catheter is not working and also hematuria. 1. Catheter malfunction. Er changed the catheter, but still he has some pinkish drainage, but not much coming out. The patient states he has some mild discomfort, but pain is not bad as last time. There are no beds available in [facility] . Seems [facility] no IR tomorrow. We will admit the patient to the hospital. Watch overnight. Consult urology. Bladder irrigation. Empirically on Zosyn, which will be continued. We will keep n.p.o. for now. Normal saline 50 mL per hour as the patient is n.p.o. Bladder scan q. shift. 2. Leukocytosis. Seems to be same as last admission. We will follow the cultures. 3. Chronic anemia. Hemoglobin 7.9, Will follow serna nd h. Blood consent obtained. 4. hematuria. We will follow H and H q. 6 hours. Blood consent obtained. Last admission, 1 unit of PRBC. 5. Chronic hyponatremia. Sodium is 130. We will get gentle fluids. We will follow the repeat labs in the a.m. 6. Chronic kidney disease, stage III. Baseline creatinine 2.7, Seems at baseline. We will follow the repeat labs. 7. Hypertension. On last admission, amlodipine was decreased to 2.5 mg, which will be continued. Monitor the blood pressure. 8. History of metastatic bladder cancer, status post bladder tumor, fulguration. Currently on chemotherapy with Keytruda.Follow up with oncology. 9. Prostate cancer, status post radiation. 10. Diabetes. We will hold his home medication. Place him on insulin sliding scale. Follow the blood sugars. 11. Deep venous thrombosis prophylaxis. Sequential compression devices as the patient has hematuria and anemia. 12. Code status, Full code. Addendum: On floor with Nash irrigation some urine drained. Bladder scan not much residual as per Nursing staff. Await Urology inputs. DISPOSITION: Closely monitor in the [employer] tele. Job ID: [id number] [facility]
[2022-08-25] MEDS ORDERED: DOCUSATE SODIUM/SENNA 50/8.6MG TAB PO PRN (01:16)
[2022-08-25] MEDS ORDERED: GLUCOSE 10 TAB/TUBE PO PRN (01:16)
[2022-08-25] MEDS ORDERED: DEXTROSE 50% 50 ML SYRINGE IV PRN (01:16)
[2022-08-25] MEDS ORDERED: NITROGLYCERIN SL 0.4 MG/TAB TAB SL PRN (01:16)
[2022-08-25] MEDS ORDERED: GLUCOSE 40% GEL 15 GM TUBE PO PRN (01:16)
[2022-08-25] MEDS ORDERED: GLUCAGON FOR INJ 1 MG VIAL SQ PRN (01:16)
[2022-08-25] MEDS ORDERED: POLYETHYLENE (MIRALAX) 17 GM PACK PO PRN (01:16)
[2022-08-25] MEDS ORDERED: ACETAMINOPHEN 500 MG TAB PO PRN (01:16)
[2022-08-25] MEDS ORDERED: CARBOHYDRATES FOR HYPOGLYCEMIA PO PRN ×2 (01:16→12:49)
[2022-08-25] MEDS ORDERED: INSULIN ASPART PER UNIT CHARGE SC SCH (01:30)
[2022-08-25] MEDS ORDERED: SODIUM CHLORIDE 0.9% 1000ML 1,000 ML IV SCH (01:33)
[2022-08-25] MEDS: ACETAMINOPHEN 325 MG TAB PO PRN ×2 (02:15→11:21)
[2022-08-25 05:59] LABS: Appearance Urine Cloudy (Clear); Bacteria Urine Automated Negative (Negative); Blood Urine 3+ (Negative); Color Urine Red; Glucose Urine UA Negative (Negative); Ketones Urine Negative (Negative); Leukocyte Esterase Urine 2+ (Negative); Nitrite Urine Positive (Negative); Protein Urine 3+ (Negative); Urobilinogen Urine Negative (Negative); WBC Urine Automated >30 /hpf (0-5)
[2022-08-25 06:10] LABS: Bilirubin Urine 1+ (Negative)
[2022-08-25 06:21] LABS: Cast Urine Automated 0 /lpf (0-5); RBC Urine Automated >30 /hpf (0-4)
[2022-08-25] MEDS: INSULIN ASPART PER UNIT CHARGE SC SCH ×2 (06:29→12:46)
[2022-08-25] MEDS ORDERED: PANTOprazole 40 MG TAB PO SCH (06:30)
[2022-08-25] MEDS: PIPERACILLIN/TAZOBACTAM 4.5 GM in DEXTROSE 5% 100 ML IV SCH ×2 (06:30→13:22)
[2022-08-25 06:57] LABS: Hematocrit (blood only) 24.6 % (42.0-52.0); Hemoglobin 7.7 g/dl (14.0-18.0); Mean Corpuscular Hemoglobin 24.7 pg (25.0-34.0); Mean Corpuscular Hgb Conc 31.3 g/dL (32.0-36.0); Mean Corpuscular Volume 78.8 fL (80.0-100.0); Mean Platelet Volume 8.5 fL (9.4-12.4); Platelet Count 297 K/uL (130-400); RDW Coefficient of Variation 20.6 % (11.5-14.5); RDW Standard Deviation 58.1 fL (36.4-46.3); Red Blood Count 3.12 M/uL (4.70-6.10); White Blood Count 24.26 K/ul (4.8-10.8)
[2022-08-25 07:13] LABS: Anisocytosis Present; Basophils # (auto) 0.03 K/uL (0-0.2); Basophils % (auto) 0.1 %; Eosinophils % (auto) 1.2 %; Immature Granulocytes # (auto) 0.28 K/uL (0.01-0.20); Immature Granulocytes % (auto) 1.2 %; Lymphocytes # (auto) 1.36 K/uL (1.2-3.4); Lymphocytes % (auto) 5.6 %; Monocytes # (auto) 0.62 K/uL (0.11-0.59); Monocytes % (auto) 2.6 %; Neutrophils # (auto) 21.67 K/uL (1.40-6.50); Neutrophils % (auto) 89.3 %; Polychromasia 1+
[2022-08-25 07:15] LABS: Calcium 8.9 mg/dl (8.6-10.3); Creatinine Clr Calc Pharmacy 27.4 ml/min; Est GFR (African American) 29.9 ml/min; Est GFR (Non-African American) 25.8 ml/min; Magnesium 1.6 mg/dl (1.7-2.4); Potassium 3.5 mmol/L (3.5-5.1)
--- NOTE | 2022-08-25 07:16 | Urology Consultation ---
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 Patient was recently admitted at [facility] from 08/18 - 08/21/22 for UTI and urinary retention after presenting with right flank pain and decreased output from nephrostomy tube, Nash catheter was placed. Patient febrile and tachycardic early this am Labs showcreatinine 2.40, WBC 24.26, hemoglobin 7.7 Urine and blood cultures are pending He was treated with Rocephin in ED, now on IV Zosyn Continue broad-spectrum antibiotics and narrow per sensitivity data when available Patient has right nephroureteral stent which is currently nonfunctioning and requires exchange by IR, which is not available at this facility Nash with urine output into the collection bag this morning but also leaking around catheter Continue with Nash catheter for drainage - monitor output Okay to gently hand irrigate as needed for obstructed catheter, suprapubic discomfort Previous CT imaging from 08/19 reviewed and showed mild to moderate bilateral hydroureteronephrosis, right nephroureteral stent in position, masslike wall t hickening at the bladder base With fever and tachycardia, we recommend acute transfer to tertiary center with IR for nephroureteral drain exchange on right, and consideration of placement on the left Continue supportive care, antibiotics, and medical management per primary service will follow History of Present Illness Attending Physician: Santo Álvarez MD History of Present Illness This is a 71-year-old male with past medical history of hypertension, prostate cancer, type 2 diabetes, metastatic bladder cancer on Keytruda, right hydronephrosis status post percutaneous nephroureteral tube placement at [facility] who presented to the emergency department on 08/24/2022 with obstruction of Nash catheter. Patient was recently admitted at [facility] from 08/18 - 08/21/22 for UTI/sepsis and urinary retention managed with Nash catheter after presenting with right flank pain and decreased output from nephrostomy tube. On arrival to ED, he was afebrile, mildly tachycardic but otherwise hemodynamically stable. Lab work showed creatinine 2.44, sodium 130, WBC 25.07, hemoglobin 7.9. Urinalysis showed greater than 30 RBC, 10-30 WBC, negative for bacteria. In the ED, the catheter was initially flushed, but was unsuccessful. Nash catheter was exchanged with return of bloody output per reports. He was treated with IV Rocephin in the emergency department. Plan is to transfer to [place] or [place] for exchange of nephroureteral stent. However, no satya il[facility] beds currently. He has been admitted to the hospital medicine service. Urology is consulted for Nash malfunction. Chart review: Febrile at 0300 (Tmax 38.3) Labscreatinine 2.4, WBC 24.26, hemoglobin 7.7 Repeat UA 08/25 notable for 3+ protein, 3+ blood, positive nitrates, 2+ leukocyte esterase, greater than simple 30 WBC, >30 RBC, negative bacteria Urine culture pending Blood culture pending On IV Zosyn Patient seen and examined at bedside this morning. He denies abdominal, flank, or suprapubic pain currently. Nash patent and draining light pink urine at time of exam. Per nursing, Nash bag was recently emptied for 230 mL. He is also leaking urine around catheter. Catheter required manual irrigation once overnight per nursing. Denies nausea or vomiting. Denies fever or chills at present. Allergies Allergy/AdvReac Type Severity Reaction Status Date / Time No Known Allergies Allergy Verified 08/18/22 22:07 Home Medications Medication Instructions Recorded Confirmed Type allopurinol 100 mg tablet 100 mg PO QAM 01/02/22 08/24/22 History cinnamon bark 500 mg capsule 2,000 mg PO DAILY 01/02/22 08/24/22 History (Cinnamon) omeprazole 20 mg capsule,delayed 20 mg PO DAILYBB 01/02/22 08/24/22 History release vitamin B complex 1 cap PO DAILY 01/02/22 08/24/22 History acetaminophen 500 mg tablet 1,000 mg PO TID PRN Pain 07/27/22 08/24/22 History (Tylenol Extra Strength) linagliptin 5 mg tablet (Tradjenta) 5 mg PO DAILY 07/27/22 08/24/22 History sodium chloride 0.9 % (flush) 10 ml intra-catheter BID 07/27/22 08/24/22 History thiamine HCl (vitamin B1) 50 mg 50 mg PO DAILY 07/27/22 08/24/22 History tablet amlodipine 5 mg tablet 2.5 mg PO DAILY #30 tabs 08/21/22 08/24/22 Rx polyethylene glycol 3350 17 gram 17 g PO DAILY PRN constipation #30 08/21/22 08/24/22 Rx oral powder packet (Miralax) ea sennosides 8.6 mg-docusate sodium 1 tab PO BID PRN Constipation #60 08/21/22 08/24/22 Rx 50 mg tablet (Senokot-S) tabs Patient History Medical History Bladder cancer CKD (chronic kidney disease) stage 4, GFR 15-29 ml/min Diabetes mellitus DMII (diabetes mellitus, type 2) Dyslipidemia GERD (gastroesophageal reflux disease) Gout H/O prostate cancer HTN (hypertension) Hydronephrosis due to obstructive malignant bladder cancer Melanoma Protein calorie malnutrition Surgical History H/O cystoscopy 12/2021 with fulguration of bladder tumor 11/2021 witth fulguration of bladder tumor H/O umbilical hernia repair History of mandibular surgery 1975 S/P urological surgery IR drainage catheter change right, 02/22 place percutaneous nephrostomy tube- [facility] Family History Brother Cancer Social History Smoking Status: Never smoker Tobacco Type: Smokeless Tobacco (Dip or Chew) Hx Alcohol Use: No (quit drinking november 2021) Hx Substance Use: No Preferred Language: [place] Communication Ability: Effective [place] Required: No Beliefs That Will Affect Care: None Current Living Situation: Alone Other Information That Helps Us Care for You: No Feels Safe at Home: Yes Safety Concerns: Feels Safe At This Time Assistive Devices: None Review of Systems Review of Systems: All systems reviewed & are unremarkable except as noted in HPI & below Constitutional: as per Subjective / HPI Gastrointestinal: as per Subjective / HPI Genitourinary: + as per Subjective / HPI Physical Exam Constitutional: no acute distress Eyes: no scleral abnormality Neck: trachea midline Respiratory: normal respiratory effort; no respiratory distress and no labored breathing Cardiovascular: Extremities: no pedal edema Gastrointestinal (Abdomen): Inspection/Auscultation: abdomen normal to inspection; abdomen not distended Percussion/Palpation: abdomen soft; abdomen nontender Musculoskeletal: Head/Neck/Chest: normocephalic and head atraumatic Neurologic: moves all extremities and awake Psychiatric: Orientation: alert and oriented x 3 Genitourinary: Nash patent and draining light pink urine at time of exam No output from right nephrostomy tube Results & Data Vital Signs (Past 12 Hours) Vital Signs Temp Pulse Pulse Pulse Resp BP BP 08/25/22 05:29 36.9 C 08/25/22 03:17 130 H 08/25/22 03:00 38.3 C H 104 H 20 148/64 H 08/25/22 01:27 38 C H 134 H 18 190/98 H 08/25/22 00:57 38.0 C H 134 H 20 190/98 H 08/25/22 00:30 116 H 17 08/25/22 00:00 108 H 17 08/24/22 23:30 97 H 18 08/25/22 00:16 08/24/22 22:42 98 H 08/24/22 23:00 98 H 18 145/84 H 08/24/22 22:52 97 H 25 H 08/24/22 22:30 84 17 08/24/22 22:00 83 22 08/24/22 21:30 81 17 08/24/22 21:00 83 18 08/24/22 20:30 79 16 08/24/22 20:00 79 18 08/24/22 19:30 89 16 08/24/22 22:52 93 H 15 BP Pulse Ox O2 Del Method 08/25/22 05:29 08/25/22 03:17 08/25/22 03:00 95 Room Air 08/25/22 01:27 99 Room Air 08/25/22 00:57 99 Room Air 08/25/22 00:30 08/25/22 00:00 08/24/22 23:30 06/09/23 00:16 Room Air 08/24/22 22:42 08/24/22 23:00 08/24/22 22:52 08/24/22 22:30 08/24/22 22:00 08/24/22 21:30 08/24/22 21:00 08/24/22 20:30 08/24/22 20:00 08/24/22 19:30 99 08/24/22 22:52 145/84 H 98 Room Air PG Care Time/CCT Total # of Minutes Spent Total Time Spent with Patient: Total time spent is greater than 50% in coordination of care (as documented) at patient's floor/unit and/or counseling patient: Coding Level of Care Code 29668 INT INP/OBS CARE 2/55MIN Diagnoses Bladder cancer C67.9 Hydronephrosis due to obstructive malignant bladder cancer N13.30; C67.9 Obstructed nephrostomy tube T83.092A Acute urinary retention R33.8 UTI (urinary tract infection) N39.0 Time Spent (min) 60
[2022-08-25] MEDS ORDERED: THIAMINE HCL 50 MG TABLET PO SCH (09:00)
[2022-08-25] MEDS ORDERED: VITAMIN B COMPLEX TAB PO SCH (09:00)
[2022-08-25] MEDS ORDERED: allopurinoL 100 MG TAB PO SCH (09:00)
[2022-08-25] MEDS ORDERED: oxyCODONE HCL IR 5 MG TAB (IMMEDIATE RELEASE) PO PRN (10:30)
[2022-08-25 12:17] LABS: Hematocrit (blood only) 25.7 % (42.0-52.0); Hemoglobin 8.2 g/dl (14.0-18.0)
[2022-08-25] MEDS ORDERED: SODIUM CHLORIDE 0.9% 500 ML IV SCH (13:15)
--- NOTE | 2022-08-25 13:49 | Hospitalist Progress Note ---
Date of Service August 25, 2022 Assessment & Plan (1) Hydronephrosis due to obstructive malignant bladder cancer: (2) CKD (chronic kidney disease) stage 4, GFR 15-29 ml/min: (3) Sepsis: Plan: Patient is a 71-year-old male with history of bladder cancer on Keytruda every 6 weeks, for right-sided hydronephrosis status post PCN, history of prostate cancer s/p radiation, CKD, anemia presented to the hospital after he noticed blood around the Ansh catheter and inability to drain urine from the Nash catheter. Recently admitted from 08/18/2022 to 08/21/2022 with leakage from nephrostomy tube site and decreased output in the nephrostomy bag. He had Nash placed during the hospitalization and saw his urologist a day after the discharge. The plan was to exchange the right nephrostomy tube and place another nephrostomy tube on the left side. Patient febrile with Tmax of 38.3 C since admission Leukocytosis of 24,000 Urinalysis suggestive of infection with positive nitrate, leukocyte esterase and greater than 30 WBC BUN/creatinine at baseline of 2.4. EKG reviewed personally; sinus rhythm with occasional PVC; nonspecific T wave changes. Currently on empiric Zosyn. We will follow-up on urine culture and blood culture. Irrigate Nash as needed Discussion done with urology; recommend transfer to tertiary care center for placement of nephrostomy tube on the left side and exchange of nephrostomy tube on right side. Discussion done with system tries officer at transfer center at [facility]. Discussed that patient is at high risks of decompensation if obstruction is not relieved. Patient accepted by Dr. Santiago Shah. Transfer when bed is available Plan Other conditions; Chronic anemia. Hemoglobin at baseline of 8.2. Follow H and H q. 6 hours. Blood consent obtained. Last admission, 1 unit of PRBC. Chronic hyponatremia. Sodium is 130 at admission; 132 today. Continue IV hydration Chronic kidney disease, stage III. Baseline creatinine 2.4, Seems at baseline. W Hypertension. On last admission, amlodipine was decreased to 2.5 mg, which will be continued. Monitor the blood pressure. History of metastatic bladder cancer, status post bladder tumor, fulguration. Currently on chemotherapy with Keytruda.Follow up with oncology. Prostate cancer, status post radiation. Diabetes. We will hold his home medication. Place him on insulin sliding scale. Follow the blood sugars. Deep venous thrombosis prophylaxis. Sequential compression devices as the patient has hematuria and anemia. Code status, Full code. Time spent evaluating patient, direct bedside care, chart review, placing orders, interpretation of diagnostic studies, discussion with consultants, patient, and family members, as well as other required patient management activities is 90 minutes. Please note the above document was generated using voice recognition software. It may contain grammatical, syntax or spelling errors. Any formal questions or concerns about the content, text or information contained within the body of this dictation should be directly addressed to the provider for clarification Admission and Anticipated Discharge Date Admission Date: August 24, 2022 Subjective Patient seen and examined at bedside. He is lying in the bed; reports tiredness and weakness. No output from his nephrostomy tube on the right side. Has some output from Nash catheter with irrigation. Febrile to Tmax of 38.3 C Review of Systems Review of Systems: All systems reviewed & are unremarkable except as noted in Subjective Physical Exam Physical Exam: Constitutional: Awake, alert orient x3; appears tired Respiratory: normal respiratory effort, lungs clear to auscultation, no wheeze, rales, rhonchi. Normal insp/exp effort, no accessory muscle use Cardiovascular: RRR, no murmur, no edema Vessels: no JVD or carotid bruit Chest: normal inspection of chest Abdomen: Right-sided nephrostomy tube without any output. Nash with red drainage. Musculoskeletal: no cyanosis or clubbing, extremities motor strength 5/5 Skin: no rashes, warm and dry normal turgor Neurologic: PERRL, EOMI, accommodation nl, no face palsy, no dysarthria CN's II- XI intact bilaterally and moves all extremities Psychiatric: A+Ox3, euthymic affect Results & Data Results & Data Vital Signs (Past 12 Hours) Vital Signs Temp Pulse Pulse Resp BP Pulse Ox O2 Del Method 08/25/22 11:58 37.9 C H 124 H 20 125/76 96 Room Air 08/25/22 08:00 87 08/25/22 07:48 36.7 C 75 16 129/63 99 Room Air 08/25/22 05:29 36.9 C 08/25/22 03:17 130 H 08/25/22 03:00 38.3 C H 104 H 20 148/64 H 95 Room Air Laboratory Results Laboratory Results WBC 24.26 K/ul (4.8-10.8) H 08/25/22 06:44 RBC 3.12 M/uL (4.70-6.10) L 08/25/22 06:44 Hgb 8.2 g/dl (14.0-18.0) L 08/25/22 11:57 Hct 25.7 % (42.0-52.0) L 08/25/22 11:57 MCV 78.8 fL (80.0-100.0) L 08/25/22 06:44 MCH 24.7 pg (25.0-34.0) L 08/25/22 06:44 MCHC 31.3 g/dL (32.0-36.0) L 08/25/22 06:44 RDW Std Deviation 58.1 fL (36.4-46.3) H 08/25/22 06:44 RDW Coeff of Krystal 20.6 % (11.5-14.5) H 08/25/22 06:44 Plt Count 297 K/uL (130-400) 08/25/22 06:44 MPV 8.5 fL (9.4-12.4) L 08/25/22 06:44 Immature Gran % (Auto) 1.2 % 08/25/22 06:44 Neut % (Auto) 89.3 % 08/25/22 06:44 Lymph % (Auto) 5.6 % 08/25/22 06:44 [place] % (Auto) 2.6 % 08/25/22 06:44 Eos % (Auto) 1.2 % 08/25/22 06:44 Baso % (Auto) 0.1 % 08/25/22 06:44 Neut # (Auto) 21.67 K/uL (1.40-6.50) H 08/25/22 06:44 Lymph # (Auto) 1.36 K/uL (1.2-3.4) 08/25/22 06:44 [place] # (Auto) 0.62 K/uL (0.11-0.59) H 08/25/22 06:44 Eos # (Auto) 0.30 K/uL (0-0.50) 08/25/22 06:44 Baso # (Auto) 0.03 K/uL (0-0.2) 08/25/22 06:44 Immature Gran # (Auto) 0.28 K/uL (0.01-0.20) H 08/25/22 06:44 Polychromasia 1+ 08/25/22 06:44 Anisocytosis Present 08/25/22 06:44 Sodium 132 mmol/L (136-145) L 08/25/22 06:44 Potassium 3.5 mmol/L (3.5-5.1) 08/25/22 06:44 Chloride 103 mmol/L (98-107) 08/25/22 06:44 Carbon Dioxide 18 mmol/L (21-32) L 08/25/22 06:44 Anion Gap 11 (3-11) 08/25/22 06:44 BUN 48 mg/dl (6-23) H 08/25/22 06:44 Creatinine 2.40 mg/dl (0.6-1.4) H 08/25/22 06:44 Est Cr Clr Drug Dosing 27.4 ml/min 08/25/22 06:44 Est GFR ( Amer) 29.9 ml/min 08/25/22 06:44 Est GFR (Non-Af Amer) 25.8 ml/min 08/25/22 06:44 BUN/Creatinine Ratio 20.0 (10-20) 08/25/22 06:44 Glucose 149 mg/dl (70-99(Fasting)) H 08/25/22 06:44 POC Glucose 153 mg/dl (70-99) H 08/25/22 12:37 Calcium 8.9 mg/dl (8.6-10.3) 08/25/22 06:44 Magnesium 1.6 mg/dl (1.7-2.4) L 08/25/22 06:44 Total Bilirubin 0.6 mg/dl (0.2-1.0) 08/24/22 18:39 AST 14 U/L (13-39) 08/24/22 18:39 ALT 12 U/L (7-52) 08/24/22 18:39 Alkaline Phosphatase 89 U/L (34-104) 08/24/22 18:39 Total Protein 6.5 gm/dl (6.0-8.3) 08/24/22 18:39 Albumin 2.8 gm/dl (3.4-5.0) L 08/24/22 18:39 Globulin 3.7 gm/dl (2.5-4.0) 08/24/22 18:39 Albumin/Globulin Ratio 0.8 (0.9-2) L 08/24/22 18:39 Lipase 17 U/L (11-82) 08/24/22 18:39 Urine Color Red 08/25/22 05:48 Urine Appearance Cloudy (Clear) A 08/25/22 05:48 Urine pH 5.0 (4.5-7.5) 08/25/22 05:48 Ur Specific [place] 1.010 (1.000-1.030) 08/25/22 05:48 Urine Protein 3+ (Negative) H 08/25/22 05:48 Urine Glucose (UA) Negative (Negative) 08/25/22 05:48 Urine Ketones Negative (Negative) 08/25/22 05:48 Urine Blood 3+ (Negative) H 08/25/22 05:48 Urine Nitrite Positive (Negative) A 08/25/22 05:48 Urine Bilirubin 1+ (Negative) H 08/25/22 05:48 Urine Urobilinogen Negative (Negative) 08/25/22 05:48 Ur Leukocyte Esterase 2+ (Negative) H 08/25/22 05:48 Urine WBC (Auto) >30 /hpf (0-5) H 08/25/22 05:48 Urine RBC (Auto) >30 /hpf (0-4) H 08/25/22 05:48 U Hyaline Cast (Auto) 0 /lpf (0-5) 08/25/22 05:48 U Epithel Cells (Auto) 5-10 /lpf (0-5) H 08/25/22 05:48 Urine Bacteria (Auto) Negative (Negative) 08/25/22 05:48 Urine RBC >30 /hpf (0-4) H 08/24/22 21:13 Urine WBC 10-30 /hpf (0-5) H 08/24/22 21:13 Ur Epithelial Cells 0-5 /lpf (0-5) 08/24/22 21:13 Urine Bacteria Negative (Negative) 08/24/22 21:13 Hyaline Casts 0-5 /lpf (0-5) 08/24/22 21:13 Urine Yeast Not Reportable 08/25/22 05:48 SARS-CoV-2, RNA, NAAT NEGATIVE (NEGATIVE) 08/24/22 18:34
--- NOTE | 2022-08-25 14:18 | Discharge Summary ---
Date of Service August 25, 2022 Admission HPI Per Admitting Provider This is a 71-year-old male with past medical history significant for hypertension, bladder cancer, currently on Keytruda every 6 weeks, next dose is on 09/12/2022, right hydronephrosis, status post percutaneous nephroureteral tube placement, prostate cancer, status post radiation, diabetes, on oral medication, GUSTAVO, baseline creatinine around 2.7 currently, history of chronic anemia, baseline hemoglobin around 8, recurrent admissions for complicated UTI and GUSTAVO, was recently in the hospital as he was having right flank pain and leakage from nephrostomy tube collection site and then it was decreased input in the nephrostomy bag and worsening hydronephrosis noted on CT scan. At that time in the ER, as per urology recommendation, Nash was inserted with 1.4 L of bloody urine drainage. At that time, plans were to transfer to tertiary care for nephrostomy tube exchange, but there was no bed at [place] and decided to keep the patient in [facility] and with Nash catheter had good urine drainage and was planned to follow as outpatient if stable. The patient did okay. It looks like he was also on antibiotics Zosyn and was on fluconazole for Hilda in urine cultures. Blood culture showed no growth and antibiotics discontinued per ID recommendations. Hematuria was improving and hemoglobin is stable. He received 1 unit of PRBC last admission and he was discharged on 08/21/2022 .And the patient followed urology after discharge on 08/22/2022 and recommendation was and to discontinue Nash catheter once the bilateral nephrostomy tubes are placed. But today, the patient noticed some blood in the catheter bag and also was not able to drain any urine in the Nash catheter, so came to the ER. In the ER, Nash catheter was changed but still not much coming out and there is some mild pressure in his bladder, but not as bad as last admission. ER called [facility], but still [facility] has no bed And Jermaine seems no IR tomorrow and as per the ER, there is no bed in [place], so we are admitting the patient overnight and consult urology and watch him here. He has leukocytosis of 25,000, but it was mostly same at the time of discharge. Hemoglobin 7.9, it was 8.4 at the time of discharge, sodium is 130. Also, has chronic hyponatremia. Creatinine is 2.4,at baseline. Currently, resting comfortably and hemodynamically stable. No other complaints. Denies any headache, no dizziness, no blurred visions, no earache, no runny nose, no sore throat, no cough, no chest pain, no shortness of breath. Appetite is down. He did not eat too much today. No nausea. There is some abdominal pressure. No significant pain. Normal bowel movements. He was constipated before, but now he has loose stools. Able to ambulate okay as per the patient. Admission Exam Per Admitting Provider GENERAL: The patient is of moderate build, not in acute distress. VITAL SIGNS: Temperature 36, pulse 85, respiratory rate 20, blood pressure 143/73, oxygen 100% on room air. HEENT: Pupils equal, round and reactive to light. Oral mucosa moist. NECK: No JVD, no neck masses. CARDIOVASCULAR: S1 and S2 heard. Regular rate and rhythm. No murmur, no gallop. RESPIRATORY SYSTEM: Normal AP diameter. No accessory muscle use. No wheezing or crackles. ABDOMEN: Soft, bowel sounds present, nontender, no distention. Nephrostomy tube site seen on the right flank. No erythema or drainage seen around the nephrostomy tube. Nash catheter. Mild increased drainage seen. CENTRAL NERVOUS SYSTEM: Cranial nerves II through XII grossly intact, nonfocal. EXTREMITIES: No edema, no erythema. 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 Normal insp/exp effort, no accessory muscle use Cardiovascular: RRR, no murmur, no edema Vessels: no JVD or carotid bruit Chest: normal inspection of chest Abdomen: Right-sided nephrostomy tube without any output. Nash with red drainage. Musculoskeletal: no cyanosis or clubbing, extremities motor strength 5/5 Skin: no rashes, warm and dry normal turgor Neurologic: PERRL, EOMI, accommodation nl, no face palsy, no dysarthria CN's II- XI intact bilaterally and moves all extremities Psychiatric: A+Ox3, euthymic affect Discharge Data Allergies Allergy/AdvReac Type Severity Reaction Status Date / Time No Known Allergies Allergy Verified 08/18/22 22:07 Consultations 08/24/22 21:26 ED Decision to Admit Stat 08/25/22 08:00 Consult Urology Routine Ordered Studies 08/25/22 12:02 US Renal Bladder [US renal/blad retro comp] Routine Hospital Course (1) 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 Recently admitted from 08/18/2022 to 08/21/2022 with leakage from nephrostomy tube site and decreased output in the nephrostomy bag. He had Nash placed during the hospitalization and saw his urologist a day after the discharge. The plan was to exchange the right nephrostomy tube and place another nephrostomy tube on the left side. Patient febrile with Tmax of 38.3 C since admission Leukocytosis of 24,000 Urinalysis suggestive of infection with positive nitrate, leukocyte esterase and greater than 30 WBC BUN/creatinine at baseline of 2.4. EKG reviewed personally; sinus rhythm with occasional PVC; nonspecific T wave changes. Currently on empiric Zosyn. We will follow-up on urine culture and blood culture. Irrigate Nash as needed Discussion done with urology; recommend transfer to tertiary care center for placement of nephrostomy tube on the left side and exchange of nephrostomy tube on right side. Discussion done with system tries officer at transfer center at [facility]. Discussed that patient is at high risks of decompensation if obstruction is not relieved. Patient accepted by Dr. Santiago Shah. Plan Other conditions; Chronic anemia. Hemoglobin at baseline of 8.2. Follow H and H q. 6 hours. Blood consent obtained. Last admission, 1 unit of PRBC. Chronic hyponatremia. Sodium is 130 at admission; 132 today. Continue IV hydration Chronic kidney disease, stage III. Baseline creatinine 2.4, Seems at baseline. W Hypertension. On last admission, amlodipine was decreased to 2.5 mg, which will be continued. Monitor the blood pressure. History of metastatic bladder cancer, status post bladder tumor, fulguration. Currently on chemotherapy with Keytruda.Follow up with oncology. Prostate cancer, status post radiation. Diabetes. We will hold his home medication. Place him on insulin sliding scale. Follow the blood sugars. Deep venous thrombosis prophylaxis. Sequential compression devices as the patient has hematuria and anemia. Code status, Full code. Please note the above document was generated using voice recognition software. It may contain grammatical, syntax or spelling errors. Any formal questions or concerns about the content, text or information contained within the body of this dictation should be directly addressed to the provider for clarification Total Time Total Time Spent Total Time Spent (In Minutes): 90 Discharge Plan Discharge Items Patient Disposition: Transfer Acute [facility] Reason For Visit: URINARY CATH PLACEMENT Discharge Diagnosis: (1) Hydronephrosis due to obstructive malignant bladder cancer: (2) CKD (chronic kidney disease) stage 4, GFR 15-29 ml/min: (3) Sepsis: Activity: Resume your previous activity Non-emergency contact: Primary Care Provider Call non-emergency contact if: you have any medication questions and your symptoms worsen Follow-up/Referrals: Carlitos Chaparro MD [Primary Care Provider] - Diet: Regular Addtl Attending Provider Instructions: Patient is a 71-year-old male with history of bladder cancer on Keytruda every 6 weeks, for right-sided hydronephrosis status post PCN, history of prostate c ancer s/p radiation, CKD, anemia presented to the hospital after he noticed blood around the Nash catheter and inability to drain urine from the Nash catheter. Recently admitted from 08/18/2022 to 08/21/2022 with leakage from nephrostomy tube site and decreased output in the nephrostomy bag. He had Nash placed during the hospitalization and saw his urologist a day after the discharge. The plan w as to exchange the right nephrostomy tube and place another nephrostomy tube on the left side. Patient febrile with Tmax of 38.3 C since admission Leukocytosis of 24,000 Urinalysis suggestive of infection with positive nitrate, leukocyte esterase and greater than 30 WBC Creatinine at baseline of 2.4. Currently on empiric Zosyn. Urine culture and blood culture pending Irrigate Nash as needed Discussion done with urology; recommend transfer to tertiary care center for placement of nephrostomy tube on the left side and exchange of nephrostomy tube on right side. Discussion done with system tries officer at transfer center at [facility]. Discussed that patient is at high risks of decompensation if obstruction is not relieved. Patient accepted by Dr. Santiago Shah. Pending Studies at Discharge: No Stand-Alone Forms: My [facility] Skilled Items Patient informed of condition?: Yes DNR: No Discharge Level of Care: Other Communicable Disease: No Discharge Prognosis: Stable Lines: Peripheral IV Urinary Catheter: Yes Medications and DC Order Prescriptions: Continued allopurinol 100 mg tablet 100 mg PO QAM omeprazole 20 mg capsule,delayed release(DR/EC) 20 mg PO DAILYBB vitamin B complex Capsule 1 cap PO DAILY cinnamon bark [Cinnamon] 500 mg Capsule 2,000 mg PO DAILY acetaminophen [Tylenol Extra Strength] 500 mg Tablet 1,000 mg PO TID PRN (Reason: Pain) thiamine HCl (vitamin B1) 50 mg Tablet 50 mg PO DAILY sodium chloride 0.9 % (flush) Syringe 10 ml intra-catheter BID Tradjenta 5 mg Tablet 5 mg PO DAILY polyethylene glycol 3350 [Miralax] 17 gram Powder In Packet 17 g PO DAILY PRN (Reason: constipation) Qty: 30 1RF sennosides-docusate sodium [Senokot-S] 8.6-50 mg Tablet 1 tab PO BID PRN (Reason: Constipation) Qty: 60 1RF amlodipine 5 mg Tablet 2.5 mg PO DAILY Qty: 30 0RF Discharge Orders: Discharge Order (Routine); Ordered 08/25/22 Ordered By: Santo Álvarez Admission Data Admit Date/Time: 08/24/22 22:35 Attending Provider: Santo Álvarez Admit Provider: Miguelito Boone Primary Care Provider: Carlitos Chaparro Other Providers: Miguelito Boone ; Fred Ford ; Donovan Benton ; Andrea De La Torre ; Ruthy Grey ; Jayme Shah ; Elenita Scott ; Rosa Matthews ; Jaiden Gregory ; Prakash Gonzalez ; Jenny Montiel ; Forrest Reno ; Mikey Presley. Other Interventions: Discharge Summary Assessment (RN) Last Done: 08/25/22 14:19
--- NOTE | 2022-08-25 15:49 | Ultrasound Report ---
ULTRASOUND KIDNEYS AND BLADDER CLINICAL HISTORY: Hydronephrosis. Nephrostomy tube. COMPARISON STUDY: Abdominal CT dated 08/19/2022. TECHNIQUE: Real-time, grayscale, and color flow sonography of the kidneys and bladder is performed. I mages are reviewed in the transverse and longitudinal planes. FINDINGS: Kidneys: The kidneys are normal in size and echotexture. The right kidney measures 11.9 cm in length and the left kidney measures 12.8 cm in length. There is moderate left-sided hydronephrosis. A right ureteral stent is partially visualized. No hydronephrosis is seen on the right. Dirty shadowing withi n the right renal pelvis may represent gas within the collecting system. No shadowing renal calculi a re identified. There is no sonographic evidence of contour deforming renal mass lesion. No perinephri c fluid is identified. Bladder: The bladder is decompressed around a Nash catheter and is not well evaluated. Imaged portio ns of the bladder wall appears irregularly thickened. IMPRESSION: 1. There is no right-sided hydronephrosis. 2. Moderate hydronephrosis on the left. 3. Question gas within the right renal collecting system. 4. The bladder is decompressed and the wall appears irregularly thickened. ACT 112: Negative or not required by law. Electronically signed by: Fazal Paulino M.D. 08/25/2022 3:48 PM
[2022-08-25] MEDS ORDERED: cefTRIAXone SODIUM 2,000 MG in DEXTROSE 5% 50 ML IV SCH (20:00)
--- NOTE | 2022-08-27 05:44 | Electrocardiogram Report ---
Test Reason : Blood Pressure : / mmHG Vent. Rate : 086 BPM Atrial Rate : 086 BPM P-R Int : 170 ms QRS Dur : 082 ms QT Int : 354 ms P-R-T Axes : 056 010 041 degrees QTc Int : 423 ms Sinus rhythm with occasional Premature ventricular complexes Otherwise normal ECG When compared with ECG of 19-AUG-2022 00:04, Premature ventricular complexes are now Present Vent. rate has decreased BY 69 BPM Nonspecific T wave abnormality no longer evident in Lateral leads Confirmed by Jassi Doherty ([id number]) on 08/27/2022 5:44:09 AM Referred By: REFERRED SELF Confirmed By:Jassi Doherty
== END 2022-08-25 16:49 | disposition short-term general hospital (02) | DRG 698 ==
LOC: ED 16:00 → 2N 22:35